=== PATIENT | female | born 1970 | race Caucasian/White ===

== ENCOUNTER → 2016-11-24 | Outpatient (CLI) | payer OTHER ==
[~2016-11-24] MED LIST: CYMB60CA3 PO; DIPH25CA PO; EPIP0.3I2 INJ; LISI20TA3 PO; PERC5TAB6 PO; TRAZ100T4 PO; TRAZ150T14 PO
== END | disposition home or self-care (01) ==
LOC: M OUTALCOH 10:07
PROVIDERS: ATTEND Psychiatry & Neurology Psychiatry
DX: F15.20 Other stimulant dependence, uncomplicated (principal); F14.20 Cocaine dependence, uncomplicated

== ENCOUNTER → 2016-11-30 | Outpatient (REF) | payer OTHER ==
[2016-11-30 16:06] LABS: BASO # 0.1 K/mm3 (0.0-0.2); BASO % 1.2 % (0.0-1.0); EOS # 0.1 K/mm3 (0.0-0.50); LARGE UNSTAINED CELL # 0.1 K/mm3 (0.0-0.4); LARGE UNSTAINED CELL % 1.2 % (0.0-4.0); LYMPH # 1.6 K/mm3 (1.5-4.5); LYMPH % 15.5 % (24.0-44.0); MEAN CORPUSCULAR HEMOGLOBIN 28.8 pg (27.0-33.0); MEAN CORPUSCULAR HGB CONC 31.7 g/dl (32.0-36.5); MEAN CORPUSCULAR VOLUME 90.9 fl (80.0-96.0); MONO # 0.7 K/mm3 (0.0-0.8); MONO % 6.6 % (0.0-5.0); NEUTROPHILS # 7.4 K/mm3 (1.8-7.7); NEUTROPHILS % 74.7 % (36.0-66.0); PLATELET COUNT, AUTOMATED 444 k/mm3 (150-450); RED CELL DISTRIBUTION WIDTH 14.3 % (11.5-14.5); WHITE BLOOD COUNT 9.9 K/mm3 (4.0-10.0)
[2016-11-30 16:33] LABS: ALBUMIN 3.5 GM/DL (3.2-5.2); ALBUMIN/GLOBULIN RATIO 0.73 (1.00-1.93); ALKALINE PHOSPHATASE 66 U/L (45-117); ALT/SGPT 70 U/L (12-78); ANION GAP 12 MEQ/L (8-16); AST/SGOT 42 U/L (15-37); BILIRUBIN,TOTAL 0.3 MG/DL (0.2-1.0); BLOOD UREA NITROGEN 14 MG/DL (7-18); CALCIUM LEVEL 8.9 MG/DL (8.5-10.1); CARBON DIOXIDE LEVEL 29 MEQ/L (21-32); CHLORIDE LEVEL 108 MEQ/L (98-107); CREATININE FOR GFR 0.57 MG/DL (0.55-1.02); FREE T4 0.91 NG/DL (0.76-1.46); GLOMERULAR FILTRATION RATE > 60.0 (>58); GLUCOSE, FASTING 77 MG/DL (70-105); POTASSIUM SERUM 4.9 MEQ/L (3.5-5.1); SODIUM LEVEL 149 MEQ/L (136-145); TOTAL PROTEIN 8.3 GM/DL (6.4-8.2)
[2016-12-01 09:30] LABS: HEPATITIS B SURFACE ANTIBODY NEGATIVE (POSITIVE)
== END | disposition home or self-care (01) ==
LOC: M SFHCPLAZ 11:03
PROVIDERS: ATTEND Nurse Practitioner Family
DX: R76.8 Other specified abnormal immunological findings in serum (principal); F41.9 Anxiety disorder, unspecified

== ENCOUNTER → 2016-12-01 | Outpatient (REF) | payer MEDICAID, OTHER ==
[2016-12-04 10:09] LABS: BENZODIAZEPINES, URINE SCREEN Negative ng/mL (Cutoff=200); METHADONE, URINE SCREEN Negative ng/mL (Cutoff=300); pH, URINE 5.9 (4.5-8.9)
== END | disposition home or self-care (01) ==
LOC: M SFHCPLAZ 15:29
PROVIDERS: ATTEND Nurse Practitioner Family
DX: F19.10 Other psychoactive substance abuse, uncomplicated (principal); R11.0 Nausea

== ENCOUNTER → 2016-12-08 | Outpatient (CLI) | payer MEDICAID, OTHER ==
--- NOTE | 2016-12-08 09:45 | REP ---
Right upper quadrant sonography: History: Hepatitis C. Comparison CT study October 18, 2016. Findings: Scanning through the right upper quadrant of the abdomen demonstrates a normal sized thin-walled gallbladder without evidence of stone or polyp. Common bile duct is normal measuring 0.4 cm in greatest diameter. There are multiple hepatic cysts seen in both the right and left lobe. The largest left lobe cysts measure 2.4 and 2.3 cm in greatest diameter. The two largest cysts in the right lobe measure 2.3 and 3.1 cm in greatest diameter. These correlate well with CT findings. No solid liver mass lesion is appreciated. The liver is not felt to be enlarged. There is no evidence of ascites. No pancreatic abnormality is observed. Normal caliber aorta is seen. No right renal abnormality is seen. Right kidney measures 12.6 x 6.2 x 4.8 cm. Impression: Multiple hepatic cysts. Otherwise negative right upper quadrant sonography. Signed by Lucas Givens MD 12/08/2016 02:38 P
== END | disposition home or self-care (01) ==
LOC: M RAD 07:36
PROVIDERS: ATTEND Nurse Practitioner Family
DX: R76.8 Other specified abnormal immunological findings in serum (principal); K76.89 Other specified diseases of liver

== ENCOUNTER 2016-12-13 13:00 | Outpatient (RCR) | payer MEDICAID | END 2016-12-19 | disposition home or self-care (01) | LOC: M OUTALCOH 13:00 | PROVIDERS: ATTEND Psychiatry & Neurology Psychiatry | DX: F15.20 Other stimulant dependence, uncomplicated (principal); F14.20 Cocaine dependence, uncomplicated ==

== ENCOUNTER 2017-02-16 07:40 | Inpatient (IN) | payer MEDICAID, OTHER ==
[~2017-02-16] VITALS: Ht 162.6 cm; Wt 73.2 kg
[2017-02-16] MEDS ORDERED: BISACODYL 10 MG SUPP PR PRN (09:00)
[2017-02-16] MEDS ORDERED: ONDANSETRON 4 MG TAB (S0181) PO PRN (09:00)
[2017-02-16] MEDS ORDERED: MORPHINE 2 MG/ML 1ML SYRINGE IV PRN (09:00)
[2017-02-16 10:00] VITALS: BP 165/92
[2017-02-16 10:12] LABS: BASO % 0.4 % (0.0-1.0); EOS # 0.1 K/mm3 (0.0-0.50); EOS % 1.5 % (0.0-3.0); LARGE UNSTAINED CELL # 0.1 K/mm3 (0.0-0.4); LYMPH # 1.6 K/mm3 (1.5-4.5); LYMPH % 19.1 % (24.0-44.0); MEAN CORPUSCULAR HEMOGLOBIN 27.6 pg (27.0-33.0); MEAN CORPUSCULAR VOLUME 86.3 fl (80.0-96.0); MONO # 0.3 K/mm3 (0.0-0.8); MONO % 4.2 % (0.0-5.0); NEUTROPHILS % 73.7 % (36.0-66.0); PLATELET COUNT, AUTOMATED 310 k/mm3 (150-450); RED CELL DISTRIBUTION WIDTH 13.9 % (11.5-14.5); WHITE BLOOD COUNT 8.1 K/mm3 (4.0-10.0)
[2017-02-16 10:17] LABS: INR 0.99
[2017-02-16 10:34] LABS: ERYTHROCYTE SEDIMENTATION RATE 19 mm/hr (0-20)
[2017-02-16] MEDS ORDERED: TRAZ100T4 PO (10:34)
[2017-02-16] MEDS ORDERED: VITA-130 PO (10:35)
[2017-02-16] MEDS ORDERED: IBUP80TA PO (10:36)
[2017-02-16] MEDS: PERCOCET 5MG/325MG TAB PO PRN ×2 (10:37→18:50)
[2017-02-16 11:00] LABS: ALBUMIN 3.7 GM/DL (3.2-5.2); ALBUMIN/GLOBULIN RATIO 0.93 (1.00-1.93); ALKALINE PHOSPHATASE 61 U/L (45-117); ALT/SGPT 69 U/L (12-78); ANION GAP 10 MEQ/L (8-16); AST/SGOT 52 U/L (15-37); BILIRUBIN,TOTAL 0.2 MG/DL (0.2-1.0); BLOOD UREA NITROGEN 14 MG/DL (7-18); CALCIUM LEVEL 8.6 MG/DL (8.5-10.1); CARBON DIOXIDE LEVEL 27 MEQ/L (21-32); CHLORIDE LEVEL 104 MEQ/L (98-107); CREATININE FOR GFR 0.63 MG/DL (0.55-1.02); GLOMERULAR FILTRATION RATE > 60.0 (>58); GLUCOSE, FASTING 111 MG/DL (70-105); POTASSIUM SERUM 3.9 MEQ/L (3.5-5.1); SODIUM LEVEL 141 MEQ/L (136-145); T UPTAKE 30 % (30-39); THYROXINE (T4) 8.1 UG/DL (4.5-12.0); TOTAL PROTEIN 7.7 GM/DL (6.4-8.2)
[2017-02-16] MEDS ORDERED: LIDOCAINE 1% MDV 20ML VIAL As Ordered ONE (12:03)
[2017-02-16] MEDS: DULoxetine 30 MG CAP (CYMBALTA) PO SCH (13:21)
[2017-02-16] MEDS: SENOKOT S TAB PO SCH ×2 (13:21→22:15)
[2017-02-16] MEDS: ENOXAPARIN 30 MG/0.3 ML SYR (J1650) SC SCH (13:22)
[2017-02-16 14:00] VITALS: BP 146/85
--- NOTE | 2017-02-16 14:42 | REP ---
Clinical: Chest pain . Comparison: 10/07/2016 . Technique: PA and lateral. Findings: The mediastinum and cardiac silhouette are normal. The lung colindres are clear and without acute consolidation, effusion, or pneumothorax. The skeletal structures are intact and normal. Impression: 1. No acute cardiopulmonary process. Signed by García Regalado MD 02/16/2017 02:33 P
--- NOTE | 2017-02-16 17:23 | IPN ---
DATE: 02/16/2017 Isha was seen in [address] [place] [address]. She was a direct admit from the office by Serena Chow. She underwent image-guided biopsy of an area of discitis/osteomyelitis of vertebral spine. Dr. Adair, from infectious disease, is out of the country, but has been in communication. It was under her recommendation the patient was admitted, biopsy be obtained, sent for acid-fast bacillus culture and gram stain. She will be consulted upon her return. Neurosurgery has been consulted, as well, as they ordered the original imaging study. PHYSICAL EXAMINATION: She is resting in bed. LUNGS: Clear. HEART: Regular rate and rhythm. ABDOMEN: Soft, nontender. She has normal strength, sensation and reflexes in lower extremities. IMPRESSION: Vertebral osteomyelitis L3-L4 status post image-guided biopsy. Gram stain returned negative for any organisms. Cultures pending, Currently not on antibiotics. She is neurologically intact. Antibiotic therapy will be determined after the results of the culture come back.
--- NOTE | 2017-02-16 17:32 | IPN ---
DATE: 02/16/2015 I had a telephone conversation with Dr. Patt Adair. She is away, but plans on seeing the patient on Sunday. We reviewed the case. 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 This is based upon the lack of an elevated erythrocyte sedimentation rate and normal C-reactive protein with normal white count. Apparently propionibacterium acnes has been recognized as a cause of discitis without significant inflammation. 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 Recommendation was to start Rocephin 2 grams intravenously (IV) daily. Patient has an allergy to penicillin with hives, but benefit outweighs the risk and, under the recommendation from infectious disease, we will start the Rocephin. It is unlikely she will have a reaction. If she does, she will be here in the hospital and I will call the on-call hospitalist so they know about the pending Rocephin dosing.
[2017-02-16] MEDS: cefTRIAXone SOD 2 GM in D5W MINI-BAG PLUS 50 ML IV SCH (18:00)
--- NOTE | 2017-02-16 18:16 | REP ---
CT GUIDED L3-4 DISC BIOPSY: The procedure was performed under the direct supervision of Dr. Christopher. The risks and benefits of the procedure were explained to the patient and informed consent was obtained. The L3-4 disc space was localized using CT guidance. The skin was prepped and draped in a sterile fashion. 1% Xylocaine was used as a local anesthetic. Using CT guidance a 17/18-gauge coaxial needle biopsy system was inserted and 4 core biopsy samples were obtained and sent to the lab. The patient tolerated the procedure well and there were no immediate complications. Reviewed by TRACEY Wagoner 02/19/2017 06:51 PEdited and Signed by Faisal Christopher MD 02/22/2017 09:51 A
[2017-02-16 22:00] VITALS: BP 133/75
[2017-02-16] MEDS: traZODone 100 MG TAB PO SCH (22:15)
--- NOTE | 2017-02-16 22:23 | ECGEPIP ---
Stationary ECG Study [facility] Test Date: 2017-02-16 Pat Name: OLIVER THOMPSON Department: Room: [place] [address] Gender: F Manufacture Specialist: TERRI : 1970 Requested By: Serena COLON Order Number: [id number] Reading MD: Chris Dickinson Measurements Intervals [place] Rate: 75 P: 42 OH: 171 QRS: 35 QRSD: 93 T: 40 QT: 383 QTc: 430 Interpretive Statements Normal sinus rhythm Normal EKG Compared to prior tracing of 10/07/2016, heart rate is slower Electronically Signed On 02-16-2017 22:23:35 EDT by Chris Dickinson
[2017-02-17 06:00] VITALS: BP 121/75
[2017-02-17] MEDS: PERCOCET 5MG/325MG TAB PO PRN ×3 (07:43→22:44)
[2017-02-17] MEDS: SENOKOT S TAB PO SCH ×2 (09:11→21:17)
[2017-02-17] MEDS: DULoxetine 30 MG CAP (CYMBALTA) PO SCH (09:11)
[2017-02-17] MEDS: ENOXAPARIN 30 MG/0.3 ML SYR (J1650) SC SCH (09:12)
--- NOTE | 2017-02-17 10:55 | ECHO ---
DATE OF PROCEDURE: 02/16/2017 REFERRING PHYSICIAN: ISAIAH Thomas PATIENT LOCATION: Room 4216 REASON FOR ECHOCARDIOGRAM: Endocarditis. 2D MEASUREMENTS: IVS: 0.9 cm LV: 4.7 cm LVPW: 0.9 cm LA: 3.1 cm Aorta: 3.3 cm IVC: 1.3 cm DOPPLER MEASUREMENTS: Peak velocity across the aortic valve: 1.8 m/s Peak velocity across the LVOT: 1.5 m/s Mitral E: 1.0, Mitral A: 0.75, with a ratio of 1.3 Maximum tricuspid valve velocity: 2.0 m/s 2D COMMENTS: 1. Normal left ventricular size, wall thickness and normal global left ventricular systolic function. The estimated global left ventricular systolic ejection fraction is 65% to 70%. 2. Normal left atrium. Normal right atrium and right ventricle. 3. The atrial septum appeared to be normal without evidence of defect or shunt. 4. Normal aortic root. 5. No pericardial effusion. 6. Minimally calcified aortic valve with normal leaflet excursion. The mitral valve leaflets appeared to be normal in limited views. Normal tricuspid valve and pulmonic valve. The proximal pulmonary artery branches were not well visualized. 7. The inferior vena cava was normal in size, central venous pressure is most likely normal. DOPPLER: It detects trace tricuspid regurgitation. The calculated pulmonary artery systolic pressure was normal. There was a maximum gradient of 13 mmHg across the aortic valve with a mean gradient of 9 mmHg. Abnormal relaxation pattern was noted across the septal and lateral mitral valve annulus consistent with a pseudonormal pattern, left ventricular and diastolic pressure might be elevated. IMPRESSION: 1. Normal global left ventricular systolic function. There are some features of left ventricular diastolic dysfunction, but may be artifactual. 2. Aortic valve sclerosis with trivial aortic stenosis, but no evidence of obvious aortic regurgitation. 3. Trace tricuspid regurgitation with a normal calculated pulmonary artery systolic pressure. 4. No vegetations were noted in this transthoracic echocardiogram, but cannot be entirely ruled out. If any concern, to consider a transesophageal echocardiogram.
[2017-02-17 14:00] VITALS: BP 170/97
[2017-02-17 14:46] VITALS: BP 162/82
--- NOTE | 2017-02-17 15:00 | IPNPDOC ---
Subjective Date Seen The patient was seen on 02/17/17. Subjective Chief Complaint/HPI The patient is a 47-year-old female admitted with a reason for visit of Osteomyelitis, Discitis. Events since last encounter patient states she has some lower back aching on both sides but other rocha had no complaints; nurse is at bedside to recheck manual BP as automated SBP was high in 200s - repeat is improved Constitutional: Denies: Chills, Fever ENT: Denies: Head Aches Skin: Denies: Rash Pulmonary: Denies: Cough, Dyspnea Cardiovascular: Denies: Chest Pain, Palpitations Gastrointestinal: Denies: Abdominal Pain, Nausea, Vomiting Genitourinary: Denies: Dysuria Musculoskeletal: Reports: Back Pain (bilateral lower back pain) Neurological: Denies: Confusion, Incoordination, Numbness (denies paresthesias) , Weakness (walking without difficulty) Psych: Reports: Mood Normal Objective Physical Examination General Exam: Positive: Alert, No Acute Distress Eye Exam: Positive: Conjunctiva & lids normal, EOMI, PERRLA ENT Exam: Positive: Mucous membr. moist/pink Chest Exam: Positive: Clear to auscultation, Normal air movement Heart Exam: Positive: Normal S1, Normal S2, Rate Normal, Regular Rhythm, Negative: Murmurs Abdomen Exam: Positive: Normal bowel sounds, Soft, Negative: Tenderness Extremity Exam: Negative: Edema Skin Exam: Positive: Nl turgor and temperature, Negative: Rash Neuro Exam: Positive: Cranial Nerves 3-12 NL, Normal Gait, Normal Speech, Normal Tone, Strength at 5/5 X4 ext Psych Exam: Positive: Mental status NL, Mood NL, Oriented x 3 Other physical findings No back tenderness to palpation Assessment /Plan Problems (1) Discitis Status: Acute Problem Text: MRI with contrast done 02/12/[address] Hernández showed disciitis osteomyelitis at L3-L4 level with mild thecal sac compression. Inflammatory markers are normal (WBCs, ESR, CRP); per Dr. Adair, propionibacterium acnes can cause disciitis without significant inflammation, and appropriate treatment is being given with IV rocephin. Neuro exam is normal today and patient's pain is controlled on oxycodone/APAP as needed. CT-guided biopsy was done yesterday; gram stain shows few WBCs and no organisms ; cultures are pending. Dr. Hernández and Dr. Adair consulted - Dr. Adair to see her Sunday. (2) Anxiety Status: Chronic Response to Treatment: Stable Problem Text: Continue home cymbalta and trazodone QHS. (3) HTN (hypertension) Status: Chronic Problem Text: BP elevated upon manual recheck today. Patient states she was previously on triamterene-HCTZ (dose unknown) but this was stopped due to low BP. Will continue to monitor. (4) History of substance use Status: Chronic Response to Treatment: Stable Problem Text: Patient last used marijuana 11/2016 and cocaine in 2012; denies h/ o IV drug use. (5) Hepatitis C antibody positive in blood Status: Acute Problem Text: Per outpatient notes, patient's uses IV heroin and also tested positive for Hep C. Plan/VTE VTE Prophylaxis Ordered?: Yes (lovenox) VS, I&O, 24H, Fishbone Vital Signs/I&O Vital Signs Date Time Temp Pulse Resp B/P Pulse Ox O2 Delivery O2 Flow Rate FiO2 02/17/17 13:24 16 96 Room Air 02/17/17 06:00 96.8 69 121/75 I&O- Last 24 Hours up to 6 AM 02/17/17 06:00 Intake Total 750 ml Output Total 950 ml Balance -200 ml Laboratory Data Microbiology Microbiology 02/16/17 Blood Culture - Preliminary, Resulted No growth after 24 hours . All specim... 02/16/17 Anaerobic Culture, Received Pending 02/16/17 Gram Stain - Final, Resulted 02/16/17 Body Fluid Culture, Resulted Pending 02/16/17 Acid Fast Stain, Received Pending 02/16/17 Mycobacterial Culture, Received Pending 02/16/17 Gram Stain - Final, Resulted 02/16/17 Surgical Biopsy Culture, Resulted Pending JOLLY DICKINSON MD Feb 17, 2017 15:00
[2017-02-17] MEDS: cefTRIAXone SOD 2 GM in D5W MINI-BAG PLUS 50 ML IV SCH (18:10)
[2017-02-17] MEDS: traZODone 100 MG TAB PO SCH (21:17)
[2017-02-17 22:00] VITALS: BP 140/100
[2017-02-18 06:00] VITALS: BP 122/78
[2017-02-18] MEDS: DULoxetine 30 MG CAP (CYMBALTA) PO SCH (09:48)
[2017-02-18] MEDS: ENOXAPARIN 30 MG/0.3 ML SYR (J1650) SC SCH (09:48)
[2017-02-18] MEDS: SENOKOT S TAB PO SCH ×2 (09:48→21:33)
[2017-02-18] MEDS: PERCOCET 5MG/325MG TAB PO PRN ×3 (09:51→21:34)
[2017-02-18 11:04] LABS: MEAN CORPUSCULAR HEMOGLOBIN 27.3 pg (27.0-33.0); MEAN CORPUSCULAR HGB CONC 31.6 g/dl (32.0-36.5); MEAN CORPUSCULAR VOLUME 86.4 fl (80.0-96.0); RED CELL DISTRIBUTION WIDTH 13.9 % (11.5-14.5); WHITE BLOOD COUNT 6.6 K/mm3 (4.0-10.0)
[2017-02-18 11:28] LABS: ANION GAP 7 MEQ/L (8-16); BLOOD UREA NITROGEN 12 MG/DL (7-18); CALCIUM LEVEL 8.6 MG/DL (8.5-10.1); CARBON DIOXIDE LEVEL 30 MEQ/L (21-32); CHLORIDE LEVEL 105 MEQ/L (98-107); CREATININE FOR GFR 0.65 MG/DL (0.55-1.02); GLOMERULAR FILTRATION RATE > 60.0 (>58); GLUCOSE, FASTING 80 MG/DL (70-105); POTASSIUM SERUM 3.8 MEQ/L (3.5-5.1); SODIUM LEVEL 142 MEQ/L (136-145)
--- NOTE | 2017-02-18 13:27 | IPNPDOC ---
Subjective Date Seen The patient was seen on 02/18/17. Subjective Chief Complaint/HPI The patient is a 47-year-old female admitted with a reason for visit of Osteomyelitis, Discitis. Events since last encounter Patient is c/o worsening back pain today - states it is radiating up her back from her lower back. Constitutional: Denies: Chills, Fever Skin: Denies: Rash Pulmonary: Denies: Cough, Dyspnea Cardiovascular: Denies: Chest Pain, Palpitations Gastrointestinal: Denies: Abdominal Pain, Nausea, Vomiting Genitourinary: Denies: Dysuria Musculoskeletal: Reports: Back Pain, Denies: Neck Pain Neurological: Denies: Confusion, Numbness, Weakness Objective Physical Examination General Exam: Positive: Alert, No Acute Distress Eye Exam: Positive: Conjunctiva & lids normal, EOMI, PERRLA ENT Exam: Positive: Mucous membr. moist/pink Chest Exam: Positive: Clear to auscultation, Normal air movement Heart Exam: Positive: Normal S1, Normal S2, Rate Normal, Regular Rhythm, Negative: Murmurs Abdomen Exam: Positive: Normal bowel sounds, Soft, Negative: Tenderness Extremity Exam: Negative: Edema Skin Exam: Positive: Nl turgor and temperature, Negative: Rash Neuro Exam: Positive: Cranial Nerves 3-12 NL, Normal Gait, Normal Speech, Normal Tone, Strength at 5/5 X4 ext Psych Exam: Positive: Mental status NL, Mood NL, Oriented x 3 Assessment /Plan Problems (1) Discitis Status: Acute Problem Text: 02/18 - Disc tissue/fluid biopsies are positive for Staph aureus today; I d/w micro - determination of MRSA vs. MSSA should be available tomorrow. Will d/c ceftriaxone and give Vancomycin until MRSA these results are available. WBCs remain normal today. Due to increased pain, percocet increase today. 02/17 - MRI with contrast done 02/12/[address] Hernández showed disciitis osteomyelitis at L3-L4 level with mild thecal sac compression. Inflammatory markers are normal (WBCs, ESR, CRP); per Dr. Adair, propionibacterium acnes can cause disciitis without significant inflammation, and appropriate treatment is being given with IV rocephin. Neuro exam is normal today and patient's pain is controlled on oxycodone/APAP as needed. CT-guided biopsy was done yesterday; gram stain shows few WBCs and no organisms ; cultures are pending. Dr. Hernández and Dr. Adair consulted - Dr. Adair to see her Sunday. (2) Anxiety Status: Chronic Response to Treatment: Stable Problem Text: Continue home cymbalta and trazodone QHS. (3) HTN (hypertension) Status: Chronic Problem Text: 02/18 - BP has remained at goal. 02/17 - BP elevated upon manual recheck today. Patient states she was previously on triamterene-HCTZ (dose unknown) but this was stopped due to low BP. Will continue to monitor. (4) History of substance use Status: Chronic Response to Treatment: Stable Problem Text: Patient last used marijuana 11/2016 and cocaine in 2012; denies h/ o IV drug use. Toxicology ordered by Dr. Hernández - results are pending. (5) Hepatitis C antibody positive in blood Status: Acute Problem Text: Per outpatient notes, patient's uses IV heroin and also tested positive for Hep C. Plan/VTE VTE Prophylaxis Ordered?: Yes (lovenox) VS, I&O, 24H, Fishbone Vital Signs/I&O Vital Signs Date Time Temp Pulse Resp B/P Pulse Ox O2 Delivery O2 Flow Rate FiO2 02/18/17 10:22 16 Room Air 02/18/17 06:00 99.4 92 122/78 98 I&O- Last 24 Hours up to 6 AM 02/18/17 06:00 Intake Total 420 ml Output Total 550 ml Balance -130 ml Laboratory Data 24H LABS Laboratory Tests 2 02/17/17 16:01: 02/18/17 10:52: Anion Gap 7L, Blood Urea Nitrogen 12, Creatinine 0.65, Sodium Level 142, Potassium Level 3.8, Chloride Level 105, Carbon Dioxide Level 30, Calcium Level 8.6, Glomerular Filtration Rate > 60.0 CBC/BMP Laboratory Tests 02/18/17 10:52 Calcium Level 8.6, Red Blood Count 3.99 L, Mean Corpuscular Volume 86.4, Mean Corpuscular Hemoglobin 27.3, Mean Corpuscular Hemoglobin Concent 31.6 L, Red Cell Distribution Width 13.9 Microbiology Microbiology 02/16/17 Blood Culture - Preliminary, Resulted No Growth after 48 hours. All Specime... 02/16/17 Anaerobic Culture - Final, Complete 02/16/17 Gram Stain - Final, Resulted 02/16/17 Body Fluid Culture - Preliminary, Resulted Staphylococcus Aureus 02/16/17 Acid Fast Stain, Received Pending 02/16/17 Mycobacterial Culture, Received Pending 02/16/17 Gram Stain - Final, Resulted 02/16/17 Surgical Biopsy Culture - Preliminary, Resulted Staphylococcus Aureus JOLLY DICKINSON MD Feb 18, 2017 13:27
[2017-02-18 14:00] VITALS: BP 112/74
[2017-02-18] MEDS: VANCOMYCIN HCL 1,000 MG, VIAL MATE ADAPTER 1 EACH in D5W 250 ML IV SCH ×2 (14:04→21:33)
[2017-02-18] MEDS ORDERED: VANCOMYCIN HCL 750 MG, VIAL MATE ADAPTER 1 EACH in D5W 250 ML IV ONE (15:00)
--- NOTE | 2017-02-18 15:04 | PHACANCOPD ---
PHARMACY VANCOMYCIN DOSING Pt Demographics Demographics Patient Age:47 , Weight:72.500 , Gender: female Adjusted Body Weight Date: 02/18/17, Adjusted Body Weight: Kg Events Past 24 Hours Events Past 24 Hours: YES: Pending Diagnostics Vancomycin Vancomycin indication: vertebral discitis/osteomyelitis Vancomycin Target Ranges: 10-20 mcg/ml Vancomycin Load Y/N: Yes Load Dose Date Time Vancomycin Load Dose: 1750mg Date: 02/18/17 Time: 1400 Vancomycin Dose Date: 02/18/17. Current Vancomycin Dose: [1g IV Q8H] Intermittent Dosing?: No Labs Labs Item Value Date Time White Blood Count 6.6 K/mm3 02/18/17 1052 White Blood Count 8.1 K/mm3 02/16/17 1003 Creatinine 0.65 MG/DL 02/18/17 1052 Creatinine 0.63 MG/DL 02/16/17 1003 Micro Microbiology 02/16/17 Blood Culture - Preliminary, Resulted No Growth after 48 hours. All Specime... 02/16/17 Anaerobic Culture - Final, Complete 02/16/17 Gram Stain - Final, Resulted 02/16/17 Body Fluid Culture - Preliminary, Resulted Staphylococcus Aureus 02/16/17 Acid Fast Stain, Received Pending 02/16/17 Mycobacterial Culture, Received Pending 02/16/17 Gram Stain - Final, Resulted 02/16/17 Surgical Biopsy Culture - Preliminary, Resulted Staphylococcus Aureus Creatinine Clearance Date:02/18/17. Estimated Creatinine Clearance: [~99.2ml/min]. Pending Labs Vancomycin trough scheduled 02/19/17 @1300, prior to the 4th dose Assessment and Plan Maintaining Current Dose?: Yes Reason for dose change: No Dose Change Pharmacist Note Pharmacist Note Date: 02/18/17. Pharmacist note: Day #1 empiric vancomycin therapy initiated with a 1750mg loading dose, followed by a maintenance regimen of 1g IV Q8H for the treatment of L3/L4 vertebral discitis/osteomyelitis with resulting fluid/tissue cultures growing staph aureus - pending finalized report of MSSA or MRSA. We will aim for a goal trough of 10-20mcg/ml per provider. WBC currently WNL, and patient has been mildly febrile within the past 24 hours. No PMH of MRSA or vanco use here at [facility], but patient does have a PMH of illicit IV drug use. A vancomycin trough has been scheduled 02/19/17 @1300, prior to the 4th dose. We will continue to monitor and make adjustments as needed. BEVERLEY [facility] Feb 18, 2017 15:03
[2017-02-18] MEDS: traZODone 100 MG TAB PO SCH (21:33)
[2017-02-18 22:00] VITALS: BP 136/79
[2017-02-19] MEDS: VANCOMYCIN HCL 1,000 MG, VIAL MATE ADAPTER 1 EACH in D5W 250 ML IV SCH ×2 (05:24→14:24)
[2017-02-19 05:53] LABS: MEAN CORPUSCULAR HEMOGLOBIN 27.9 pg (27.0-33.0); MEAN CORPUSCULAR HGB CONC 31.9 g/dl (32.0-36.5); MEAN CORPUSCULAR VOLUME 87.4 fl (80.0-96.0); RED CELL DISTRIBUTION WIDTH 13.9 % (11.5-14.5); WHITE BLOOD COUNT 5.4 K/mm3 (4.0-10.0)
[2017-02-19 06:00] VITALS: BP 110/62
[2017-02-19 06:03] LABS: ANION GAP 7 MEQ/L (8-16); BLOOD UREA NITROGEN 13 MG/DL (7-18); CALCIUM LEVEL 7.8 MG/DL (8.5-10.1); CARBON DIOXIDE LEVEL 28 MEQ/L (21-32); CHLORIDE LEVEL 106 MEQ/L (98-107); CREATININE FOR GFR 0.52 MG/DL (0.55-1.02); GLOMERULAR FILTRATION RATE > 60.0 (>58); GLUCOSE, FASTING 113 MG/DL (70-105); POTASSIUM SERUM 3.7 MEQ/L (3.5-5.1); SODIUM LEVEL 141 MEQ/L (136-145)
[2017-02-19] MEDS: ENOXAPARIN 30 MG/0.3 ML SYR (J1650) SC SCH (08:19)
[2017-02-19] MEDS: DULoxetine 30 MG CAP (CYMBALTA) PO SCH (08:19)
[2017-02-19] MEDS: SENOKOT S TAB PO SCH ×2 (08:19→20:43)
--- NOTE | 2017-02-19 10:58 | IPNPDOC ---
Subjective Date Seen The patient was seen on 02/19/17. Subjective Chief Complaint/HPI Pt without new concerns. Reports good pain control. She is ambulating in the halls with her back brace on. General: Denies: Fatigue Constitutional: Denies: Chills, Fever Pulmonary: Denies: Cough, Dyspnea Cardiovascular: Denies: Chest Pain, Palpitations Gastrointestinal: Denies: Diarrhea, Nausea, Vomiting Musculoskeletal: Reports: Back Pain Psych: Reports: Mood Normal Objective Physical Examination General Exam: Positive: Alert, No Acute Distress Eye Exam: Positive: Conjunctiva & lids normal, EOMI, PERRLA ENT Exam: Positive: Mucous membr. moist/pink Chest Exam: Positive: Clear to auscultation, Normal air movement Heart Exam: Positive: Normal S1, Normal S2, Rate Normal, Regular Rhythm, Negative: Murmurs Abdomen Exam: Positive: Normal bowel sounds, Soft, Negative: Tenderness Extremity Exam: Negative: Edema Skin Exam: Positive: Nl turgor and temperature, Other skin issue (appears to have injection garzon on B arms, covered by makeup/foundation), Negative: Rash Neuro Exam: Positive: Cranial Nerves 3-12 NL, Normal Gait, Normal Speech, Normal Tone, Strength at 5/5 X4 ext Psych Exam: Positive: Mental status NL, Mood NL, Oriented x 3 Assessment /Plan Problems (1) Discitis Status: Acute Problem Text: 02/19 Mana consulted-PICC to be placed for 6W cefazolin-plan to live with mother for duration of therapy-obvious risk of misuse of CVC (last IV drug per SO ~4M prior)-previously established c outpatient drug rehab-consult PFS to re-establish with them at d/c 02/17 - MRI with contrast done 02/12/[address] Hernández showed disciitis osteomyelitis at L3-L4 level with mild thecal sac compression. Inflammatory markers are normal (WBCs, ESR, CRP); per Dr. Adair, propionibacterium acnes can cause disciitis without significant inflammation, and appropriate treatment is being given with IV rocephin. 02/16/17 L3/4 disc biopsy culture 2/2 MSSA + (same organism as 's endocarditis) (2) Anxiety Status: Chronic Response to Treatment: Stable Problem Text: Continue home cymbalta and trazodone QHS. (3) HTN (hypertension) Status: Chronic Problem Text: 02/18 - BP has remained at goal. 02/17 - BP elevated upon manual recheck today. Patient states she was previously on triamterene-HCTZ (dose unknown) but this was stopped due to low BP. Will continue to monitor. (4) History of substance use Status: Chronic Response to Treatment: Stable Problem Text: Patient last used marijuana 11/2016 and cocaine in 2012; denies h/ o IV drug use. Toxicology ordered by Dr. Hernández - results are pending. (5) Hepatitis C antibody positive in blood Status: Acute Problem Text: Per outpatient notes, patient's uses IV heroin and also tested positive for Hep C. Plan/VTE VTE Prophylaxis Ordered?: Yes (lovenox) VS, I&O, 24H, Fishbone Vital Signs/I&O Vital Signs Date Time Temp Pulse Resp B/P Pulse Ox O2 Delivery O2 Flow Rate FiO2 02/19/17 06:00 97.7 66 17 110/62 98 Room Air I&O- Last 24 Hours up to 6 AM 02/19/17 05:59 Intake Total 1645 ml Output Total 450 ml Balance 1195 ml Laboratory Data 24H LABS Laboratory Tests 2 02/19/17 05:40: Anion Gap 7L, Blood Urea Nitrogen 13, Creatinine 0.52L, Sodium Level 141, Potassium Level 3.7, Chloride Level 106, Carbon Dioxide Level 28, Calcium Level 7.8L, Glomerular Filtration Rate > 60.0 CBC/BMP Laboratory Tests 02/19/17 05:40 Calcium Level 7.8 L, Red Blood Count 3.77 L, Mean Corpuscular Volume 87.4, Mean Corpuscular Hemoglobin 27.9, Mean Corpuscular Hemoglobin Concent 31.9 L, Red Cell Distribution Width 13.9 Microbiology Microbiology 02/16/17 Blood Culture - Preliminary, Resulted No Growth after 72 hours. All specime... 02/16/17 Anaerobic Culture - Final, Complete 02/16/17 Gram Stain - Final, Complete 02/16/17 Body Fluid Culture - Final, Complete Staphylococcus Aureus 02/16/17 Acid Fast Stain, Received Pending 02/16/17 Mycobacterial Culture, Received Pending 02/16/17 Gram Stain - Final, Complete 02/16/17 Surgical Biopsy Culture - Final, Complete Staphylococcus Aureus LUCIAN WHITTAKERC Feb 19, 2017 10:58 Kiran Cantrell M.D. Feb 19, 2017 17:03 LUCIAN WHITTAKER PA-C Feb 19, 2017 10:58
[2017-02-19 14:00] VITALS: BP 109/56
[2017-02-19] MEDS: PERCOCET 5MG/325MG TAB PO PRN ×2 (14:24→20:44)
[2017-02-19] MEDS ORDERED: diphenhydrAMINE 25 MG CAP PO PRN (15:45)
--- NOTE | 2017-02-19 20:04 | CR ---
DATE OF CONSULTATION: 02/19/2017 TIME PATIENT WAS SEEN: 15:30 CONSULTING PHYSICIAN: Dr. Cantrell DOCUMENT MANAGEMENT SPECIALIST: Dr. Adair REASON FOR CONSULTATION: Osteomyelitis of the lumbar spine, discitis at L3 to L4 level. CHIEF COMPLAINT: Back pain. HISTORY OF PRESENT ILLNESS: 47-year-old female with anxiety, hypertension, history of IV substance abuse, Hepatitis C presented with severe back pain was sent from Dr. Hernández's office. Patient has having back pain for several months and it has been getting worse. She sees Dr. Hernández, neurosurgeon, and had an MRI done 02/12/2017 which showed discitis, osteomyelitis at level L3 through L4 with minimal thecal sac compression. However inflammatory markers has been normal. She did receive a CT guided aspiration and it showed patient has Staphylococcus aureus sensitive to everything except erythromycin and penicillin G. In addition, patient used to be a drug user, has been on cocaine and Soledad. Otherwise patient currently denies any fever or chills or chest pain, trouble breathing, abdominal pain, nausea, vomiting, diarrhea, constipation, problem with urination, still admits to severe lower back pain. ALLERGIES: Patient is allergic to erythromycin which makes her throat close. Iodine also makes her throat close. Penicillin she develops hives and shortness of breath and feels like her throat was closing. It was when she was a child. Bee venom gives her anaphylactic reaction same as seafood. HOME MEDICATIONS: - Vitamin C 500 mg by mouth every day - Benadryl 25 mg one tablet as needed - Cymbalta 60 mg one tablet by mouth every day - Epipen two packs 0.3 mg injection as directed as needed - ibuprofen 800 mg one tablet by mouth every 6 hours as needed - trazodone 100 mg one tablet by mouth at bedtime PAST MEDICAL HISTORY: Including 1. IV drug use. 2. Hypertension. 3. Chronic pain. 4. Insomnia. 5. Hepatitis C. 6. Anxiety. PAST SURGICAL HISTORY: 1. Hysterectomy. 2. Tonsillectomy. SOCIAL HISTORY: Patient is actively abusing substances, however she denies any tobacco or alcohol use. Currently not working. She did lose her custody of her 12-year-old son and she has been tested positive for opiates multiple times in the past. She has been to rehabilitation in the past as well. FAMILY HISTORY Non-contributory. REVIEW OF SYSTEMS: 12-point system reviewed, negative except as stated above. More significantly denies any fever, chills or chest pain, trouble breathing, abdominal pain, nausea, vomiting, diarrhea, constipation, any problem with urination still admits to lower back pain. Still admits to pain upon walking and also admits to a right sided leg cramp. PHYSICAL EXAMINATION: VITAL SIGNS: Temperature 98.7, pulse 82, respirations 17, blood pressure 109/56 , oxygen saturation 96% on room air. Patient is a morbidly obese female who was alert, awake, oriented times three who does not appear to be in distress lying comfortably in bed with head elevated at 45 degree angle. HEENT: Normocephalic, atraumatic. Extraocular motor intact. Mucous moist. NECK: Supple. No neck lymphadenopathy. CARDIOVASCULAR: Regular rate and rhythm. S1, S2. No murmurs, rubs or gallops. LUNGS: Clear to auscultation bilaterally. No wheezes, rales or rhonchi. ABDOMEN: Positive bowel sounds. Soft, non-tender, non-distended, no peritoneal signs. No ecchymosis. EXTREMITIES: No edema, clubbing or cyanosis. Significant track garzon were noted on b/l upper extremities. SKIN: Warm and dry. NEURO: Cranial nerves II through XII intact. No focal neuro deficit. Muscle strength was 5/5 bilaterally. No loss of sensation in bilateral lower extremity. Deep tendon reflexes were slightly reduced at the right side. LABS: WBC 5.4, hemoglobin 10.5, hematocrit 32.9 with platelet count of 287 and MCV of 87.4. PT 13.3, INR 0.99. Sodium 141, potassium 3.7, chloride 106, bicarbonate 28, BUN 13, creatinine 0.52 , Glomerular filtration rate (GFR) greater than 60, fasting glucose 130, calcium 7.8. Urine drug screen is currently pending. Patient had a CT guided needle aspiration of the back on 02/06/2017 which came back showing Staphylococcus aureus sensitive to clindamycin, gentamicin, Zyvox, oxacillin, tetracycline, Bactrim and vancomycin. Anaerobic culture was negative. Blood culture shows no growth after three days. Urine culture was positive for Escherichia coli (E.coli) which was rasheed sensitive. ASSESSMENT AND PLAN: 47-year-old female with past medical history of significant IV drug abuse, hypertension, anxiety, and also Hepatitis C presented with: 1. Severe back pain secondary to discitis at L3 through L4 level shown on MRI with contrast done on 02/12/2017. Patient's culture from CT guided needle biopsy shows Staphylococcus aureus with sensitive to clindamycin, gentamicin, Zyvox, oxacillin, tetracycline, Bactrim and vancomycin. Patient was on vancomycin 1 gram every 8 hours IV since 02/18/2017. Before that patient was on Rocephin from 02/16/2017 to 02/18/2017. Due to patient's penicillin allergy, we have switched patient to cefazolin 2 grams IV every 8 hours. Due to patient's penicillin allergy was more than 30 years when she was a child, 80% of people will outgrown the penicillin allergy after 10 years. In addition the cross reactivity between cefazolin and penicillin is less than 5%. She also had Rocephin on this admission without any reaction. At this point, we will likely keep patient on cefazolin 2 gram IV every 8 hours for 6 weeks. Patient will be going home with Peripherally inserted central catheter (PICC) line however patient will need home arrangement with her mother for the duration of the therapy. She will also need to establish outpatient drug rehabilitation due to the obvious risk of misuse of her Peripherally inserted central catheter (PICC) line. Patient will need outpatient follow up for her Hepatitis C. Patient has been discussed with attending doctor, Dr. Adair. My preceptor for this patient encounter was Dr. Dell Hernandez. The preceptor was physically present in the building during the encounter and was fully available as needed. All aspects of the patient interview, examination, medical decision making process, and medical care plan development were reviewed and approved by the preceptor. The preceptor is aware and concurs with the plan as stated in the body of this note and will attest to such by his/her co-signature. LYNDA
[2017-02-19] MEDS: traZODone 100 MG TAB PO SCH (20:43)
[2017-02-19 22:00] VITALS: BP 135/71
[2017-02-20 06:00] VITALS: BP 117/69
[2017-02-20] MEDS: SENOKOT S TAB PO SCH ×2 (08:30→20:02)
[2017-02-20] MEDS: DULoxetine 30 MG CAP (CYMBALTA) PO SCH (08:30)
--- NOTE | 2017-02-20 11:07 | IPNPDOC ---
Subjective Date Seen The patient was seen on 02/20/17. Subjective Chief Complaint/HPI Pt without new concerns. She is agreeable to go home with IV abx x 6, she met with Dr Adair yesterday. She plans on going to her mother's house. General: Denies: Fatigue Constitutional: Denies: Chills, Fever ENT: Denies: Head Aches Pulmonary: Denies: Cough, Dyspnea Cardiovascular: Denies: Chest Pain, Palpitations Gastrointestinal: Denies: Diarrhea, Nausea, Vomiting Musculoskeletal: Reports: Back Pain Psych: Reports: Mood Normal Objective Physical Examination General Exam: Positive: Alert, No Acute Distress ENT Exam: Positive: Mucous membr. moist/pink Chest Exam: Positive: Clear to auscultation, Normal air movement Heart Exam: Positive: Normal S1, Normal S2, Rate Normal, Regular Rhythm, Negative: Murmurs Abdomen Exam: Positive: Normal bowel sounds, Soft, Negative: Tenderness Extremity Exam: Negative: Edema Skin Exam: Positive: Nl turgor and temperature, Other skin issue (appears to have injection garzon on B arms, covered by makeup/foundation), Negative: Rash Neuro Exam: Positive: Normal Gait, Normal Speech Psych Exam: Positive: Mental status NL, Mood NL, Oriented x 3 Assessment /Plan Problems (1) Discitis Status: Acute Problem Text: 02/20 - ID recommended PICC (to be placed today), 6 w IV Cefazolin q8h. She hasn't completed intake at [facility] Addiction services. She plans to go home to her mother's home for duration of her IV abx. JFW: having intractable low back pain 05/28. No response to acetomen, restarted percocet 02/19 Mana consulted-PICC to be placed for 6W cefazolin-plan to live with mother for duration of therapy-obvious risk of misuse of CVC (last IV drug per SO ~4M prior)-previously established c outpatient drug rehab-consult PFS to re- establish with them at d/c 02/17 - MRI with contrast done 02/12/[address] Hernández showed disciitis osteomyelitis at L3-L4 level with mild thecal sac compression. Inflammatory markers are normal (WBCs, ESR, CRP); per Dr. Adair, propionibacterium acnes can cause disciitis without significant inflammation, and appropriate treatment is being given with IV rocephin. 02/16/17 L3/4 disc biopsy culture 2/2 MSSA + (same organism as 's endocarditis) (2) Anxiety Status: Chronic Response to Treatment: Stable Problem Text: Continue home cymbalta and trazodone QHS. (3) HTN (hypertension) Status: Chronic Problem Text: 02/18 - BP has remained at goal. 02/17 - BP elevated upon manual recheck today. Patient states she was previously on triamterene-HCTZ (dose unknown) but this was stopped due to low BP. Will continue to monitor. (4) History of substance use Status: Chronic Response to Treatment: Stable Problem Text: Patient last used marijuana 11/2016 and cocaine in 2012; denies h/ o IV drug use. Toxicology ordered by Dr. Hernández - results are pending. (5) Hepatitis C antibody positive in blood Status: Acute Problem Text: Per outpatient notes, patient's uses IV heroin and also tested positive for Hep C. Plan/VTE VTE Prophylaxis Ordered?: Yes (lovenox) VS, I&O, 24H, Fishbone Vital Signs/I&O Vital Signs Date Time Temp Pulse Resp B/P Pulse Ox O2 Delivery O2 Flow Rate FiO2 02/20/17 06:00 98.4 63 18 117/69 96 Room Air I&O- Last 24 Hours up to 6 AM 02/20/17 06:00 Intake Total 840 ml Output Total 150 ml Balance 690 ml Laboratory Data 24H LABS Laboratory Tests 2 02/19/17 12:54: Vancomycin Level Trough 12.2 Microbiology Microbiology 02/16/17 Blood Culture - Preliminary, Resulted No Growth after 72 hours. All specime... 02/16/17 Anaerobic Culture - Final, Complete 02/16/17 Gram Stain - Final, Complete 02/16/17 Body Fluid Culture - Final, Complete Staphylococcus Aureus 02/16/17 Acid Fast Stain, Received Pending 02/16/17 Mycobacterial Culture, Received Pending 02/16/17 Gram Stain - Final, Complete 02/16/17 Surgical Biopsy Culture - Final, Complete Staphylococcus Aureus LUCIAN WHITTAKER PA-C Feb 20, 2017 11:07 Dell Hernandez MD Feb 20, 2017 14:12
[2017-02-20] MEDS: ACETAMINOPHEN 500 MG TAB PO PRN (12:01)
[2017-02-20] MEDS: ENOXAPARIN 30 MG/0.3 ML SYR (J1650) SC SCH (12:02)
--- NOTE | 2017-02-20 13:30 | REP ---
PICC line insertion: History: Infectious discitis. Antibiotic therapy. IV access. Procedure: The patient was interviewed and informed consent was obtained. Preliminary sonography of the right arm identified a suitable basilic vein in the right upper extremity and this area was marked on the skin. The patient was placed on the angiography table and the right arm area was prepped and draped in the usual fashion. After patient safety time-out was articulated and agreed to, real time sonography was deployed to perform a micropuncture into the right basilic vein. This was accomplished without technical difficulty. A 39 cm single lumen 4.5 Hungarian PICC line was installed with its tip positioned under fluoroscopy in the superior vena cava. The catheter was affixed to the skin with an OpSite dressing. The catheter lumen was flushed with heparinized saline and heparin per hospital protocol. The patient tolerated the procedure well. Impression: Single lumen right basilic vein PICC line insertion. Fluoroscopy time was 0.1 minutes. Signed by Lucas Givens MD 02/20/2017 06:05 P
[2017-02-20 14:00] VITALS: BP 125/69
[2017-02-20] MEDS: PERCOCET 5MG/325MG TAB PO PRN ×2 (14:22→19:24)
[2017-02-20] MEDS: SODIUM CHLORIDE 0.9% INJ 10 ML SYR IV SCH (17:42)
[2017-02-20] MEDS: traZODone 100 MG TAB PO SCH (20:01)
--- NOTE | 2017-02-20 21:19 | IPN ---
DATE: 02/20/2017 The patient is doing better today. She states her back pain has improved. She is able to ambulate. She still cannot bend over but feels better. LABORATORY DATA: White count is 5.4, hemoglobin 10.5, hematocrit 32.9, platelets 287. Sodium 141, potassium 3.7, chloride 106, bicarbonate 28, BUN 13, creatinine 0.5, glucose 113, calcium 7.8. Disc space cultures are positive for MSSA. AFB cultures are pending. Anaerobic cultures are negative. PHYSICAL EXAMINATION: Temperature is 99, pulse 75, respirations 19, blood pressure 125/69, oxygen saturation 92% on room air. HEART: Normal S1, S2. No murmurs, rubs, or gallops. LUNGS: Clear. No wheezes, rales, or rhonchi. ABDOMEN: Soft, nontender. No hepatosplenomegaly. EXTREMITIES: No clubbing, cyanosis or edema. She has really good strength bilateral lower extremities 5/5. Negative straight leg raising. She moves in bed very appropriately and without complaints. BACK: Has mild lumbosacral tenderness L4-L5. IMPRESSION: 1. Discitis due to methicillin-sensitive Staphylococcus aureus (MSSA), most likely got infected about 4 months ago when she developed acute back pain and was seen on multiple occasions in the emergency room (ER) but was only managed conservatively. At this point the patient has vertebral osteomyelitis at L3-L4. She will need treatment with 6 weeks of IV antibiotics. The patient has tolerated cephazolin 2 grams every 8 hours with no allergic reaction. 2. History of IV drug use and addiction. I have discussed the case with patient and family services (PFS), Daljit Garcia, as well as Beti Pastor, who knows the patient from previous hospitalization of her who had endocarditis about 4 months ago and there was a big concern about her going home with a peripherally inserted central catheter (PICC) line. 3. Chronic hepatitis C, has not been treated yet. PLAN: Will discuss with her counselor as an outpatient, Jeana, was has seen her as an outpatient, to see if we can do an intensive outpatient one-on-one and whether it would be safe for her to go home. Her mother is a nurse and she could go home to her mother but also there is a concern of that safety as well. At this point the patient is to cephazolin 2 grams IV every 8 hours and will decide on home IV antibiotic after all involved in her discharge planning are on the same page. Will recheck sedimentation rate and C-reactive protein (CRP) in the morning.
[2017-02-20 22:00] VITALS: BP 126/78
[2017-02-21] MEDS: PERCOCET 5MG/325MG TAB PO PRN ×3 (05:06→20:03)
[2017-02-21] MEDS: SODIUM CHLORIDE 0.9% INJ 10 ML SYR IV SCH ×2 (05:06→17:39)
[2017-02-21 05:22] LABS: MEAN CORPUSCULAR HEMOGLOBIN 28.1 pg (27.0-33.0); MEAN CORPUSCULAR HGB CONC 32.2 g/dl (32.0-36.5); MEAN CORPUSCULAR VOLUME 87.3 fl (80.0-96.0); RED CELL DISTRIBUTION WIDTH 13.8 % (11.5-14.5); WHITE BLOOD COUNT 5.3 K/mm3 (4.0-10.0)
[2017-02-21 05:57] LABS: FERRITIN 9 NG/ML (8-252); PERCENT SATURATION 4.5 % (13.2-37.4); TOTAL IRON BINDING CAPACITY 374 UG/DL (250-450)
[2017-02-21] MEDS: DULoxetine 30 MG CAP (CYMBALTA) PO SCH (08:56)
[2017-02-21] MEDS: SENOKOT S TAB PO SCH ×2 (08:57→20:00)
[2017-02-21] MEDS: ENOXAPARIN 30 MG/0.3 ML SYR (J1650) SC SCH (08:57)
[2017-02-21 10:15] LABS: ACETAMINOPHEN Negative ug/mL (10-30); AMITRIPTYLINE None Detected (Not Estab.); BUTALBITAL None Detected ug/mL (1-10); DESIPRAMINE None Detected (Not Estab.); DIAZEPAM None Detected ug/mL (0.1-0.9); DOXEPIN None Detected (Not Estab.); ETHANOL Negative % (0.000-0.010); NORCHLORDIAZEPOXIDE None Detected ug/mL (0.1-0.6); NORDIAZEPAM None Detected ug/mL (0.1-1.4); NORDOXEPIN None Detected (Not Estab.); NORTRIPTYLINE None Detected ng/mL (50-150); PENTOBARBITAL None Detected ug/mL (1-5); PHENOBARBITAL None Detected ug/mL (15-40); PHENYTOIN None Detected ug/mL (10.0-20.0)
[2017-02-21] MEDS: SODIUM CHLORIDE 0.9% INJ 10 ML SYR IV PRN (10:16)
[2017-02-21 14:00] VITALS: BP 141/80
--- NOTE | 2017-02-21 14:27 | IPN ---
DATE: 02/21/2017 Ashwini is doing well. No fevers. Walking with her back brace on. On physical exam, afebrile. Vital signs stable. Lungs clear. Heart regular rhythm. Abdomen soft. Has a back brace on. LABS: CBC is unchanged. Sed rate is 10. Iron studies show a borderline iron deficiency. TIBC upper limits of normal. Ferritin lower limits of normal. Transferrin low. IMPRESSION: 1. Methicillin Staphylococcus aures discitis. She is on Ancef 2 grams IV every 8 hours with plan for six weeks of this per patient and confirmed by nurses. Plan is for discharge on Sunday of next week, 02/27/2017. 2. Chronic hepatitis C, not yet treated. Needs outpatient followup. 3. Mild iron deficiency anemia. Start some oral iron. 4. Chronic back pain. She is on Cymbalta 60 mg daily, Desyrel 100 mg at bedtime and Percocet as needed. 5. History of drug abuse. She has been abstinent apparently for several years and has good support at home.
[2017-02-21 14:39] LABS: FOLATE 9.3 NG/ML (>5.4); VITAMIN B12 LEVEL 178 PG/ML (247-911)
[2017-02-21] MEDS: FERROUS SULFATE 325MG TAB PO SCH ×2 (14:40→20:00)
--- NOTE | 2017-02-21 16:57 | IPN ---
DATE: 02/21/2017 Mrs. Cardona seems to be doing better today. She walked five times around the nurses' station. Her back pain is slightly better. She states she still has a hard time bending over. Maximum temperature (Tmax) today was 99.7, pulse 91, respirations 18, blood pressure 141/80, oxygen saturation 95% on room air. She has mild lumbosacral tenderness. LABORATORY DATA: White count 5.3, hemoglobin 10.6, hematocrit 32.9, platelets 273, ESR is 10, sodium 141, potassium 3.7, chloride 106, bicarbonate 28, BUN 13, creatinine 0.5, glucose 113, calcium 7.8, iron 17, TIBC 374, iron saturation 4.5, CRP less than 0.3, vitamin B12 178, folate 9.3. Blood culture negative. Disc space culture positive for methicillin-sensitive Staphylococcus aureus (MSSA). IMPRESSION: 1. Methicillin-sensitive Staphylococcus aureus (MSSA) discitis. On IV cefazolin 2 grams every 8 hours. Patient is doing very well, tolerating it in spite of penicillin allergy. 2. Iron deficiency anemia. Patient was started on iron supplement 325 twice a day. 3. History of IV drug addiction, especially Soledad and crystal methamphetamine. Patient states that she has not used in over 4 months. She understands the risk of going home with a peripherally inserted central catheter (PICC) line. I have called the behavioral health clinic for addiction and talked to Sophy Solis who will make sure the patient has an appointment to be seen for outpatient addiction, she used to see Bisi, and an appointment will be made. Patient cannot do group at this point. She was supposed to be in group therapy 3 hours a day 3 days a week, but she was not able to tolerate sitting for 3 hours due to discitis and severe low back pain. She will be reinstated for 1 hour or more on one-on-one until she is able to do group therapy at a later date. She will be on IV antibiotics for 6 weeks. Following that, she will be able to do group therapy. PLAN: The patient has agreed on that plan with addiction clinic. Will make a referral to addiction clinic and fax it to Sophy Solis. I did discuss the case with Daljit Garcia who will arrange for that appointment. Patient's plan is to be discharged home on Sunday with cefazolin 2 grams IV every 8 hours.
[2017-02-21] MEDS: traZODone 100 MG TAB PO SCH (20:00)
[2017-02-21 22:00] VITALS: BP 125/75
[2017-02-22] MEDS: SODIUM CHLORIDE 0.9% INJ 10 ML SYR IV PRN (00:33)
[2017-02-22] MEDS: PERCOCET 5MG/325MG TAB PO PRN ×5 (04:34→22:10)
[2017-02-22] MEDS: SODIUM CHLORIDE 0.9% INJ 10 ML SYR IV SCH ×2 (05:10→17:43)
[2017-02-22 05:27] LABS: BASO % 0.6 % (0.0-1.0); EOS # 0.2 K/mm3 (0.0-0.50); EOS % 3.4 % (0.0-3.0); LARGE UNSTAINED CELL # 0.1 K/mm3 (0.0-0.4); LARGE UNSTAINED CELL % 2.3 % (0.0-4.0); LYMPH % 38.5 % (24.0-44.0); MEAN CORPUSCULAR HEMOGLOBIN 27.3 pg (27.0-33.0); MEAN CORPUSCULAR HGB CONC 31.6 g/dl (32.0-36.5); MEAN CORPUSCULAR VOLUME 86.2 fl (80.0-96.0); MONO # 0.3 K/mm3 (0.0-0.8); MONO % 6.9 % (0.0-5.0); NEUTROPHILS # 2.4 K/mm3 (1.8-7.7); NEUTROPHILS % 48.3 % (36.0-66.0); PLATELET COUNT, AUTOMATED 268 k/mm3 (150-450); RED CELL DISTRIBUTION WIDTH 13.8 % (11.5-14.5); WHITE BLOOD COUNT 4.9 K/mm3 (4.0-10.0)
[2017-02-22 06:00] VITALS: BP 111/62
--- NOTE | 2017-02-22 09:54 | IPNPDOC ---
Subjective Date Seen The patient was seen on 02/22/17. Subjective Chief Complaint/HPI Pt c/o pain from her R hip into the back/side of her R upper leg. She denies other concerns. Back pain persists. General: Denies: Fatigue Constitutional: Denies: Chills, Fever Pulmonary: Denies: Cough, Dyspnea Cardiovascular: Denies: Chest Pain, Palpitations Gastrointestinal: Denies: Diarrhea, Nausea, Vomiting Musculoskeletal: Reports: Back Pain Psych: Reports: Mood Normal Objective Physical Examination General Exam: Positive: Alert, No Acute Distress ENT Exam: Positive: Mucous membr. moist/pink Chest Exam: Positive: Clear to auscultation, Normal air movement Heart Exam: Positive: Normal S1, Normal S2, Rate Normal, Regular Rhythm, Negative: Murmurs Abdomen Exam: Positive: Normal bowel sounds, Soft, Negative: Tenderness Extremity Exam: Negative: Edema Skin Exam: Positive: Nl turgor and temperature, Other skin issue (appears to have injection garzon on B arms, covered by makeup/foundation), Negative: Rash Neuro Exam: Positive: Normal Gait, Normal Speech Psych Exam: Positive: Mental status NL, Mood NL, Oriented x 3 Assessment /Plan Problems (1) Discitis Status: Acute Problem Text: 02/21 - ID has prepared pt for [facility] d/c, she is set up for outpt addiction services, plans for d/c to her mother's home. I think this is the best possible scenario for d/c for a pt with a h/o IV drug use who needs prison abx. 02/20 - ID recommended PICC (to be placed today), 6 w IV Cefazolin q8h. She hasn' t completed intake at [facility] Addiction services. She plans to go home to her mother's home for duration of her IV abx. JFW: having intractable low back pain 05/28. No response to acetomen, restarted percocet 02/19 Mana consulted-PICC to be placed for 6W cefazolin-plan to live with mother for duration of therapy-obvious risk of misuse of CVC (last IV drug per SO ~4M prior)-previously established c outpatient drug rehab-consult PFS to re- establish with them at d/c 02/17 - MRI with contrast done 02/12/[address] Hernández showed disciitis osteomyelitis at L3-L4 level with mild thecal sac compression. Inflammatory markers are normal (WBCs, ESR, CRP); per Dr. Adair, propionibacterium acnes can cause disciitis without significant inflammation, and appropriate treatment is being given with IV rocephin. 02/16/17 L3/4 disc biopsy culture 2/2 MSSA + (same organism as 's endocarditis) (2) Anxiety Status: Chronic Response to Treatment: Stable Problem Text: Continue home cymbalta and trazodone QHS. (3) HTN (hypertension) Status: Chronic Problem Text: 02/18 - BP has remained at goal. 02/17 - BP elevated upon manual recheck today. Patient states she was previously on triamterene-HCTZ (dose unknown) but this was stopped due to low BP. Will continue to monitor. (4) History of substance use Status: Chronic Response to Treatment: Stable Problem Text: Patient last used marijuana 11/2016 and cocaine in 2012; denies h/ o IV drug use. Toxicology ordered by Dr. Hernández - results are pending. (5) Hepatitis C antibody positive in blood Status: Acute Problem Text: Per outpatient notes, patient's uses IV heroin and also tested positive for Hep C. Plan/VTE VTE Prophylaxis Ordered?: Yes (lovenox) VS, I&O, 24H, Fishbone Vital Signs/I&O Vital Signs Date Time Temp Pulse Resp B/P Pulse Ox O2 Delivery O2 Flow Rate FiO2 02/22/17 06:00 98.3 86 18 111/62 94 Room Air I&O- Last 24 Hours up to 6 AM 02/22/17 06:00 Intake Total 1230 ml Output Total 1200 ml Balance 30 ml Laboratory Data 24H LABS Laboratory Tests 2 02/22/17 05:13: White Blood Count 4.9, Red Blood Count 3.87L, Hemoglobin 10.6L, Hematocrit 33.4L , Mean Corpuscular Volume 86.2, Mean Corpuscular Hemoglobin 27.3, Mean Corpuscular Hemoglobin Concent 31.6L, Red Cell Distribution Width 13.8, Platelet Count 268, Neutrophils (%) (Auto) 48.3, Lymphocytes (%) (Auto) 38.5, Monocytes (%) (Auto) 6.9H, Eosinophils (%) (Auto) 3.4H, Basophils (%) (Auto) 0.6 , Neutrophils # (Auto) 2.4, Lymphocytes # (Auto) 2.0, Monocytes # (Auto) 0.3, Eosinophils # (Auto) 0.2, Basophils # (Auto) 0.0, Large Unclassified Cells # 0.1 , Large Unclassified Cells % 2.3 CBC/BMP Laboratory Tests 02/22/17 05:13 Red Blood Count 3.87 L, Mean Corpuscular Volume 86.2, Mean Corpuscular Hemoglobin 27.3, Mean Corpuscular Hemoglobin Concent 31.6 L, Red Cell Distribution Width 13.8, Neutrophils (%) (Auto) 48.3, Lymphocytes (%) (Auto) 38.5, Monocytes (%) (Auto) 6.9 H, Eosinophils (%) (Auto) 3.4 H, Basophils (%) ( Auto) 0.6, Neutrophils # (Auto) 2.4, Lymphocytes # (Auto) 2.0, Monocytes # (Auto ) 0.3, Eosinophils # (Auto) 0.2, Basophils # (Auto) 0.0 Microbiology Microbiology 02/16/17 Blood Culture - Final, Complete NO GROWTH AFTER 5 DAYS 02/16/17 Anaerobic Culture - Final, Complete 02/16/17 Gram Stain - Final, Complete 02/16/17 Body Fluid Culture - Final, Complete Staphylococcus Aureus 02/16/17 Acid Fast Stain, Received Pending 02/16/17 Mycobacterial Culture, Received Pending 02/16/17 Gram Stain - Final, Complete 02/16/17 Surgical Biopsy Culture - Final, Complete Staphylococcus Aureus LUCIAN WHITTAKER PA-C Feb 22, 2017 09:54
[2017-02-22] MEDS: DULoxetine 30 MG CAP (CYMBALTA) PO SCH (10:04)
[2017-02-22] MEDS: SENOKOT S TAB PO SCH ×2 (10:04→20:48)
[2017-02-22] MEDS: FERROUS SULFATE 325MG TAB PO SCH ×2 (10:05→20:48)
[2017-02-22] MEDS: ENOXAPARIN 30 MG/0.3 ML SYR (J1650) SC SCH (10:05)
[2017-02-22 14:00] VITALS: BP 132/87
--- NOTE | 2017-02-22 18:40 | IPN ---
DATE: 02/22/2017 Ashwini is doing much better. She states she has been walking a lot but she does have some more pain in her hip. She denies any fever or chills. No nausea, vomiting or diarrhea and no abdominal pain. No rashes or allergic reaction to cephazolin. PHYSICAL EXAMINATION: On physical exam vital signs are stable. HEART: Normal S1-S2. No murmurs, rubs or gallops. LUNGS: Are clear. No wheezes or rhonchi. ABDOMEN: Is soft, nontender. No visceromegaly. BACK: Mild lumbosacral tenderness L2-L4. Straight leg raising is positive on both sides at about 50 degrees but motor strength is great. NEUROLOGIC: EXAM: Is intact. IMPRESSION: 1. Methicillin-susceptible Staphylococcus aureus diskitis at L3-L4, on IV cephazolin, doing very well. She will receive 6 weeks of IV antibiotics. Her sed rate and CRP have been normal, which is very unusual. Back pain has markedly improved. 2. History of IV drug addiction including crystal meth, [place]. There is concern about her going home with a PICC line. We have talked to behavioral health addiction services, they will reschedule her to be seen as soon as possible as an outpatient. The patient will not be able to do group sessions for 3 hours a day, 3 days a week due to the fact that she cannot sit down with severe back pain, but once her back pain has improved this will be reinstated. 3. Chronic hepatitis C. She has an appointment to follow up as an outpatient for treatment with Dr. Adair. PLAN; The patient is anticipated to go home on Sunday on IV cephazolin for a total of 6 weeks. End of therapy will be the middle of March. The patient will be monitored with blood work every other week.
[2017-02-22] MEDS: traZODone 100 MG TAB PO SCH (20:48)
[2017-02-22 20:50] VITALS: BP 141/80
[2017-02-23] MEDS: SODIUM CHLORIDE 0.9% INJ 10 ML SYR IV SCH ×2 (01:33→16:21)
[2017-02-23] MEDS: PERCOCET 5MG/325MG TAB PO PRN (02:29)
[2017-02-23 05:35] VITALS: BP 123/72
[2017-02-23 06:20] LABS: BASO % 0.7 % (0.0-1.0); EOS # 0.2 K/mm3 (0.0-0.50); EOS % 3.6 % (0.0-3.0); LARGE UNSTAINED CELL # 0.1 K/mm3 (0.0-0.4); LARGE UNSTAINED CELL % 2.1 % (0.0-4.0); LYMPH # 2.4 K/mm3 (1.5-4.5); LYMPH % 43.1 % (24.0-44.0); MEAN CORPUSCULAR HEMOGLOBIN 27.8 pg (27.0-33.0); MEAN CORPUSCULAR HGB CONC 31.9 g/dl (32.0-36.5); MEAN CORPUSCULAR VOLUME 87.1 fl (80.0-96.0); MONO # 0.4 K/mm3 (0.0-0.8); MONO % 7.1 % (0.0-5.0); NEUTROPHILS # 2.4 K/mm3 (1.8-7.7); NEUTROPHILS % 43.4 % (36.0-66.0); PLATELET COUNT, AUTOMATED 256 k/mm3 (150-450); RED CELL DISTRIBUTION WIDTH 14.2 % (11.5-14.5); WHITE BLOOD COUNT 5.5 K/mm3 (4.0-10.0)
[2017-02-23] MEDS: ENOXAPARIN 30 MG/0.3 ML SYR (J1650) SC SCH (09:02)
[2017-02-23] MEDS: FERROUS SULFATE 325MG TAB PO SCH ×2 (09:02→20:15)
[2017-02-23] MEDS: DULoxetine 30 MG CAP (CYMBALTA) PO SCH ×2 (09:02→20:15)
[2017-02-23] MEDS: SENOKOT S TAB PO SCH ×2 (09:03→20:15)
[2017-02-23] MEDS ORDERED: PERCOCET 5MG/325MG TAB PO PRN (09:34)
[2017-02-23] MEDS ORDERED: IBUPROFEN 600 MG TAB PO ONE (10:00)
--- NOTE | 2017-02-23 11:06 | IPNPDOC ---
Subjective Date Seen The patient was seen on 02/23/17. Subjective Chief Complaint/HPI The patient is a 47-year-old female admitted with a reason for visit of Osteomyelitis, Discitis. Events since last encounter Pt using percocet every 4 h, more often than she tells when asked. She does move about the room/halls freely, and changes position rapidly. She has no new concerns. General: Denies: Fatigue Constitutional: Denies: Chills, Fever ENT: Denies: Head Aches Pulmonary: Denies: Cough, Dyspnea Cardiovascular: Denies: Chest Pain, Palpitations Gastrointestinal: Denies: Diarrhea, Nausea, Vomiting Musculoskeletal: Reports: Back Pain Psych: Reports: Mood Normal Objective Physical Examination General Exam: Positive: Alert, No Acute Distress ENT Exam: Positive: Mucous membr. moist/pink Chest Exam: Positive: Clear to auscultation, Normal air movement Heart Exam: Positive: Normal S1, Normal S2, Rate Normal, Regular Rhythm, Negative: Murmurs Abdomen Exam: Positive: Normal bowel sounds, Soft, Negative: Tenderness Extremity Exam: Negative: Edema Skin Exam: Positive: Nl turgor and temperature, Other skin issue (appears to have injection garzon on B arms, covered by [employer]/foundation), Negative: Rash Neuro Exam: Positive: Normal Gait, Normal Speech Psych Exam: Positive: Mental status NL, Mood NL, Oriented x 3 Assessment /Plan Problems (1) Discitis Status: Acute Problem Text: 02/23 - Plan for Tues d/c with homecare, IV abx, PFS assisting with coordination of care. Decrease allowable frequency of use of the percocet , IBU added by Dr Adair, I will increased her cymbalta to 60 mg BID. 02/21 - ID has prepared pt for Tues d/c, she is set up for outpt addiction services, plans for d/c to her mother's home. I think this is the best possible scenario for d/c for a pt with a h/o IV drug use who needs mcc abx. 02/20 - ID recommended PICC (to be placed today), 6 w IV Cefazolin q8h. She hasn' t completed intake at [facility] Addiction services. She plans to go home to her mother's home for duration of her IV abx. JFW: having intractable low back pain 05/28. No response to acetomen, restarted percocet 02/19 Mana consulted-PICC to be placed for 6W cefazolin-plan to live with mother for duration of therapy-obvious risk of misuse of CVC (last IV drug per SO ~4M prior)-previously established c outpatient drug rehab-consult PFS to re- establish with them at d/c 02/17 - MRI with contrast done 02/12/[address] Hernández showed disciitis osteomyelitis at L3-L4 level with mild thecal sac compression. Inflammatory markers are normal (WBCs, ESR, CRP); per Dr. Adair, propionibacterium acnes can cause disciitis without significant inflammation, and appropriate treatment is being given with IV rocephin. 02/16/17 L3/4 disc biopsy culture 12/21 MSSA + (same organism as 's endocarditis) (2) Anxiety Status: Chronic Response to Treatment: Stable Problem Text: Continue home cymbalta and trazodone QHS. (3) HTN (hypertension) Status: Chronic Problem Text: 02/18 - BP has remained at goal. 02/17 - BP elevated upon manual recheck today. Patient states she was previously on triamterene-HCTZ (dose unknown) but this was stopped due to low BP. Will continue to monitor. (4) History of substance use Status: Chronic Response to Treatment: Stable Problem Text: Patient last used marijuana 11/2016 and cocaine in 2012; denies h/ o IV drug use. Toxicology ordered by Dr. Hernández - results are pending. (5) Hepatitis C antibody positive in blood Status: Acute Problem Text: Per outpatient notes, patient's uses IV heroin and also tested positive for Hep C. Plan/VTE VTE Prophylaxis Ordered?: Yes (lovenox) VS, I&O, 24H, Fishbone Vital Signs/I&O Vital Signs Date Time Temp Pulse Resp B/P Pulse Ox O2 Delivery O2 Flow Rate FiO2 02/23/17 05:35 98.0 66 17 123/72 92 Room Air I&O- Last 24 Hours up to 6 AM 02/23/17 06:00 Intake Total 1000 ml Output Total 1150 ml Balance -150 ml Laboratory Data 24H LABS Laboratory Tests 2 02/23/17 05:41: White Blood Count 5.5, Red Blood Count 4.09, Hemoglobin 11.4L, Hematocrit 35.6L , Mean Corpuscular Volume 87.1, Mean Corpuscular Hemoglobin 27.8, Mean Corpuscular Hemoglobin Concent 31.9L, Red Cell Distribution Width 14.2, Platelet Count 256, Neutrophils (%) (Auto) 43.4, Lymphocytes (%) (Auto) 43.1, Monocytes (%) (Auto) 7.1H, Eosinophils (%) (Auto) 3.6H, Basophils (%) (Auto) 0.7 , Neutrophils # (Auto) 2.4, Lymphocytes # (Auto) 2.4, Monocytes # (Auto) 0.4, Eosinophils # (Auto) 0.2, Basophils # (Auto) 0.0, Large Unclassified Cells # 0.1 , Large Unclassified Cells % 2.1 CBC/BMP Laboratory Tests 02/23/17 05:41 Red Blood Count 4.09, Mean Corpuscular Volume 87.1, Mean Corpuscular Hemoglobin 27.8, Mean Corpuscular Hemoglobin Concent 31.9 L, Red Cell Distribution Width 14.2, Neutrophils (%) (Auto) 43.4, Lymphocytes (%) (Auto) 43.1, Monocytes (%) ( Auto) 7.1 H, Eosinophils (%) (Auto) 3.6 H, Basophils (%) (Auto) 0.7, Neutrophils # (Auto) 2.4, Lymphocytes # (Auto) 2.4, Monocytes # (Auto) 0.4, Eosinophils # (Auto) 0.2, Basophils # (Auto) 0.0 Microbiology Microbiology 02/16/17 Blood Culture - Final, Complete NO GROWTH AFTER 5 DAYS 02/16/17 Anaerobic Culture - Final, Complete 02/16/17 Gram Stain - Final, Complete 02/16/17 Body Fluid Culture - Final, Complete Staphylococcus Aureus 02/16/17 Acid Fast Stain - Final, Resulted 02/16/17 Mycobacterial Culture, Resulted Pending 02/16/17 Gram Stain - Final, Complete 02/16/17 Surgical Biopsy Culture - Final, Complete Staphylococcus Aureus LUCIAN WHITTAKER PA-C Feb 23, 2017 11:06
--- NOTE | 2017-02-23 12:48 | IPN ---
DATE: 02/23/2017 Time patient was seen was at 9:30 a.m. Patient has been seen and examined at the bedside. No acute events overnight. Patient is feeling better. The patient stated she was taking one pain medication yesterday, however upon chart review, she was taking more than that. Otherwise, the patient denies any chest pain, trouble breathing, abdominal pains, nausea, vomiting, diarrhea or constipation, or any problems with urination. Denies any other current new complaints. The patient continues to complain of some back pain and also some hip ache. PHYSICAL EXAMINATION: VITAL SIGNS: Temperature 98, pulse 66, respirations 17, blood pressure 123/72, oxygen saturation 92% on room air. GENERAL: Patient is a middle aged female who looks older than her age. She was awake, alert and oriented times three. Does not appear to be in distress, lying comfortably in bed with head elevated at 45 degrees. HEENT: Normocephalic, atraumatic. Extraocular motor intact. Mucous moist. NECK: Supple. No neck lymphadenopathy. CARDIOVASCULAR: Regular rate and rhythm. S1 and S2, no murmurs, rubs or gallops. LUNGS: Clear to auscultation bilaterally. No wheezing, rales or rhonchi. ABDOMEN: Positive bowel sounds. Soft, nontender, nondistended. No peritoneal signs. No ecchymoses. EXTREMITIES: No edema, clubbing or cyanosis. SKIN: Warm and dry. NEURO: Cranial nerves II through XII intact. No focal neurologic deficit. LABORATORIES: WBC 5.5, hemoglobin 11.4, hematocrit 35.6 with a platelet count of 256 and MCV of 87. Sodium 141, potassium 3.7, chloride 106, bicarb 28, anion gap was 7, BUN 13, creatinine 0.52, GFR greater than 60, fasting glucose 113, calcium 7.8, iron 17, TIBC 374, transferrin percentage was only 4.5% with a ferritin of 9, CRP was less than 0.3. Vitamin B12 178, folate 9.3. It was from two days and there is no new basic metabolic panel from today. There is no new culture. 1. Methicillin-susceptible Staphylococcus aureus (MSSA) discitis at L3-L4 on IV cefazolin 2 grams IV every 8 hours, day number 5. CRP continues to be normal. Back pain has improved. 2. History of IV drug addiction, including crystal meth and kanchan. There is a concern for the patient to go home with a PICC line due to her history of addiction. Patient and family services (PFS) has been consulted to coordinate her care. The patient will likely be discharged to the patient's mother's home and followup with outpatient addiction service. In addition, the patient will not be able to do group session for three hours a day three days a week, due to she cannot sit down with severe back pain, but when the back has improved she will be able to reinstate. 3. Chronic hepatitis C. The patient has an appointment to followup as an outpatient with Dr. Adair. PLAN: Patient is anticipated to go home possibly next Sunday on IV cefazolin 2 grams every 8 hours for a total of six weeks. The end of therapy will be the middle of March. The patient will be monitored with blood work every other week. The patient has been discussed with attending doctor, Dr. Adair. My preceptor for this patient encounter was Dr. Patt Adair. The preceptor was physically present in the building during the encounter and was fully available. As needed, all aspects of the patient interview, examination, medical decision making process, and medical care plan development were reviewed and approved by the preceptor. The preceptor is aware and concurs with the plan as stated in the body of this note and will attest to such by his/her cosignature.
[2017-02-23 14:00] VITALS: BP 133/68
[2017-02-23] MEDS: traZODone 100 MG TAB PO SCH (20:15)
[2017-02-23 22:00] VITALS: BP 142/88
[2017-02-23] MEDS ORDERED: IBUPROFEN 600 MG TAB PO SCH (22:00)
[2017-02-24] MEDS: ACETAMINOPHEN 500 MG TAB PO PRN ×2 (03:40→16:31)
[2017-02-24] MEDS: SODIUM CHLORIDE 0.9% INJ 10 ML SYR IV SCH ×2 (05:10→16:31)
[2017-02-24 05:31] LABS: BASO % 0.4 % (0.0-1.0); EOS % 0.4 % (0.0-3.0); LARGE UNSTAINED CELL # 0.1 K/mm3 (0.0-0.4); LARGE UNSTAINED CELL % 1.5 % (0.0-4.0); LYMPH # 1.8 K/mm3 (1.5-4.5); MEAN CORPUSCULAR HEMOGLOBIN 27.4 pg (27.0-33.0); MEAN CORPUSCULAR HGB CONC 31.7 g/dl (32.0-36.5); MEAN CORPUSCULAR VOLUME 86.4 fl (80.0-96.0); MONO # 0.5 K/mm3 (0.0-0.8); MONO % 4.9 % (0.0-5.0); NEUTROPHILS # 7.3 K/mm3 (1.8-7.7); NEUTROPHILS % 74.7 % (36.0-66.0); PLATELET COUNT, AUTOMATED 319 k/mm3 (150-450); RED CELL DISTRIBUTION WIDTH 13.9 % (11.5-14.5); WHITE BLOOD COUNT 9.8 K/mm3 (4.0-10.0)
[2017-02-24 06:50] VITALS: BP 155/85
[2017-02-24] MEDS ORDERED: LISINOPRIL 5 MG TAB PO SCH (09:00)
[2017-02-24] MEDS: FERROUS SULFATE 325MG TAB PO SCH ×2 (09:47→21:42)
[2017-02-24] MEDS: ENOXAPARIN 30 MG/0.3 ML SYR (J1650) SC SCH (09:48)
[2017-02-24] MEDS: DULoxetine 30 MG CAP (CYMBALTA) PO SCH ×2 (09:48→21:43)
[2017-02-24] MEDS: SENOKOT S TAB PO SCH ×2 (09:48→21:43)
[2017-02-24 14:00] VITALS: BP 165/90
--- NOTE | 2017-02-24 17:08 | IPNPDOC ---
Subjective Date Seen The patient was seen on 02/24/17. Subjective Chief Complaint/HPI The patient is a 47-year-old female admitted with a reason for visit of Osteomyelitis, Discitis. Events since last encounter Patient reports uncontrolled pain, and wishes to have additional help with pain management of her low back. She denies any fevers, chills, sweats. Constitutional: Denies: Chills, Fever, Malaise ENT: Denies: Head Aches Skin: Denies: Rash Pulmonary: Denies: Cough, Dyspnea Cardiovascular: Denies: Chest Pain, Orthopnea, Palpitations Gastrointestinal: Denies: Abdominal Pain, Constipation, Diarrhea, Nausea, Vomiting Genitourinary: Denies: Dysuria, Frequency Musculoskeletal: Reports: Back Pain Other systems 10 point review systems otherwise negative Objective Physical Examination General Exam: Positive: Alert, No Acute Distress ENT Exam: Positive: Mucous membr. moist/pink Chest Exam: Positive: Clear to auscultation, Normal air movement Heart Exam: Positive: Normal S1, Normal S2, Rate Normal, Regular Rhythm, Negative: Murmurs Abdomen Exam: Positive: Normal bowel sounds, Soft, Negative: Tenderness Extremity Exam: Negative: Edema Skin Exam: Positive: Nl turgor and temperature, Other skin issue (appears to have injection garzon on B arms, covered by makeup/foundation), Negative: Rash Neuro Exam: Positive: Normal Gait, Normal Speech Psych Exam: Positive: Mental status NL, Mood NL, Oriented x 3 Assessment /Plan Problems (1) Discitis Status: Acute Problem Text: History of drug abuse. PICC line placed with plan for cefazolin every 8 hours for 6 weeks. Plan for Tues d/c with homecare, IV abx, PFS assisting with coordination of care. She will need follow-up with [facility] addiction services. She has a history of misuse of her central venous catheter after previous admission per note. Currently admitted for discitis, and osteomyelitis at L3-L4. Disc biopsy culture is 2/2 MSSA positive. also has history of MSSA endocarditis. -Cymbalta 60 mg twice a day -Percocet (2) Anxiety Status: Chronic Response to Treatment: Stable Problem Text: Cymbalta escalated to 60 twice a day (3) HTN (hypertension) Status: Chronic Problem Text: Blood pressure was previously low, and patient's home triamterene Hydrocort thiazide was stopped. These have slowly been creeping up. - Start lisinopril 5 mg daily (4) History of substance use Status: Chronic Response to Treatment: Stable Problem Text: Patient last used marijuana 11/2016 and cocaine in 2012; denies h/ o IV drug use. 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 (5) Hepatitis C antibody positive in blood Status: Acute Problem Text: Per outpatient notes, patient's uses IV heroin and also tested positive for Hep C. Plan/VTE VTE Prophylaxis Ordered?: Yes (lovenox) VS, I&O, 24H, Fishbone Vital Signs/I&O Vital Signs Date Time Temp Pulse Resp B/P Pulse Ox O2 Delivery O2 Flow Rate FiO2 02/24/17 06:50 98.2 100 17 155/85 99 Room Air I&O- Last 24 Hours up to 6 AM 02/24/17 06:00 Intake Total 1010 ml Output Total 1600 ml Balance -590 ml Laboratory Data 24H LABS Laboratory Tests 2 02/24/17 05:09: White Blood Count 9.8, Red Blood Count 4.29, Hemoglobin 11.7L, Hematocrit 37.0, Mean Corpuscular Volume 86.4, Mean Corpuscular Hemoglobin 27.4, Mean Corpuscular Hemoglobin Concent 31.7L, Red Cell Distribution Width 13.9, Platelet Count 319, Neutrophils (%) (Auto) 74.7H, Lymphocytes (%) (Auto) 18.0L, Monocytes (%) (Auto) 4.9, Eosinophils (%) (Auto) 0.4, Basophils (%) (Auto) 0.4, Neutrophils # (Auto) 7.3, Lymphocytes # (Auto) 1.8, Monocytes # (Auto) 0.5, Eosinophils # (Auto) 0.0, Basophils # (Auto) 0.0, Large Unclassified Cells # 0.1 , Large Unclassified Cells % 1.5 CBC/BMP Laboratory Tests 02/24/17 05:09 Red Blood Count 4.29, Mean Corpuscular Volume 86.4, Mean Corpuscular Hemoglobin 27.4, Mean Corpuscular Hemoglobin Concent 31.7 L, Red Cell Distribution Width 13.9, Neutrophils (%) (Auto) 74.7 H, Lymphocytes (%) (Auto) 18.0 L, Monocytes (% ) (Auto) 4.9, Eosinophils (%) (Auto) 0.4, Basophils (%) (Auto) 0.4, Neutrophils # (Auto) 7.3, Lymphocytes # (Auto) 1.8, Monocytes # (Auto) 0.5, Eosinophils # ( Auto) 0.0, Basophils # (Auto) 0.0 Microbiology Microbiology 02/16/17 Blood Culture - Final, Complete NO GROWTH AFTER 5 DAYS 02/16/17 Anaerobic Culture - Final, Complete 02/16/17 Gram Stain - Final, Complete 02/16/17 Body Fluid Culture - Final, Complete Staphylococcus Aureus 02/16/17 Acid Fast Stain - Final, Resulted 02/16/17 Mycobacterial Culture, Resulted Pending 02/16/17 Gram Stain - Final, Complete 02/16/17 Surgical Biopsy Culture - Final, Complete Staphylococcus Aureus AKANKSHA CROWELL MD Feb 24, 2017 17:08
[2017-02-24 20:40] VITALS: BP 157/90
[2017-02-24] MEDS: traZODone 100 MG TAB PO SCH (21:42)
[2017-02-25] MEDS: SODIUM CHLORIDE 0.9% INJ 10 ML SYR IV SCH ×2 (05:30→17:01)
[2017-02-25 05:40] VITALS: BP 101/58
[2017-02-25 05:51] LABS: BASO % 0.6 % (0.0-1.0); EOS # 0.1 K/mm3 (0.0-0.50); EOS % 1.9 % (0.0-3.0); LARGE UNSTAINED CELL # 0.1 K/mm3 (0.0-0.4); LARGE UNSTAINED CELL % 1.9 % (0.0-4.0); MEAN CORPUSCULAR HEMOGLOBIN 27.3 pg (27.0-33.0); MEAN CORPUSCULAR HGB CONC 31.6 g/dl (32.0-36.5); MEAN CORPUSCULAR VOLUME 86.5 fl (80.0-96.0); MONO # 0.6 K/mm3 (0.0-0.8); MONO % 8.1 % (0.0-5.0); NEUTROPHILS # 4.3 K/mm3 (1.8-7.7); NEUTROPHILS % 61.5 % (36.0-66.0); PLATELET COUNT, AUTOMATED 327 k/mm3 (150-450); RED CELL DISTRIBUTION WIDTH 14.2 % (11.5-14.5)
[2017-02-25] MEDS: ACETAMINOPHEN 500 MG TAB PO PRN ×2 (06:11→20:54)
--- NOTE | 2017-02-25 06:13 | IPNPDOC ---
Subjective Date Seen The patient was seen on 02/25/17. Subjective Chief Complaint/HPI The patient is a 47-year-old female admitted with a reason for visit of Osteomyelitis, Discitis. Events since last encounter No complaints or concerns today. Patient states her pain is well-controlled. She is having some difficulty with constipation, however states that her bowel regimen has been effective. Patient states that she has set up for in-home counseling with substance abuse center. She has plan to follow up with Dr. Adair for hepatitis C after discharge. Constitutional: Denies: Chills, Fever, Malaise ENT: Denies: Head Aches Skin: Denies: Rash Pulmonary: Denies: Cough, Dyspnea Cardiovascular: Denies: Chest Pain, Orthopnea, Palpitations Gastrointestinal: Reports: Constipation, Denies: Abdominal Pain, Diarrhea, Nausea, Vomiting Genitourinary: Denies: Dysuria Musculoskeletal: Reports: Back Pain Psych: Reports: Mood Normal Other systems 10 point review systems is otherwise negative Objective Physical Examination General Exam: Positive: Alert, No Acute Distress ENT Exam: Positive: Mucous membr. moist/pink Chest Exam: Positive: Clear to auscultation, Normal air movement Heart Exam: Positive: Normal S1, Normal S2, Rate Normal, Regular Rhythm, Negative: Murmurs Abdomen Exam: Positive: Normal bowel sounds, Soft, Negative: Tenderness Extremity Exam: Negative: Edema Skin Exam: Positive: Nl turgor and temperature, Other skin issue (appears to have injection garzon on B arms, covered by makeup/foundation), Negative: Rash Neuro Exam: Positive: Normal Gait, Normal Speech Psych Exam: Positive: Mental status NL, Mood NL, Oriented x 3 Assessment /Plan Problems (1) Discitis Status: Acute Problem Text: History of drug abuse. PICC line placed with plan for cefazolin every 8 hours for 6 weeks. Plan for d/c with homecare, IV abx, PFS assisting with coordination of care. She will need follow-up with [facility] addiction services. She has a history of misuse of her central venous catheter after previous admission per note. Currently admitted for discitis, and osteomyelitis at L3-L4. Disc biopsy culture is 2/2 MSSA positive. also has history of MSSA endocarditis. -Cymbalta 60 mg twice a day -Percocet -Discharge plan for Sunday on home IV antibiotics (2) Anxiety Status: Chronic Response to Treatment: Stable Problem Text: Cymbalta escalated to 60 twice a day (3) HTN (hypertension) Status: Chronic Problem Text: Blood pressure was previously low, and patient's home triamterene Hydrocort thiazide was stopped. BP cont to be elevated after starting lisinopril. - increase to lisinopril-HCTZ 10-12.5 (4) History of substance use Status: Chronic Response to Treatment: Stable Problem Text: Patient last used marijuana 11/2016 and cocaine in 2012; denies h/ o IV drug use. 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 -Patient plans to follow-up with Dr. Adair for hepatitis C -Patient have in-home substance abuse counseling (5) Hepatitis C antibody positive in blood Status: Acute Problem Text: Per outpatient notes, patient's uses IV heroin and also tested positive for Hep C. - oupt followup with Dr. Adair Plan/VTE VTE Prophylaxis Ordered?: Yes (lovenox) VS, I&O, 24H, Fishbone Vital Signs/I&O Vital Signs Date Time Temp Pulse Resp B/P Pulse Ox O2 Delivery O2 Flow Rate FiO2 02/24/17 20:40 97.3 116 17 157/90 99 Room Air I&O- Last 24 Hours up to 6 AM 02/25/17 05:59 Intake Total 1680 ml Output Total 0 ml Balance 1680 ml Laboratory Data 24H LABS Laboratory Tests 2 02/25/17 05:31: White Blood Count 7.0, Red Blood Count 4.34, Hemoglobin 11.9L, Hematocrit 37.5, Mean Corpuscular Volume 86.5, Mean Corpuscular Hemoglobin 27.3, Mean Corpuscular Hemoglobin Concent 31.6L, Red Cell Distribution Width 14.2, Platelet Count 327, Neutrophils (%) (Auto) 61.5, Lymphocytes (%) (Auto) 26.0, Monocytes (%) (Auto) 8.1H, Eosinophils (%) (Auto) 1.9, Basophils (%) (Auto) 0.6 , Neutrophils # (Auto) 4.3, Lymphocytes # (Auto) 2.0, Monocytes # (Auto) 0.6, Eosinophils # (Auto) 0.1, Basophils # (Auto) 0.0, Large Unclassified Cells # 0.1 , Large Unclassified Cells % 1.9 CBC/BMP Laboratory Tests 02/25/17 05:31 Red Blood Count 4.34, Mean Corpuscular Volume 86.5, Mean Corpuscular Hemoglobin 27.3, Mean Corpuscular Hemoglobin Concent 31.6 L, Red Cell Distribution Width 14.2, Neutrophils (%) (Auto) 61.5, Lymphocytes (%) (Auto) 26.0, Monocytes (%) ( Auto) 8.1 H, Eosinophils (%) (Auto) 1.9, Basophils (%) (Auto) 0.6, Neutrophils # (Auto) 4.3, Lymphocytes # (Auto) 2.0, Monocytes # (Auto) 0.6, Eosinophils # ( Auto) 0.1, Basophils # (Auto) 0.0 Microbiology Microbiology 02/16/17 Blood Culture - Final, Complete NO GROWTH AFTER 5 DAYS 02/16/17 Anaerobic Culture - Final, Complete 02/16/17 Gram Stain - Final, Complete 02/16/17 Body Fluid Culture - Final, Complete Staphylococcus Aureus 02/16/17 Acid Fast Stain - Final, Resulted 02/16/17 Mycobacterial Culture, Resulted Pending 02/16/17 Gram Stain - Final, Complete 02/16/17 Surgical Biopsy Culture - Final, Complete Staphylococcus Aureus AKANKSHA CROWELL MD Feb 25, 2017 06:13
[2017-02-25] MEDS: hydroCHLOROthiazide 12.5 MG CAPSULE PO SCH (09:00)
[2017-02-25] MEDS: LISINOPRIL 10 MG TAB PO SCH (09:00)
[2017-02-25] MEDS: DULoxetine 30 MG CAP (CYMBALTA) PO SCH ×2 (09:04→20:55)
[2017-02-25] MEDS: SENOKOT S TAB PO SCH ×2 (09:04→20:55)
[2017-02-25] MEDS: FERROUS SULFATE 325MG TAB PO SCH ×2 (09:04→20:55)
[2017-02-25] MEDS: PERCOCET 5MG/325MG TAB PO PRN (09:19)
[2017-02-25 09:28] VITALS: BP 102/62
[2017-02-25] MEDS: ENOXAPARIN 30 MG/0.3 ML SYR (J1650) SC SCH (10:36)
[2017-02-25] MEDS: traZODone 100 MG TAB PO SCH (20:54)
[2017-02-25 22:00] VITALS: BP 121/57
[2017-02-26] MEDS: SODIUM CHLORIDE 0.9% INJ 10 ML SYR IV SCH ×2 (00:52→17:05)
[2017-02-26 06:00] VITALS: BP 100/60
[2017-02-26] MEDS: ACETAMINOPHEN 500 MG TAB PO PRN ×2 (06:24→20:22)
[2017-02-26 08:03] LABS: BASO % 0.6 % (0.0-1.0); EOS # 0.2 K/mm3 (0.0-0.50); EOS % 3.8 % (0.0-3.0); LARGE UNSTAINED CELL # 0.1 K/mm3 (0.0-0.4); LARGE UNSTAINED CELL % 2.6 % (0.0-4.0); LYMPH # 1.6 K/mm3 (1.5-4.5); LYMPH % 31.9 % (24.0-44.0); MEAN CORPUSCULAR HEMOGLOBIN 27.8 pg (27.0-33.0); MEAN CORPUSCULAR HGB CONC 32.3 g/dl (32.0-36.5); MEAN CORPUSCULAR VOLUME 85.9 fl (80.0-96.0); MONO # 0.4 K/mm3 (0.0-0.8); MONO % 7.7 % (0.0-5.0); NEUTROPHILS # 2.5 K/mm3 (1.8-7.7); NEUTROPHILS % 53.4 % (36.0-66.0); PLATELET COUNT, AUTOMATED 283 k/mm3 (150-450); RED CELL DISTRIBUTION WIDTH 14.1 % (11.5-14.5); WHITE BLOOD COUNT 4.7 K/mm3 (4.0-10.0)
[2017-02-26] MEDS: DULoxetine 30 MG CAP (CYMBALTA) PO SCH ×2 (08:34→20:22)
[2017-02-26 08:35] VITALS: BP 100/60
[2017-02-26] MEDS: SENOKOT S TAB PO SCH ×2 (08:35→20:22)
[2017-02-26] MEDS: hydroCHLOROthiazide 12.5 MG CAPSULE PO SCH (08:35)
[2017-02-26] MEDS: FERROUS SULFATE 325MG TAB PO SCH ×2 (08:35→20:22)
[2017-02-26] MEDS: LISINOPRIL 10 MG TAB PO SCH (08:35)
[2017-02-26] MEDS: ENOXAPARIN 30 MG/0.3 ML SYR (J1650) SC SCH (08:36)
[2017-02-26 08:46] LABS: ALBUMIN 3.3 GM/DL (3.2-5.2); ALBUMIN/GLOBULIN RATIO 0.89 (1.00-1.93); ALKALINE PHOSPHATASE 44 U/L (45-117); ALT/SGPT 47 U/L (12-78); ANION GAP 9 MEQ/L (8-16); AST/SGOT 54 U/L (15-37); BILIRUBIN,TOTAL 0.4 MG/DL (0.2-1.0); BLOOD UREA NITROGEN 22 MG/DL (7-18); CALCIUM LEVEL 8.4 MG/DL (8.5-10.1); CARBON DIOXIDE LEVEL 26 MEQ/L (21-32); CHLORIDE LEVEL 106 MEQ/L (98-107); CREATININE FOR GFR 0.61 MG/DL (0.55-1.02); GLOMERULAR FILTRATION RATE > 60.0 (>58); GLUCOSE, FASTING 81 MG/DL (70-105); POTASSIUM SERUM 4.1 MEQ/L (3.5-5.1); SODIUM LEVEL 141 MEQ/L (136-145)
--- NOTE | 2017-02-26 09:51 | IPNPDOC ---
Subjective Date Seen The patient was seen on 02/26/17. Subjective Chief Complaint/HPI The patient is a 47-year-old female admitted with a reason for visit of Osteomyelitis, Discitis. Events since last encounter C/o urinary frequency and dysuria. C/o cold chills and sweats. Constitutional: Reports: Chills, Night Sweats, Denies: Fever Skin: Denies: Breakdown, Lesions, Rash Pulmonary: Denies: Cough, Dyspnea Cardiovascular: Denies: Chest Pain, Lt Headedness, Orthopnea, Palpitations, Paroxysmal Noc. Dyspnea Gastrointestinal: Denies: Abdominal Pain, Constipation, Diarrhea, Nausea, Vomiting Genitourinary: Reports: Dysuria, Frequency Psych: Reports: Mood Normal, Denies: Depression, Memory Issues Objective Physical Examination General Exam: Positive: Alert, No Acute Distress ENT Exam: Positive: Mucous membr. moist/pink Chest Exam: Positive: Clear to auscultation, Normal air movement Heart Exam: Positive: Normal S1, Normal S2, Rate Normal, Regular Rhythm, Negative: Murmurs Abdomen Exam: Positive: Normal bowel sounds, Soft, Negative: Tenderness Extremity Exam: Negative: Edema Skin Exam: Positive: Nl turgor and temperature, Other skin issue (appears to have injection garzon on B arms, covered by makeup/foundation), Negative: Rash Neuro Exam: Positive: Normal Gait, Normal Speech Psych Exam: Positive: Mental status NL, Mood NL, Oriented x 3 Assessment /Plan Problems (1) Discitis Status: Acute Problem Text: History of drug abuse. PICC line placed with plan for cefazolin every 8 hours for 6 weeks. Plan for d/c with homecare, IV abx, PFS assisting with coordination of care. She will need follow-up with [facility] addiction services. She has a history of misuse of her central venous catheter after previous admission per note. Currently admitted for discitis, and osteomyelitis at L3-L4. Disc biopsy culture is 2/2 MSSA positive. also has history of MSSA endocarditis. -Cymbalta 60 mg twice a day -Percocet -Discharge plan for Sunday on home IV antibiotics (2) Anxiety Status: Chronic Response to Treatment: Stable Problem Text: Cymbalta escalated to 60 twice a day (3) HTN (hypertension) Status: Chronic Problem Text: Blood pressure was previously low, and patient's home triamterene Hydrocort thiazide was stopped. BP cont to be elevated after starting lisinopril. - increase to lisinopril-HCTZ 10-12.5 (4) History of substance use Status: Chronic Response to Treatment: Stable Problem Text: Patient last used marijuana 11/2016 and cocaine in 2012; denies h/ o IV drug use. 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 -Patient plans to follow-up with Dr. Adair for hepatitis C -Patient have in-home substance abuse counseling (5) Hepatitis C antibody positive in blood Status: Acute Problem Text: Per outpatient notes, patient's uses IV heroin and also tested positive for Hep C. - oupt followup with Dr. Adair (6) Urinary frequency Status: Acute Problem Text: UA ordered. Plan/VTE VTE Prophylaxis Ordered?: Yes (lovenox) VS, I&O, 24H, Fishbone Vital Signs/I&O Vital Signs Date Time Temp Pulse Resp B/P Pulse Ox O2 Delivery O2 Flow Rate FiO2 02/26/17 08:35 100/60 02/26/17 06:00 99.1 82 16 98 Room Air I&O- Last 24 Hours up to 6 AM 02/26/17 05:59 Intake Total 1250 ml Output Total 0 ml Balance 1250 ml Laboratory Data 24H LABS Laboratory Tests 2 02/26/17 07:52: Blood Urea Nitrogen 22H, Creatinine 0.61, Sodium Level 141, Potassium Level 4.1 , Chloride Level 106, Carbon Dioxide Level 26, Calcium Level 8.4L, Aspartate Amino Transf (AST/SGOT) 54H, Alanine Aminotransferase (ALT/SGPT) 47, Alkaline Phosphatase 44L, Total Bilirubin 0.4, Total Protein 7.0, Albumin 3.3, Albumin/ Globulin Ratio 0.89L, Anion Gap 9, White Blood Count 4.7, Red Blood Count 4.09, Hemoglobin 11.4L, Hematocrit 35.1L, Mean Corpuscular Volume 85.9, Mean Corpuscular Hemoglobin 27.8, Mean Corpuscular Hemoglobin Concent 32.3, Red Cell Distribution Width 14.1, Platelet Count 283, Neutrophils (%) (Auto) 53.4, Lymphocytes (%) (Auto) 31.9, Monocytes (%) (Auto) 7.7H, Eosinophils (%) (Auto) 3.8H, Basophils (%) (Auto) 0.6, Neutrophils # (Auto) 2.5, Lymphocytes # (Auto) 1.6, Monocytes # (Auto) 0.4, Eosinophils # (Auto) 0.2, Basophils # (Auto) 0.0, Glomerular Filtration Rate > 60.0, Large Unclassified Cells # 0.1, Large Unclassified Cells % 2.6 CBC/BMP Laboratory Tests 02/26/17 07:52 Calcium Level 8.4 L, Aspartate Amino Transf (AST/SGOT) 54 H, Alanine Aminotransferase (ALT/SGPT) 47, Alkaline Phosphatase 44 L, Total Bilirubin 0.4, Total Protein 7.0, Albumin 3.3, Red Blood Count 4.09, Mean Corpuscular Volume 85.9, Mean Corpuscular Hemoglobin 27.8, Mean Corpuscular Hemoglobin Concent 32.3 , Red Cell Distribution Width 14.1, Neutrophils (%) (Auto) 53.4, Lymphocytes (% ) (Auto) 31.9, Monocytes (%) (Auto) 7.7 H, Eosinophils (%) (Auto) 3.8 H, Basophils (%) (Auto) 0.6, Neutrophils # (Auto) 2.5, Lymphocytes # (Auto) 1.6, Monocytes # (Auto) 0.4, Eosinophils # (Auto) 0.2, Basophils # (Auto) 0.0 Microbiology Microbiology 02/16/17 Blood Culture - Final, Complete NO GROWTH AFTER 5 DAYS 02/16/17 Anaerobic Culture - Final, Complete 02/16/17 Gram Stain - Final, Complete 02/16/17 Body Fluid Culture - Final, Complete Staphylococcus Aureus 02/16/17 Acid Fast Stain - Final, Resulted 02/16/17 Mycobacterial Culture, Resulted Pending 02/16/17 Gram Stain - Final, Complete 02/16/17 Surgical Biopsy Culture - Final, Complete Staphylococcus Aureus Serena Chow Feb 26, 2017 09:51
[2017-02-26] MEDS ORDERED: NYSTATIN 100,000 UNITS/GM TOPICAL PWD 15 GM TOP PRN (12:00)
[2017-02-26 14:00] VITALS: BP 113/59
[2017-02-26] MEDS: PERCOCET 5MG/325MG TAB PO PRN (14:47)
[2017-02-26] MEDS ORDERED: FLUCONAZOLE 50MG TABLET PO ONE (15:00)
[2017-02-26] MEDS: traZODone 100 MG TAB PO SCH (20:22)
[2017-02-26 22:00] VITALS: BP_SYST 132; BP_SYST 98; BP_DIAS 62
--- NOTE | 2017-02-26 23:57 | IPN ---
DATE: 02/26/2017 Ms. Cardona seems to be doing much better. Her back pain has improved. She does complain of significant vaginal itching and would like some Diflucan. She states she always has a yeast infection after she gets antibiotics. She denies any dysuria. There is no hematuria or flank pain. She has a low grade fever 99.4, pulse 81, respirations 16, blood pressure 113/59, oxygen saturation 97% on room air. Heart: Normal S1, S2. No wheezes, rales or rhonchi. Abdomen: Soft, nontender. Back: Mild lumbosacral tenderness L2-L4. Extremities: No edema. LABORATORY DATA: White count is 4.7, hemoglobin 11.4, hematocrit 34.1 platelets 283, 53% neutrophils, 32% lymphocytes, 7% monocytes. Sodium 141, potassium 4.1, chloride 106, bicarbonate 26, BUN 22, creatinine 0.61, glucose 81, calcium 8.4. Urine drug screen was done on 02/17/2017 and was completely negative. CRP was less than 0.3. Vitamin B12 low at 178. IMPRESSION: 1. 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 The patient is currently day #10 of IV antibiotics. She will need 6 weeks of treatment until mid March. She will be discharged tomorrow on cefazolin 2 grams IV every 8 hours. Will monitor CBC, sedimentation rate, CRP. 2. Chronic hepatitis C. The patient will need to be treated once done with treatment for discitis. She had a negative drug screen. 3. Vitamin B12 deficiency with mild anemia. 4. Suzy vaginitis. Plan: Discharge the patient home tomorrow on IV cefazolin. I gave her one dose of Diflucan for Suzy vaginitis. Also, the patient needs vitamin B12 replacement.
[2017-02-27] MEDS: SODIUM CHLORIDE 0.9% INJ 10 ML SYR IV SCH (00:25)
[2017-02-27] MEDS: SODIUM CHLORIDE 0.9% INJ 10 ML SYR IV PRN (04:37)
[2017-02-27] MEDS: PERCOCET 5MG/325MG TAB PO PRN (04:37)
[2017-02-27 04:56] LABS: BASO % 0.9 % (0.0-1.0); EOS # 0.2 K/mm3 (0.0-0.50); EOS % 4.9 % (0.0-3.0); LARGE UNSTAINED CELL # 0.1 K/mm3 (0.0-0.4); LARGE UNSTAINED CELL % 1.9 % (0.0-4.0); LYMPH # 2.2 K/mm3 (1.5-4.5); LYMPH % 42.4 % (24.0-44.0); MEAN CORPUSCULAR HEMOGLOBIN 27.5 pg (27.0-33.0); MEAN CORPUSCULAR HGB CONC 31.8 g/dl (32.0-36.5); MEAN CORPUSCULAR VOLUME 86.5 fl (80.0-96.0); MONO # 0.4 K/mm3 (0.0-0.8); MONO % 7.3 % (0.0-5.0); NEUTROPHILS # 2.1 K/mm3 (1.8-7.7); NEUTROPHILS % 42.6 % (36.0-66.0); PLATELET COUNT, AUTOMATED 270 k/mm3 (150-450); RED CELL DISTRIBUTION WIDTH 14.1 % (11.5-14.5)
[2017-02-27 06:00] VITALS: BP 111/55
[2017-02-27] MEDS ORDERED: CYMB60CA3 PO (07:20)
[2017-02-27] MEDS ORDERED: TRAZ100T4 PO (07:20)
--- NOTE | 2017-02-27 07:58 | DSES ---
DATE OF ADMISSION: 02/16/2017 DATE OF DISCHARGE: 02/27/2017 PCP: ISAIAH Thomas Attending Physician: Ken Logan HISTORY OF PRESENT ILLNESS: 47-year-old female was admitted via direct admission for osteomyelitis noted on L3-L4 on MRI of the spine completed by our neurosurgeon, Dr. Karishma Hernández. Patient had been experiencing a 4 month history of severe lumbar spine pain. Initial MRI without contrast was negative. Neurosurgeon ordered MRI with contrast and did find positive discitis, osteomyelitis of the spine. HOSPITAL COURSE: Patient was subsequently admitted. Infectious disease was consulted. Neurosurgery was consulted. She is status post CT guided biopsy of the specified area with Methicillin-sensitive staphylococcus aureus (MSSA) found on culture. Infectious disease placed patient on cefazolin 2 grams IV every 8 hours. PICC line was placed. Patient tolerated well. Throughout hospitalization, patient's vital signs have remained stable. Blood pressures did start to drop and her antihypertensives have been held the last several days with stable blood pressure in the 110s/50s. Pain has been well controlled. Routine medications including duloxetine and trazodone were maintained. Patient did complain of vaginal itching and urinary frequency yesterday. Patient did receive a one time Diflucan with excellent results. Urine was ordered and a culture has been sent. PROCEDURES: 1. PICC line insertion. 2. CT guided biopsy. IMAGING: Chest x-ray. CT guided biopsy. CONSULTATIONS: Dr. Patt Adair, infectious disease. Dr. Karishma Hernández, neurosurgery. On physical exam today, vital signs are stable. She is afebrile. HEENT: Neck is supple without lymphadenopathy or jugular venous distention (JVD). Cardiovascular: Heart rate and rhythm are regular. Pulmonary: Lungs clear to auscultation bilaterally. Abdomen: Soft and nontender. Bilateral lower extremities are without any edema. Psych: Patient answers questions appropriately. Conversation is appropriate and congruent. She is alert and oriented times three. Shows no underlying anxiety. Neuro: No tremors are appreciated. Patient is nonfocal. ASSESSMENT: 1. Chronic spondylodiscitis due to Methicillin-sensitive staphylococcus aureus (MSSA). 2. Chronic hepatitis C. 3. Vitamin B12 deficiency which was found inpatient. 4. Suzy vaginitis. 5. Drug addiction with a history of crystal methamphetamine and heroine use via IV. 6. Anxiety. 7. Hypertension. 8. Insomnia. PLAN: Patient will be discharged home. She will receive IV cefazolin every 8 hours for a total of 6 week time frame. She will followup with Dr. Patt Adair within the next 1-2 weeks. She will followup with her primary care provider Velvet Chow within the next week. Diet is as tolerated. Activity is as tolerated. She will continue with her TLSO brace as provided by Dr. Hernández. MEDICATIONS: - cefazolin 2 grams IV every 8 hours for 6 week total duration - vitamin C 500 mg by mouth daily - Benadryl 25 mg by mouth as needed for allergic reaction or itching - Duloxetine 60 mg one by mouth daily - EpiPen as needed anaphylaxis - ibuprofen 800 mg by mouth every 6 hours as needed for headache - trazodone 100 mg by mouth daily at bedtime #30 tablets [facility] has been involved with patient. She continues to wish to followup with addictions specialty as she has been sober for the last 4 months. One on one counseling has been attempted to be arranged and hopefully will be set up prior to patient's discharge as of today as patient is unable to participate in group secondary to the discitis and the back pain. Patient is discharged in stable satisfactory condition with no further questions at time of discharge. LYNDA
[2017-02-27] MEDS: FERROUS SULFATE 325MG TAB PO SCH (08:28)
[2017-02-27] MEDS: DULoxetine 30 MG CAP (CYMBALTA) PO SCH (08:28)
[2017-02-27] MEDS: SENOKOT S TAB PO SCH (08:28)
[2017-02-27] MEDS: LISINOPRIL 10 MG TAB PO SCH (08:30)
[2017-02-27] MEDS: ENOXAPARIN 30 MG/0.3 ML SYR (J1650) SC SCH (08:30)
[2017-02-27] MEDS: hydroCHLOROthiazide 12.5 MG CAPSULE PO SCH (08:30)
== END 2017-02-27 10:51 | disposition home health service (06) | DRG 347 ==
LOC: OBSVTOIN 09:47 → M MSPAV 09:47
PROVIDERS: ADMIT Family Medicine; ATTEND Family Medicine
PROC: 009U3ZX Drainage of Spinal Canal, Percutaneous Approach, Diagnostic (ICD-10-PCS; principal; 2017-02-16)
PROC: 05HB33Z Insertion of Infusion Device into Right Basilic Vein, Percutaneous Approach (ICD-10-PCS; 2017-02-20)
DX: M46.56 Other infective spondylopathies, lumbar region (principal); I10 Essential (primary) hypertension; F11.20 Opioid dependence, uncomplicated; B37.3 Candidiasis of vulva and vagina; M47.812 Spondylosis without myelopathy or radiculopathy, cervical region; B95.61 Methicillin susceptible Staphylococcus aureus infection as the cause of diseases classified elsewhere; M47.816 Spondylosis without myelopathy or radiculopathy, lumbar region; F41.9 Anxiety disorder, unspecified; M46.46 Discitis, unspecified, lumbar region; G47.00 Insomnia, unspecified; B18.2 Chronic viral hepatitis C; D50.9 Iron deficiency anemia, unspecified; K59.00 Constipation, unspecified; Z91.030 Bee allergy status; Z79.899 Other long term (current) drug therapy; Z88.1 Allergy status to other antibiotic agents; Z88.0 Allergy status to penicillin

== ENCOUNTER → 2017-03-06 | Outpatient (REF) | payer OTHER ==
[~2017-03-06] MED LIST changes: +IBUP80TA PO; +VITA-130 PO
[2017-03-06 12:00] LABS: MEAN CORPUSCULAR HEMOGLOBIN 27.4 pg (27.0-33.0); MEAN CORPUSCULAR HGB CONC 31.3 g/dl (32.0-36.5); MEAN CORPUSCULAR VOLUME 87.7 fl (80.0-96.0); RED CELL DISTRIBUTION WIDTH 14.7 % (11.5-14.5); WHITE BLOOD COUNT 5.8 K/mm3 (4.0-10.0)
== END ==
LOC: M LAB REF 11:36
PROVIDERS: ATTEND Student in an Organized Health Care Education/Training Program
DX: M46.26 Osteomyelitis of vertebra, lumbar region (principal)

== ENCOUNTER → 2017-03-07 | Outpatient (CLI) | payer OTHER ==
[2017-03-07 13:40] LABS: BASO % 0.4 % (0.0-1.0); EOS % 0.7 % (0.0-3.0); LARGE UNSTAINED CELL # 0.1 K/mm3 (0.0-0.4); LYMPH # 1.5 K/mm3 (1.5-4.5); LYMPH % 19.7 % (24.0-44.0); MEAN CORPUSCULAR HEMOGLOBIN 27.7 pg (27.0-33.0); MEAN CORPUSCULAR HGB CONC 32.1 g/dl (32.0-36.5); MEAN CORPUSCULAR VOLUME 86.4 fl (80.0-96.0); MONO # 0.2 K/mm3 (0.0-0.8); MONO % 3.2 % (0.0-5.0); NEUTROPHILS # 5.4 K/mm3 (1.8-7.7); PLATELET COUNT, AUTOMATED 270 k/mm3 (150-450); RED CELL DISTRIBUTION WIDTH 14.6 % (11.5-14.5); WHITE BLOOD COUNT 7.2 K/mm3 (4.0-10.0)
[2017-03-07 14:36] LABS: ERYTHROCYTE SEDIMENTATION RATE 8 mm/hr (0-20)
== END ==
LOC: M LAB 12:26
PROVIDERS: ATTEND Nurse Practitioner Family
DX: Z20.6 Contact with and (suspected) exposure to human immunodeficiency virus [HIV] (principal)

== ENCOUNTER → 2017-03-07 | Outpatient (CLI) | payer OTHER ==
--- NOTE | 2017-03-07 19:38 | REP ---
MRI LUMBAR SPINE WITHOUT AND WITH CONTRAST: HISTORY: Followup osteomyelitis. COMPARISON: 02/12/2017 from [facility]. GADOLINIUM: 11 mL of ProHance Vertebral body height and alignment is unchanged. Disc space narrowing at every level unchanged. No abnormal signal or enhancement has developed in the imaged portion of the spinal cord. Abnormal T1 and T2 prolongation in the L3 and L4 vertebral bodies has decreased significantly compared to the prior exam. The degree of abnormal enhancement involving not only those two vertebral bodies, but the disc space between those bodies has also decreased. The degree of enhancing paravertebral and epidural phlegmon has significantly decreased. Mild thecal sac compression seen at the L3-4 level has also significantly decreased. The bilateral L3 foraminal nerve impingement has decreased somewhat as well. There are no other significant changes compared to the prior exam. IMPRESSION: There has been considerable improvement in the appearance of the discitis osteomyelitis as described above. Signed by Brendon Stoner DO 03/09/2017 03:43 P
== END ==
LOC: M RAD 17:32
PROVIDERS: ATTEND Nurse Practitioner Family
DX: M86.28 Subacute osteomyelitis, other site (principal)

== ENCOUNTER → 2017-03-08 | Outpatient (CLI) | payer MEDICAID | LOC: M OUTALCOH 10:59 | PROVIDERS: ATTEND Psychiatry & Neurology Psychiatry | DX: Z13.9 Encounter for screening, unspecified (principal); F15.20 Other stimulant dependence, uncomplicated; F14.20 Cocaine dependence, uncomplicated ==

== ENCOUNTER → 2017-03-13 | Outpatient (REF) | payer MEDICAID ==
[2017-03-13 16:22] LABS: MEAN CORPUSCULAR HEMOGLOBIN 27.9 pg (27.0-33.0); MEAN CORPUSCULAR HGB CONC 31.7 g/dl (32.0-36.5); MEAN CORPUSCULAR VOLUME 88.2 fl (80.0-96.0); RED CELL DISTRIBUTION WIDTH 14.8 % (11.5-14.5); WHITE BLOOD COUNT 5.6 K/mm3 (4.0-10.0)
== END ==
LOC: M SHH 16:07
PROVIDERS: ATTEND Student in an Organized Health Care Education/Training Program
DX: M46.40 Discitis, unspecified, site unspecified (principal)

== ENCOUNTER 2017-03-16 11:00 | Outpatient (RCR) | payer MEDICAID | END 2017-03-18 | LOC: M OUTALCOH 11:00 | PROVIDERS: ATTEND Psychiatry & Neurology Psychiatry | DX: F15.20 Other stimulant dependence, uncomplicated (principal); F14.20 Cocaine dependence, uncomplicated ==

== ENCOUNTER → 2017-03-20 | Outpatient (REF) | payer MEDICAID ==
[2017-03-20 14:54] LABS: MEAN CORPUSCULAR HEMOGLOBIN 28.6 pg (27.0-33.0); MEAN CORPUSCULAR HGB CONC 32.7 g/dl (32.0-36.5); MEAN CORPUSCULAR VOLUME 87.5 fl (80.0-96.0); RED CELL DISTRIBUTION WIDTH 15.1 % (11.5-14.5); WHITE BLOOD COUNT 6.5 K/mm3 (4.0-10.0)
== END ==
LOC: M LAB REF 14:40
PROVIDERS: ATTEND Student in an Organized Health Care Education/Training Program
DX: M46.40 Discitis, unspecified, site unspecified (principal)

== ENCOUNTER 2017-03-24 11:17 | Emergency (ER) | payer MEDICAID, OTHER ==
[~2017-03-24] VITALS: Ht 165.1 cm; Wt 59.0 kg
[2017-03-24 11:33] VITALS: BP 163/95
== END 2017-03-24 12:00 | disposition left against medical advice (07) ==
LOC: EDBD 11:17 → M ED 11:59
DX: F15.10 Other stimulant abuse, uncomplicated (principal); R44.3 Hallucinations, unspecified; L98.9 Disorder of the skin and subcutaneous tissue, unspecified; F14.10 Cocaine abuse, uncomplicated; F11.10 Opioid abuse, uncomplicated; R00.0 Tachycardia, unspecified; B19.20 Unspecified viral hepatitis C without hepatic coma; I10 Essential (primary) hypertension; K59.00 Constipation, unspecified; M54.9 Dorsalgia, unspecified; F41.9 Anxiety disorder, unspecified; F32.9 Major depressive disorder, single episode, unspecified; F17.210 Nicotine dependence, cigarettes, uncomplicated; F99 Mental disorder, not otherwise specified

== ENCOUNTER 2017-05-31 11:52 | Inpatient (IN) | payer MEDICAID, OTHER ==
[~2017-05-31] VITALS: Ht 165.1 cm; Wt 62.8 kg
[~2017-05-31 11:52] MED LIST changes: +PERC5TAB12 PO; -PERC5TAB6 PO; +TRAZ-136 PO; -TRAZ100T4 PO; -TRAZ150T14 PO; +TRAZ1TAB14 PO; -VITA-130 PO; +VITA500T PO
[2017-05-31] MEDS ORDERED: DULO1CAP3 PO (12:03)
[2017-05-31] MEDS ORDERED: TYLE500T78 PO (12:03)
[2017-05-31 13:44] LABS: BASO % 0.4 % (0.0-1.0); EOS # 0.2 K/mm3 (0.0-0.50); EOS % 1.1 % (0.0-3.0); LARGE UNSTAINED CELL # 0.2 K/mm3 (0.0-0.4); LARGE UNSTAINED CELL % 1.1 % (0.0-4.0); LYMPH # 1.1 K/mm3 (1.5-4.5); LYMPH % 7.2 % (24.0-44.0); MEAN CORPUSCULAR HGB CONC 33.4 g/dl (32.0-36.5); MEAN CORPUSCULAR VOLUME 86.8 fl (80.0-96.0); MONO # 1.1 K/mm3 (0.0-0.8); NEUTROPHILS # 11.4 K/mm3 (1.8-7.7); NEUTROPHILS % 82.3 % (36.0-66.0); PLATELET COUNT, AUTOMATED 368 k/mm3 (150-450); RED CELL DISTRIBUTION WIDTH 13.9 % (11.5-14.5); WHITE BLOOD COUNT 13.8 K/mm3 (4.0-10.0)
[2017-05-31] MEDS ORDERED: ONDANSETRON 4MG/2ML VIAL (J2405) IV ONE (13:45)
[2017-05-31] MEDS ORDERED: fentaNYL 100 MCG/2 ML INJECTION (J3010) IV ONE (13:45)
[2017-05-31] MEDS ORDERED: NS 500 ML IV ONE (13:45)
[2017-05-31 13:48] LABS: ALBUMIN 2.7 GM/DL (3.2-5.2); ALBUMIN/GLOBULIN RATIO 0.61 (1.00-1.93); ALKALINE PHOSPHATASE 63 U/L (45-117); ALT/SGPT 23 U/L (12-78); ANION GAP 6 MEQ/L (8-16); AST/SGOT 9 U/L (15-37); BILIRUBIN,DIRECT < 0.1 MG/DL (0.0-0.2); BILIRUBIN,TOTAL 0.2 MG/DL (0.2-1.0); BLOOD UREA NITROGEN 6 MG/DL (7-18); CALCIUM LEVEL 8.6 MG/DL (8.5-10.1); CARBON DIOXIDE LEVEL 31 MEQ/L (21-32); CHLORIDE LEVEL 99 MEQ/L (98-107); CREATININE FOR GFR 0.48 MG/DL (0.55-1.02); GLOMERULAR FILTRATION RATE > 60.0 (>58); GLUCOSE, FASTING 109 MG/DL (70-105); POTASSIUM SERUM 2.9 MEQ/L (3.5-5.1); SODIUM LEVEL 136 MEQ/L (136-145); TOTAL PROTEIN 7.1 GM/DL (6.4-8.2)
[2017-05-31 13:54] LABS: ERYTHROCYTE SEDIMENTATION RATE 63 mm/hr (0-20)
[2017-05-31] MEDS ORDERED: POTASSIUM CHLORIDE INJ 20 MEQ in D5W/LR 1,000 ML IV SCH (14:00)
[2017-05-31] MEDS ORDERED: KCL 10MEQ IN 100ML SWI (KRUN) 10 MEQ in APPROPRIATE DILUENT 1 EA IV ONE ×2 (14:30)
--- NOTE | 2017-05-31 16:46 | REP ---
MR LUMBAR SPINE WITHOUT AND WITH CONTRAST: HISTORY: Osteomyelitis. CONTRAST: ProHance 11 mL. COMPARISON: 03/07/2017 Decreased signal intensity on T2 weighted images is present in the L3-4 and L4-5 intervertebral discs. The discs are decreased in height. These findings are consistent with disc degeneration. Increased signal intensity on T2 weighted images is present in the L3-4 and L4-5 vertebral bodies. There is loss of the end plates adjacent to the L3-4 intervertebral discs. There is mild homogenous enhancement of the L3 and 4 vertebral bodies and intervertebral disc. This appears decreased compared to the previous study. A new abscess is present in the right psoas muscle. The abscess measures 2.9 cm in width. The abscess extends from the L1-2 level inferior to the L3-4 level. There has been an increase in size of the paravertebral phlegmon on the right at the L2-3 to L3-4 level. A small 6 mm abscess is present in the right L2 neural foramen and right anterior epidural space. There is very minimal compression of the thecal sac. There is compression of the right L2 nerve in the neural foramen . The anterior and and left lateral paravertebral enhancing soft tissue component is decreased compared to the previous study. Abscesses are present in the right posterior paravertebral soft tissue extending the L2-3 level inferior to the L4-5 level. These measure 1 to 2.2 mm in width. Disc bulges are present at the L3-4 and L4-5 levels. There is minimal compression of the thecal sac. IMPRESSION: Findings consistent with discitis myelitis at the L3-4 level. There is decreased enhancement of the L3 and L4 vertebral bodies and L3-4 intervertebral disc. There are new abscesses in the right psoas muscle and right posterior paravertebral soft tissue extending from the L1-2 level inferior to the L4-5 level. A small right intraforaminal and epidural abscess is present at the L2-3 level. There is minimal compression of the thecal sac. Signed by Filiberto Graves MD 05/31/2017 04:57 P
[2017-05-31 17:43] LABS: METHADONE URINE NEGATIVE (NEGATIVE)
[2017-05-31] MEDS ORDERED: TRAZ-136 PO (17:47)
[2017-05-31] MEDS: MORPHINE 2 MG/ML 1ML SYRINGE IV PRN ×2 (18:28→22:14)
[2017-05-31] MEDS ORDERED: POTASSIUM CHLORIDE 10 MEQ SR TABLET PO ONE (18:30)
[2017-05-31 18:40] LABS: PERCENT SATURATION 4.4 % (13.2-37.4)
[2017-05-31 18:47] LABS: FOLATE 9.7 NG/ML (>5.4)
--- NOTE | 2017-05-31 19:03 | HPEPDOC ---
General Date of Admission May 31, 2017 at 17:55 Chief Complaint The patient is a 47-year-old female admitted with a reason for visit of Psoas Abscess. History of Present Illness Ms. Cardona is a 47 y/o female with past medical history of depression, IVDU with last use 3-4 months ago per pt., heroin and cocaine, chronic hep. C, discitis who presents to ED today with CC increasing low back and right hip pain, diarrhea for the past two days ( two episodes per day, no blood or mucus as per pt), nausea and vomiting for the past three days ( 4-5 episodes vomiting per day , clear vomitus, no blood or bile as per pt.), fevers of up to 101 C at home, headache above her left eye, throbbing for the past three days, the pt has hx. of discitis and was admitted for this in our hospital January 2017, she followed with Dr Santoro and Dr Adair and completed her 6 week outpt abx. treatment, she was at Dr. Santoro's office today for increasing LBP and she was instructed to come to the ED. The pt also states she has been SOB during the past few days but thinks this is due to her anxiety about the thought of re-occurring discitis , denies CP or palpitations. Denies change in vision, denies abdominal pain nor pain with urination or defecation. Her biggest complaint on presentation today is her sharp back pain radiating to her right hip. Home Medications Scheduled Ascorbic Acid (Vitamin C) 500 Mg Tab, 500 MG PO DAILY, (Reported) Duloxetine Hcl (Duloxetine HCl) 60 Mg Cap, 60 MG PO DAILY, (Reported) Trazodone HCl (Trazodone HCl) 100 Mg Tab, 100 MG PO QHS, (Reported) Scheduled PRN (Epipen 2-Tristin) 0.3 Mg/0.3 Ml Inj, 0.3 MG INJ ASDIRECTED PRN for ANAPHYLAXIS, ( Reported) Acetaminophen (Tylenol Extra Strength) 500 Mg Tab, 500 MG PO for PAIN OR FEVER, (Reported) Diphenhydramine HCl (Diphenhydramine HCl) 25 Mg Cap, 25 MG PO PRN PRN for ALLERGIC REACTION, (Reported) Ibuprofen (Ibuprofen) 800 Mg Tab, 800 MG PO Q6H PRN for HEADACHE, (Reported) Allergies Coded Allergies: Erythromycin (Verified Allergy, Severe, THROAT CLOSES, 02/24/13) Iodine (Unverified Allergy, Severe, THROAT CLOSES, 02/24/13) Penicillins (Unverified Allergy, Severe, THROAT CLOSES, 02/24/13) Penicillins Cross Reactors (Unverified Allergy, Severe, THROAT CLOSES, 02/24) Bee Venom (Unverified Allergy, Unknown, anaphylaxis, 10/07/16) SEAFOOD (Unverified Allergy, Unknown, anaphylaxis, 10/07/16) Family History Significant Family History: No pertinent family hx Social History * Smoker: Denies Alcohol: Denies Drugs: IV drug use (former IVDU, cocaine and meth., last reported several months ago) Psychosocial History: Anxiety, Depression Review of Symptoms Constitutional: Reports: Chills, Fever, Malaise, Weakness, Fatigue, Denies: Night Sweats Eyes: Denies: Pain, Vision change, Conjunctivae inflammation Skin: Denies: Rash, Lesions Pulmonary: Reports: Dyspnea, Denies: Cough Cardiovascular: Denies: Chest Pain, Palpitations Gastrointestinal: Reports: Nausea, Vomiting, Diarrhea, Denies: Abdominal Pain, Constipation, Melena, Hematochezia Genitourinary: Denies: Dysuria, Frequency Hematologic: Denies: Bruising Musculoskeletal: Reports: Back Pain, Other Symptoms (right hip pain), Denies: Neck Pain Neurological: Reports: Weakness, Denies: Numbness, Incoordination, Change in speech, Confusion, Seizures Psych: Reports: Mood Normal Physical Examination General Exam: Positive: Alert, Cooperative, Moderate Distress Eye Exam: Positive: PERRLA, EOMI, Negative: Sclera icteric ENT Exam: Positive: Atraumatic, Mucous membr. moist/pink, Pharynx Normal Neck Exam: Positive: Supple, Negative: JVD Chest Exam: Positive: Clear to auscultation, Normal air movement, Negative: Rales, Rhonchi, Wheezing Heart Exam: Positive: Rate Normal, Tachycardic, Normal S1, Normal S2, Murmurs ( systolic ) Telemetry: Positive: No significant arrhythmia Abdomen Exam: Positive: Normal bowel sounds, Soft, Negative: Tenderness, Hepatospenomegaly Extremity Exam: Positive: Normal pulses, Tenderness (right hip and low back lumbar spine), Negative: Clubbing, Cyanosis, Edema, Swelling Skin Exam: Negative: Rash, Breakdown Neuro Exam: Positive: Normal Speech Psych Exam: Positive: Mental status NL Vital Signs Vital Signs Date Time Temp Pulse Resp B/P (MAP) Pulse Ox O2 Delivery O2 Flow Rate FiO2 05/31/17 18:28 18 05/31/17 16:21 100.6 160/89 (112) 95 Room Air 05/31/17 11:53 105 Laboratory Data Labs 24H Laboratory Tests 2 05/31/17 12:35: White Blood Count 13.8H, Red Blood Count 3.35L, Hemoglobin 9.7L, Hematocrit 29.1L, Mean Corpuscular Volume 86.8, Mean Corpuscular Hemoglobin 29.0, Mean Corpuscular Hemoglobin Concent 33.4, Red Cell Distribution Width 13.9, Platelet Count 368, Neutrophils (%) (Auto) 82.3H, Lymphocytes (%) (Auto) 7.2L, Monocytes (%) (Auto) 8.0H, Eosinophils (%) (Auto) 1.1, Basophils (%) (Auto) 0.4, Neutrophils # (Auto) 11.4H, Lymphocytes # (Auto) 1.1L, Monocytes # (Auto) 1.1H, Eosinophils # (Auto) 0.2, Basophils # (Auto) 0.0, Large Unclassified Cells % 1.1 , Large Unclassified Cells # 0.2, Erythrocyte Sedimentation Rate 63H, Anion Gap 6L, Glomerular Filtration Rate > 60.0, Calcium Level 8.6, Aspartate Amino Transf (AST/SGOT) 9L, Alanine Aminotransferase (ALT/SGPT) 23, Alkaline Phosphatase 63, Total Bilirubin 0.2, Direct Bilirubin < 0.1, C-Reactive Protein , Quantitative 21.40H, Total Protein 7.1, Albumin 2.7L, Albumin/Globulin Ratio 0.61L 05/31/17 17:11: Urine Amphetamines Screen NEGATIVE, Urine Benzodiazepines Screen NEGATIVE, Urine Opiates Screen NEGATIVE, Urine Methadone Screen NEGATIVE, Urine Barbiturates Screen NEGATIVE, Urine Phencyclidine Screen NEGATIVE, Urine Cocaine Metabolite Screen NEGATIVE, Urine Cannabinoids Screen NEGATIVE 05/31/17 18:11: CBC/BMP Laboratory Tests 05/31/17 12:35 Red Blood Count 3.35 L, Mean Corpuscular Volume 86.8, Mean Corpuscular Hemoglobin 29.0, Mean Corpuscular Hemoglobin Concent 33.4, Red Cell Distribution Width 13.9, Neutrophils (%) (Auto) 82.3 H, Lymphocytes (%) (Auto) 7.2 L, Monocytes (%) (Auto) 8.0 H, Eosinophils (%) (Auto) 1.1, Basophils (%) ( Auto) 0.4, Neutrophils # (Auto) 11.4 H, Lymphocytes # (Auto) 1.1 L, Monocytes # (Auto) 1.1 H, Eosinophils # (Auto) 0.2, Basophils # (Auto) 0.0 Microbiology Microbiology 05/31/17 Blood Culture, Received Pending 05/31/17 Blood Culture, Received Pending Problems (1) Discitis Status: Acute Response to Treatment: Stable Problem Text: lumbar spine MRI shows: IMPRESSION: Findings consistent with discitis myelitis at the L3-4 level. There is decreased enhancement of the L3 and L4 vertebral bodies and L3-4 intervertebral disc. There are new abscesses in the right psoas muscle and right posterior paravertebral soft tissue extending from the L1-2 level inferior to the L4-5 level. A small right intraforaminal and epidural abscess is present at the L2-3 level. There is minimal compression of the thecal sac. Temperature and WBC in ED 100.6 and 13.8 ESR 63 CRP 21 Since pt's last path. for bx of prior discitis was + for MSSA , and patient did well with cefazolin last admission for discitis, we will continue discitis 2g [id number] Will place order for IR tomorrow for catheter placement into psoas abscess tomorrow Have spoken to Dr Adair and Dr Santoro who seen pt in ED., agree with catheter placement. Pain control morphine blood and urine culture pending Echo from February 2017 neg. for vegetation, will repeat Echo due to hx of IVDU & potential re-occurrence of discitis, pt also appears to have new systolic murmur , cannot find documented on prior H&P's, further evidence for Echo in AM. (2) Psoas abscess Status: Acute Response to Treatment: Stable Problem Text: Right psoas on MRI Have put in order for IR to place catheter as per recommendation of Dr. Santoro who saw pt. in ED (3) Anemia Status: Acute Problem Text: 9.7/29.1 This seems to be a new finding will order occult stool and iron studies no active source of bleeding at this time continue to monitor (4) Diarrhea Status: Acute Response to Treatment: Stable Problem Text: Begin IV fluids as pt. has had decreased oral intake due to pain and nausea Have ordered stool occult likely hypokalemic from diarrhea, have begun replacement due to pts recent abx use, will perform C.Diff. study began pt. on Bacid continue to monitor (5) Hypokalemia Response to Treatment: Stable Problem Text: 2.9 in ED likely 2/2 diarrhea received 10 in ED, will do 40 PO and recheck tonight continue to monitor (6) Anxiety Status: Chronic Response to Treatment: Stable Problem Text: continue to monitor stable (7) HTN (hypertension) Status: Chronic Response to Treatment: Stable Problem Text: BP 160/80 likely 2/2 intense pain pt is not on HTN medications will hold of on scheduling BP meds, as expect pt will become normotensive once pain is under control (8) History of substance use Status: Chronic Response to Treatment: Stable Problem Text: tox. in ED negative stable continue to monitor (9) DVT prophylaxis Status: Acute Response to Treatment: Stable Problem Text: SCD TEDS Plan / VTE VTE Prophylaxis Ordered?: Yes GME ATTESTATION GME ATTESTATION My preceptor for this patient encounter was physically present in the building during the encounter and was fully available. As needed, all aspects of the patient interview, examination, medical decision making process, and medical care plan development were reviewed and approved by the preceptor. Preceptor is aware and concurs with the plan as stated in the body of this note and will attest to such by his/her cosignature. MARTIN PEREZ DO May 31, 2017 19:03
[2017-05-31] MEDS: NS 1,000 ML IV SCH (21:03)
[2017-05-31 21:15] VITALS: BP 167/93
[2017-05-31] MEDS: traZODone 100 MG TAB PO SCH (22:13)
[2017-05-31] MEDS: LACTOBACILLUS ACIDOPHILUS CAP (BACID) PO SCH (22:14)
[2017-05-31] MEDS: DULoxetine 30 MG CAP (CYMBALTA) PO SCH (22:23)
[2017-05-31] MEDS: ONDANSETRON 4 MG TAB (S0181) PO PRN (23:28)
[2017-05-31 23:59] VITALS: BP 158/90
[2017-06-01 01:05] LABS: MAGNESIUM LEVEL 1.8 MG/DL (1.8-2.4); POTASSIUM SERUM 3.2 MEQ/L (3.5-5.1)
[2017-06-01] MEDS ORDERED: POTASSIUM CHLORIDE 10 MEQ SR TABLET PO ONE (01:30)
[2017-06-01] MEDS: MORPHINE 2 MG/ML 1ML SYRINGE IV PRN ×7 (02:10→21:24)
[2017-06-01 04:45] VITALS: BP 169/98
[2017-06-01 05:48] LABS: BASO % 0.2 % (0.0-1.0); EOS # 0.1 K/mm3 (0.0-0.50); EOS % 0.6 % (0.0-3.0); LARGE UNSTAINED CELL # 0.2 K/mm3 (0.0-0.4); LARGE UNSTAINED CELL % 1.4 % (0.0-4.0); LYMPH # 1.5 K/mm3 (1.5-4.5); LYMPH % 7.5 % (24.0-44.0); MEAN CORPUSCULAR HEMOGLOBIN 29.1 pg (27.0-33.0); MEAN CORPUSCULAR HGB CONC 33.2 g/dl (32.0-36.5); MEAN CORPUSCULAR VOLUME 87.6 fl (80.0-96.0); MONO # 1.3 K/mm3 (0.0-0.8); MONO % 7.4 % (0.0-5.0); NEUTROPHILS # 14.1 K/mm3 (1.8-7.7); NEUTROPHILS % 82.8 % (36.0-66.0); PLATELET COUNT, AUTOMATED 392 k/mm3 (150-450); RED CELL DISTRIBUTION WIDTH 13.8 % (11.5-14.5)
[2017-06-01 06:03] LABS: ANION GAP 7 MEQ/L (8-16); BLOOD UREA NITROGEN 4 MG/DL (7-18); CALCIUM LEVEL 8.8 MG/DL (8.5-10.1); CARBON DIOXIDE LEVEL 30 MEQ/L (21-32); CHLORIDE LEVEL 98 MEQ/L (98-107); CREATININE FOR GFR 0.58 MG/DL (0.55-1.02); GLOMERULAR FILTRATION RATE > 60.0 (>58); GLUCOSE, FASTING 134 MG/DL (70-105); POTASSIUM SERUM 3.4 MEQ/L (3.5-5.1); SODIUM LEVEL 135 MEQ/L (136-145)
[2017-06-01] MEDS: DULoxetine 30 MG CAP (CYMBALTA) PO SCH (07:54)
[2017-06-01] MEDS: LACTOBACILLUS ACIDOPHILUS CAP (BACID) PO SCH ×2 (07:54→21:23)
[2017-06-01] MEDS: ASCORBIC ACID 500 MG TAB PO SCH (07:54)
[2017-06-01 08:00] VITALS: BP 163/96
--- NOTE | 2017-06-01 11:48 | IPNPDOC ---
Subjective Date Seen The patient was seen on 06/01/17. Subjective Chief Complaint/HPI The patient is a 47-year-old female admitted with a reason for visit of Psoas Abscess. Events since last encounter Patient seen at approximately 6:15 am this morning; she reports continued back pain and states she feels nauseated due to pain. Constitutional: Denies: Chills, Fever Pulmonary: Denies: Dyspnea Cardiovascular: Denies: Chest Pain, Palpitations Gastrointestinal: Reports: Nausea, Denies: Vomiting, Abdominal Pain, Diarrhea, Constipation Genitourinary: Denies: Dysuria Musculoskeletal: Reports: Back Pain Neurological: Denies: Weakness, Confusion Objective Physical Examination General Exam: Positive: Alert, Cooperative, Moderate Distress Eye Exam: Positive: PERRLA ENT Exam: Positive: Atraumatic, Mucous membr. moist/pink, Pharynx Normal Neck Exam: Positive: Supple, Negative: JVD Chest Exam: Positive: Clear to auscultation, Normal air movement, Negative: Rales, Rhonchi, Wheezing Heart Exam: Positive: Rate Normal, Regular Rhythm, Normal S1, Normal S2 Telemetry: Positive: No significant arrhythmia Abdomen Exam: Positive: Normal bowel sounds, Soft, Negative: Tenderness, Hepatospenomegaly Extremity Exam: Positive: Normal pulses, Tenderness (right hip and low back lumbar spine), Negative: Clubbing, Cyanosis, Edema, Swelling Skin Exam: Negative: Rash, Breakdown Neuro Exam: Positive: Normal Speech Psych Exam: Positive: Mental status NL Assessment /Plan Problems (1) Discitis Status: Acute Response to Treatment: Stable Problem Text: 06/01/17 - Patient febrile to 100.7 overnight; WBCs are increased today. - Continue cefazolin 2 g Q8H IV for disciitis; prior biopsy of disciitis was + for MSSA; ID consult pending - IR is to place catheter today for psoas abscess - Dr. 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 There is decreased enhancement of the L3 and L4 vertebral bodies and L3-4 intervertebral disc. There are new abscesses in the right psoas muscle and right posterior paravertebral soft tissue extending from the L1-2 level inferior to the L4-5 level. A small right intraforaminal and epidural abscess is present at the L2-3 level. There is minimal compression of the thecal sac. (2) Psoas abscess Status: Acute Response to Treatment: Stable Problem Text: Right psoas on MRI Pending: IR to place catheter as per recommendation of Dr. Hernández who saw pt. in ED (3) Anemia Status: Acute Problem Text: H/H 9.7/29.1 upon admission; Hgb improved to 11.4 today without intervention, which is consistent with her baseline - Iron studies are consistent with iron deficiency - Occult stool is pending (4) Diarrhea Status: Acute Response to Treatment: Stable Problem Text: Continue IV fluids as pt. has had decreased oral intake due to pain and nausea Due to pts recent abx use, C. diff was ordered and is pending Continue Bacid (5) Hypokalemia Response to Treatment: Stable Problem Text: 2.9 in ED likely 2/2 diarrhea; improved to 3.4 today after repletion. - Continue KCl 20 mEq daily - Recheck BMP in the AM (6) Anxiety Status: Chronic Response to Treatment: Stable Problem Text: continue to monitor stable (7) HTN (hypertension) Status: Chronic Response to Treatment: Stable Problem Text: BP has been 160s/90s, likely due to pain - Monitor; if elevated BP persists after drainage of psoas abscess, will consider adding medication for elevated BP (8) History of substance use Status: Chronic Response to Treatment: Stable Problem Text: tox. in ED negative stable continue to monitor (9) DVT prophylaxis Status: Acute Response to Treatment: Stable Problem Text: SCD TEDS Plan/VTE VTE Prophylaxis Ordered?: Yes VS, I&O, 24H, Fishbone Vital Signs/I&O Vital Signs Date Time Temp Pulse Resp B/P (MAP) Pulse Ox O2 Delivery O2 Flow Rate FiO2 06/01/17 10:45 20 06/01/17 08:00 97.9 98 163/96 (118) 97 Room Air I&O- Last 24 Hours up to 6 AM 06/01/17 06:00 Intake Total 930 ml Output Total 1000 ml Balance -70 ml Laboratory Data 24H LABS Laboratory Tests 2 05/31/17 12:35: White Blood Count 13.8H, Red Blood Count 3.35L, Hemoglobin 9.7L, Hematocrit 29.1L, Mean Corpuscular Volume 86.8, Mean Corpuscular Hemoglobin 29.0, Mean Corpuscular Hemoglobin Concent 33.4, Red Cell Distribution Width 13.9, Platelet Count 368, Neutrophils (%) (Auto) 82.3H, Lymphocytes (%) (Auto) 7.2L, Monocytes (%) (Auto) 8.0H, Eosinophils (%) (Auto) 1.1, Basophils (%) (Auto) 0.4, Neutrophils # (Auto) 11.4H, Lymphocytes # (Auto) 1.1L, Monocytes # (Auto) 1.1H, Eosinophils # (Auto) 0.2, Basophils # (Auto) 0.0, Large Unclassified Cells % 1.1 , Large Unclassified Cells # 0.2, Erythrocyte Sedimentation Rate 63H, Anion Gap 6L, Glomerular Filtration Rate > 60.0, Calcium Level 8.6, Aspartate Amino Transf (AST/SGOT) 9L, Alanine Aminotransferase (ALT/SGPT) 23, Alkaline Phosphatase 63, Total Bilirubin 0.2, Direct Bilirubin < 0.1, C-Reactive Protein , Quantitative 21.40H, Total Protein 7.1, Albumin 2.7L, Albumin/Globulin Ratio 0.61L 05/31/17 17:11: Urine Amphetamines Screen NEGATIVE, Urine Benzodiazepines Screen NEGATIVE, Urine Opiates Screen NEGATIVE, Urine Methadone Screen NEGATIVE, Urine Barbiturates Screen NEGATIVE, Urine Phencyclidine Screen NEGATIVE, Urine Cocaine Metabolite Screen NEGATIVE, Urine Cannabinoids Screen NEGATIVE 05/31/17 18:11: Iron Level 11L, Total Iron Binding Capacity 249L, Transferrin % Saturation 4.4L , Ferritin 121, Vitamin B12 Level 327, Folate 9.7 06/01/17 00:40: Magnesium Level 1.8 06/01/17 05:28: White Blood Count 17.0H, Red Blood Count 3.83L, Hemoglobin 11.2L, Hematocrit 33.6L, Mean Corpuscular Volume 87.6, Mean Corpuscular Hemoglobin 29.1, Mean Corpuscular Hemoglobin Concent 33.2, Red Cell Distribution Width 13.8, Platelet Count 392, Neutrophils (%) (Auto) 82.8H, Lymphocytes (%) (Auto) 7.5L, Monocytes (%) (Auto) 7.4H, Eosinophils (%) (Auto) 0.6, Basophils (%) (Auto) 0.2, Neutrophils # (Auto) 14.1H, Lymphocytes # (Auto) 1.5, Monocytes # (Auto) 1.3H, Eosinophils # (Auto) 0.1, Basophils # (Auto) 0.0, Large Unclassified Cells % 1.4 , Large Unclassified Cells # 0.2, Anion Gap 7L, Glomerular Filtration Rate > 60.0, Blood Urea Nitrogen 4L, Creatinine 0.58, Sodium Level 135L, Potassium Level 3.4L, Chloride Level 98, Carbon Dioxide Level 30, Calcium Level 8.8 CBC/BMP Laboratory Tests 05/31/17 12:35 Red Blood Count 3.35 L, Mean Corpuscular Volume 86.8, Mean Corpuscular Hemoglobin 29.0, Mean Corpuscular Hemoglobin Concent 33.4, Red Cell Distribution Width 13.9, Neutrophils (%) (Auto) 82.3 H, Lymphocytes (%) (Auto) 7.2 L, Monocytes (%) (Auto) 8.0 H, Eosinophils (%) (Auto) 1.1, Basophils (%) ( Auto) 0.4, Neutrophils # (Auto) 11.4 H, Lymphocytes # (Auto) 1.1 L, Monocytes # (Auto) 1.1 H, Eosinophils # (Auto) 0.2, Basophils # (Auto) 0.0 06/01/17 00:40 06/01/17 05:28 Red Blood Count 3.83 L, Mean Corpuscular Volume 87.6, Mean Corpuscular Hemoglobin 29.1, Mean Corpuscular Hemoglobin Concent 33.2, Red Cell Distribution Width 13.8, Neutrophils (%) (Auto) 82.8 H, Lymphocytes (%) (Auto) 7.5 L, Monocytes (%) (Auto) 7.4 H, Eosinophils (%) (Auto) 0.6, Basophils (%) ( Auto) 0.2, Neutrophils # (Auto) 14.1 H, Lymphocytes # (Auto) 1.5, Monocytes # ( Auto) 1.3 H, Eosinophils # (Auto) 0.1, Basophils # (Auto) 0.0, Calcium Level 8.8 Microbiology Microbiology 05/31/17 Blood Culture - Preliminary, Resulted 05/31/17 Blood Culture - Preliminary, Resulted 05/31/17 Urine Culture, Received Pending JOLLY DICKINSON MD Jun 01, 2017 11:48
[2017-06-01 12:00] VITALS: BP 186/97
[2017-06-01] MEDS: VANCOMYCIN HCL 1,000 MG, VIAL MATE ADAPTER 1 EACH in D5W 250 ML IV SCH ×2 (12:18→21:23)
[2017-06-01] MEDS: POTASSIUM CHLORIDE 10 MEQ SR TABLET PO SCH (12:18)
[2017-06-01] MEDS: NS 1,000 ML IV SCH (12:18)
[2017-06-01] MEDS: PERCOCET 5MG/325MG TAB PO PRN ×2 (12:37→20:02)
[2017-06-01] MEDS: ONDANSETRON 4 MG TAB (S0181) PO PRN (12:44)
--- NOTE | 2017-06-01 13:47 | PHACANCOPD ---
PHARMACY VANCOMYCIN DOSING Pt Demographics Demographics Patient Age:47 , Weight:61.500 , Gender: female Adjusted Body Weight Date: 06/01/17, Adjusted Body Weight: Kg Events Past 24 Hours Events Past 24 Hours: YES: Fever, Elevation in WBC, Pending Procedures, NO: Dialysis, Diuretic Therapy, Change in CrCl, Pending Diagnostics, Other Vancomycin Vancomycin indication: psoas abscess Vancomycin Target Ranges: 15-20 mcg/ml Vancomycin Load Y/N: Yes Load Dose Date Time Vancomycin Load Dose: 2g Date: 06/01 Time: ~13:00 Vancomycin Dose Date: 06/01/17. Current Vancomycin Dose: [1g IV q8h @21] Intermittent Dosing?: No Labs Labs Item Value Date Time White Blood Count 13.8 K/mm3 H 05/31/17 1235 White Blood Count 17.0 K/mm3 H 06/01/17 0528 Creatinine 0.48 MG/DL L 05/31/17 1235 Creatinine 0.58 MG/DL 06/01/17 0528 C-Reactive Protein, Quantitative 21.40 MG/DL H 05/31/17 1235 Vital Signs Label Value Date Time Patient Temperature 100.7 degrees F 05/31/17 2359 Temperature Source Temporal 05/31/17 2359 Patient Temperature 99.3 degrees F 06/01/17 0445 Temperature Source Temporal 06/01/17 0445 Patient Temperature 101.3 degrees F 05/31/17 2115 Temperature Source Temporal 05/31/17 2115 Micro Microbiology 05/31/17 Blood Culture - Preliminary, Resulted 05/31/17 Blood Culture - Preliminary, Resulted 05/31/17 Urine Culture, Received Pending Creatinine Clearance Date:06/01/17. Creatinine Clearance: [>100 ml/min]. Assessment and Plan Maintaining Current Dose?: Yes Reason for dose change: No Dose Change Pharmacist Note Pharmacist Note Date: 06/01/17. Pharmacist note: pt was admitted yesterday for a psoas abscess. She was previously here in February for similar reasons, cultures grew MSSA and she was treated with Ancef 2g x6 weeks. Current blood cultures are preliminary positive for g+ cocci in clusters (2/). She was previously on vancomycin in February, I have resumed similar dosing with an increased loading dose. I will continue to monitor cultures and follow up with a trough as necessary. Sam Ugalde Pharm.D. Jun 01, 2017 13:47
[2017-06-01] MEDS ORDERED: VANCOMYCIN HCL 1,000 MG, VIAL MATE ADAPTER 1 EACH in D5W 250 ML IV ONE (14:00)
[2017-06-01] MEDS ORDERED: LIDOCAINE 1% MDV 20ML VIAL As Ordered ONE (14:17)
--- NOTE | 2017-06-01 18:39 | REP ---
ULTRASOUND GUIDED ABSCESS DRAIN: The procedure was performed under the direct supervision of Dr. Ingram. The patient has a history of a new abscess in the right psoas muscle as well as the right posterior paravertebral soft tissue seen on a previous MRI dated 05/31/2017. The risks and benefits of the procedure were explained to the patient and informed consent was obtained. The right psoas and right paravertebral abscesses were localized using ultrasound guidance. The skin was prepped and draped in a sterile fashion. The right psoas abscess was addressed first. 1% Lidocaine was used as a local anesthetic. Using ultrasound guidance an 18 gauge needle was inserted and advanced into the abscess. 10 mL of beige colored fluid was withdrawn and sent to the lab. The right paravertebral abscess was then addressed. 1% Xylocaine was used as a local anesthetic. Using ultrasound guidance a 5-Gabonese skater centesis catheter was inserted. 7 mL of beige/red colored fluid was withdrawn and sent to the lab. The patient tolerated the procedure well and there were no immediate complications. Reviewed by TRACEY Wagoner 06/04/2017 04:33 PEdited and Signed by Basim Ingram MD 06/04/2017 04:41 P
[2017-06-01 20:00] VITALS: BP 166/108
[2017-06-01] MEDS: traZODone 100 MG TAB PO SCH (21:23)
[2017-06-01 23:59] VITALS: BP 116/75
[2017-06-02] VITALS (7 sets, daily range): BP systolic 122–138; BP diastolic 79–92
[2017-06-02] MEDS: ACETAMINOPHEN TAB 650MG DOSE (2X325MG) PO PRN ×3 (03:39→21:45)
[2017-06-02] MEDS: VANCOMYCIN HCL 1,000 MG, VIAL MATE ADAPTER 1 EACH in D5W 250 ML IV SCH ×3 (04:47→21:00)
--- NOTE | 2017-06-02 05:15 | CR ---
DATE OF CONSULTATION: 06/01/2017 I was asked to consult by the hospitalist and Dr. Hernández for evaluation of psoas abscess. HISTORY OF PRESENT ILLNESS: Ms. Cardona is a 47-year-old female with a history of intravenous (IV) drug use. Last use was about 4 months ago after she developed diskitis and was admitted to the hospital with methicillin-susceptible Staphylococcus aureus (MSSA) diskitis on 02/16 and discharged on 02/27. The patient had a peripherally inserted central catheter (PICC) line and did very well. The PICC line was removed on 04/06 and the patient was cured from the diskitis. She rescheduled 3-4 appointments with me and her primary care provider and we had some concern about her lack of appointments. She was doing well until 3 days prior to admission when she developed fever up to 101, headache above her left eye, throbbing pain down her right buttock into her right leg with numbness of the anterior thigh. She had one episode of incontinence which she felt was related to the fact that she could not make it to the bathroom in time. She now does not have any incontinence or trouble with bowel movement. She had some nausea with narcotics, some shortness of breath. She stated she thinks shortness of breath is related to anxiety. She has no cough, pleuritic chest pain. The pain mostly is localized to the right hip. She denies adamantly using IV drugs again. She had an order of protection against her , who came to her house, moved back from [place] after he had been living with his brother. Because of the joint custody with their son, he had to be in the area. He is using drugs again himself. PAST MEDICAL HISTORY: Significant for: 1. Chronic hepatitis C genotype 3, not currently treated because she no-showed to so many appointments. 2. Depression. 3. History of IV drug use in remission. ALLERGIES: ERYHTROMYCIN, IODINE, PENICILLIN, BEE VENOM, SEAFOOD. She tolerated cefazolin. FAMILY HISTORY: Nonrevealing. SOCIAL HISTORY: She denies any smoking, alcohol use. She is an IV drug user including cocaine and methamphetamine. REVIEW OF SYSTEMS: She had fevers and chills, fatigue and weakness. She had right hip pain. She denied any chest pain or palpitations. She had transient shortness of breath. No nausea, vomiting or diarrhea. No abdominal pain. She has normal bowel movements and has not had any recurrent urinary symptoms. She has no dysuria. Vital signs: Temperature is 101.3, pulse 98, respirations 18, blood pressure 163/96, oxygen saturation 97% on room air. Healthy looking female in no acute distress. Heart: Normal S1, S2. No murmurs, rubs or gallops. Lungs are clear. No wheezes, rales or rhonchi. Back: Tender in the right lower hip area. Moves pretty well. There is no mid spinal tenderness. Moves all extremities pretty well. She does have pain with hip flexion. There are no obvious tracts of IV use. LABORATORY DATA: White count is 17, hemoglobin 11.2, hematocrit 33.6, platelets 392, 82% neutrophils, 7% lymphocytes, 7% monocytes. Sodium 135, potassium 3.4, chloride 98, bicarbonate 30, BUN 0.6, glucose 134, CRP 21.4, iron 11, TIBC 249, iron saturation 4.4, AST 9, ALT 23. Urine drug screen was negative. Blood cultures two sets are positive for gram-positive cocci in clusters. Drained from the right psoas abscess is pending. Gram stain and culture were sent on two different sites. Abscess drainage was done by Dr. Ingram today. MRI of the lumbar spine done with and without IV contrast showed diskitis, osteomyelitis at L3-L4 which has decreased from previous MRI 3 months ago, but there are new abscesses in the right psoas area, right posterior paravertebral soft tissue from L1 all the way to L4-L5. A small right intraforaminal and epidural abscess is present at L2-3. There is minimal compression of the thecal sac. MEDICATIONS: - cefazolin 2 grams IV every 8 hours - trazodone 100 mg by mouth nightly - probiotics one tablet by mouth twice a day - Tylenol as needed - morphine as needed - potassium chloride 20 mEq by mouth daily - ascorbic acid 500 mg daily - Percocet one tablet every six as needed - Zofran as needed - Cymbalta 60 mg by mouth daily IMPRESSION: Ashwini is a 47-year-old female with a previous history of intravenous (IV) drug use. Reports last use over 4 months ago. Previous treatments of diskitis at L3-L4, methicillin-susceptible Staphylococcus aureus (MSSA) from 02/16 until 04/06. Total of 6 weeks. At that point, her C-reactive protein (CRP) and inflammatory markers were normal. The patient presents with recurrent symptoms now with psoas abscess in spite of negative drug use per history and drug screen being negative. This is 2 months later recurrences, which could be new infection versus just a small nidus of infection that could be brewing, although less likely. PLAN: Continue IV cefazolin 2 grams every 8 hours. This is most likely MSSA. In the meantime, will add methicillin-resistant Staphylococcus aureus (MRSA) coverage with vancomycin 1 gram IV every 8 hours until susceptibilities are available. If MSSA, please discontinue vancomycin. Repeat blood cultures tomorrow. Schedule peripherally inserted central catheter (PICC) line on Sunday. Consult patient and family services (PFS) regarding her possible relapse with drug use, although the patient has been followed up with psychiatry at [facility] in [facility] and she adamantly denies it. She will need again 6 weeks of IV antibiotics. Schedule echocardiogram to rule out endocarditis.
[2017-06-02 05:26] LABS: BASO % 0.3 % (0.0-1.0); EOS # 0.3 K/mm3 (0.0-0.50); EOS % 1.8 % (0.0-3.0); LARGE UNSTAINED CELL # 0.2 K/mm3 (0.0-0.4); LARGE UNSTAINED CELL % 1.5 % (0.0-4.0); LYMPH # 0.8 K/mm3 (1.5-4.5); LYMPH % 4.9 % (24.0-44.0); MEAN CORPUSCULAR HEMOGLOBIN 29.6 pg (27.0-33.0); MEAN CORPUSCULAR HGB CONC 33.7 g/dl (32.0-36.5); MEAN CORPUSCULAR VOLUME 87.7 fl (80.0-96.0); MONO # 1.1 K/mm3 (0.0-0.8); MONO % 6.9 % (0.0-5.0); NEUTROPHILS # 12.9 K/mm3 (1.8-7.7); NEUTROPHILS % 84.5 % (36.0-66.0); PLATELET COUNT, AUTOMATED 432 k/mm3 (150-450); RED CELL DISTRIBUTION WIDTH 13.6 % (11.5-14.5); WHITE BLOOD COUNT 15.2 K/mm3 (4.0-10.0)
[2017-06-02 05:44] LABS: ANION GAP 8 MEQ/L (8-16); BLOOD UREA NITROGEN 5 MG/DL (7-18); CALCIUM LEVEL 8.8 MG/DL (8.5-10.1); CARBON DIOXIDE LEVEL 29 MEQ/L (21-32); CHLORIDE LEVEL 97 MEQ/L (98-107); CREATININE FOR GFR 0.63 MG/DL (0.55-1.02); GLOMERULAR FILTRATION RATE > 60.0 (>58); GLUCOSE, FASTING 142 MG/DL (70-105); POTASSIUM SERUM 3.2 MEQ/L (3.5-5.1); SODIUM LEVEL 134 MEQ/L (136-145)
[2017-06-02] MEDS: PERCOCET 5MG/325MG TAB PO PRN ×2 (07:44→16:59)
--- NOTE | 2017-06-02 08:30 | ECHO ---
DATE OF PROCEDURE: 06/01/2017 REFERRING PROVIDER: Dr. Lisa Brown PATIENT LOCATION: Room 3217 REASON FOR THE ECHOCARDIOGRAM: Intravenous drug user. 2D MEASUREMENTS: IVS: 1.1 cm LV: 3.7 cm LVPW: 1.2 cm LA: 2.9 cm Aorta: 3.4 cm DOPPLER MEASUREMENTS: Peak velocity across the aortic valve: 1.9 m/s Peak velocity across the LVOT: 1.4 m/s Mitral E: 0.85, Mitral A: 1.1 with a ratio of 0.8 Tricuspid valve velocity: 1.7 m/s 2D COMMENTS: 1. Normal left ventricular size, wall thickness, and normal global left ventricular systolic ejection fraction estimated at 60-65%. 2. Normal left atrium. Normal right atrium and right ventricle. 3. There was increased mobility noted at the level of the atrial septum,could not rule out an associated patent foramen ovale (PFO). 4. Normal aortic root. 5. Trace pericardial effusion noted. No evidence of cardiac tamponade. 6. There was an echogenic structure/calcification noted on the aortic valve with minimally restricted leaflet motion. Normal mitral valve and tricuspid valve as well as the pulmonic valve. The proximal pulmonary artery branches were not well visualized. 7. The inferior vena cava was normal in size, central venous pressure is most likely normal. DOPPLER: It detects trace aortic regurgitation, trace to mild mitral regurgitation, and trace tricuspid regurgitation. The calculated pulmonary artery systolic pressure was normal. Abnormal relaxation pattern was noted across the mitral valve leaflets. IMPRESSION: 1. Normal global left ventricular systolic function. There are some features of left ventricular diastolic dysfunction manifested by abnormal relaxation. 2. Aortic valve sclerosis with trace aortic regurgitation and trivial aortic stenosis. Could not rule out old vegetation on the aortic valve. In view of her history, to consider a transesophageal echocardiogram. 3. Trace to mild mitral regurgitation. 4. Trace tricuspid regurgitation with a normal calculated pulmonary artery systolic pressure. 5. Trace pericardial effusion. No evidence of cardiac tamponade. 6. Atrial septal aneurysm with possible patent foramen ovale. Once again, to consider a transesophageal echocardiogram. [facility]
[2017-06-02] MEDS: LACTOBACILLUS ACIDOPHILUS CAP (BACID) PO SCH ×2 (08:53→21:00)
[2017-06-02] MEDS: DULoxetine 30 MG CAP (CYMBALTA) PO SCH (08:54)
[2017-06-02] MEDS: POTASSIUM CHLORIDE 10 MEQ SR TABLET PO SCH ×2 (08:54→21:00)
[2017-06-02] MEDS: ASCORBIC ACID 500 MG TAB PO SCH (08:54)
[2017-06-02] MEDS: MORPHINE 2 MG/ML 1ML SYRINGE IV PRN ×3 (08:56→21:01)
--- NOTE | 2017-06-02 14:18 | IPNPDOC ---
Subjective Date Seen The patient was seen on 06/02/17. Subjective Chief Complaint/HPI The patient is a 47-year-old female admitted with a reason for visit of Psoas Abscess. Constitutional: Denies: Chills, Fever Eyes: Reports: Pain (R paralumbar radiating to R anterior thight) ENT: Reports: Head Aches (frontal s radiation/weakness/visual changes) Skin: Denies: Rash Pulmonary: Denies: Dyspnea Cardiovascular: Denies: Chest Pain Gastrointestinal: Denies: Nausea Genitourinary: Denies: Dysuria Neurological: Denies: Weakness, Numbness Psych: Reports: Mood Normal Objective Physical Examination General Exam: Positive: Alert, Cooperative, Moderate Distress Eye Exam: Positive: PERRLA ENT Exam: Positive: Atraumatic, Mucous membr. moist/pink, Pharynx Normal Neck Exam: Positive: Supple, Negative: JVD Chest Exam: Positive: Clear to auscultation, Normal air movement, Negative: Rales, Rhonchi, Wheezing Heart Exam: Positive: Rate Normal, Regular Rhythm, Normal S1, Normal S2 Telemetry: Positive: No significant arrhythmia Abdomen Exam: Positive: Normal bowel sounds, Soft, Negative: Tenderness, Hepatospenomegaly Extremity Exam: Positive: Normal pulses, Tenderness (right hip and low back lumbar spine), Negative: Clubbing, Cyanosis, Edema, Swelling Skin Exam: Negative: Rash, Breakdown Neuro Exam: Positive: Normal Speech Psych Exam: Positive: Mental status NL Assessment /Plan Problems (1) Staphylococcus aureus sepsis Status: Acute Response to Treatment: Stable Problem Text: favor R psoas abscess source D2 vanco/cefazolin 06/02 WBC 15.2 (17.0), Tmax 100 06/01 2000, check CT head given persistent frontal BRADY s neuro deficits if MSSA, plan repeat 6W cefazolin (holding vanco) via PICC to place on 06/04 if - repeat BCX 06/02/17 BCX P 05/31/17 BCX 2/2 S. aureus 06/01/17 TTE-Dr. Valle: IMPRESSION: 1. Normal global left ventricular systolic function. There are some features of left ventricular diastolic dysfunction manifested by abnormal relaxation. 2. Aortic valve sclerosis with trace aortic regurgitation and trivial aortic stenosis. Could not rule out old vegetation on the aortic valve. In view of her history, to consider a transesophageal echocardiogram. 3. Trace to mild mitral regurgitation. 4. Trace tricuspid regurgitation with a normal calculated pulmonary artery systolic pressure. 5. Trace pericardial effusion. No evidence of cardiac tamponade. 6. Atrial septal aneurysm with possible patent foramen ovale. Once again, to consider a transesophageal echocardiogram. plan d/w Antecol on 06/04 appreciate XAVIER/Betty input (2) Discitis Status: Acute Response to Treatment: Stable Problem Text: 01/2017h/o L3/4 MSSA diskitis admitted on 02/16 and discharged on 02/27/17 The patient had a peripherally inserted central catheter (PICC) line The PICC line was removed on 04/06 and the patient was cured from the diskitis. 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 There is decreased enhancement of the L3 and L4 vertebral bodies and L3-4 intervertebral disc. There are new abscesses in the right psoas muscle and right posterior paravertebral soft tissue extending from the L1-2 level inferior to the L4-5 level. A small right intraforaminal and epidural abscess is present at the L2-3 level. There is minimal compression of the thecal sac. (3) Psoas abscess Status: Acute Response to Treatment: Stable Problem Text: 06/02/17 recurrent R paralumbar pain radiating to R anterior thigh , similar to [id number] need to repeat MRI to r/o reaccumulation 06/01/17 R psoas abscess drainage per IR 06/01/17 WCX 2/2 S. aureus consult PFS ? recurrent IV drug use (4) Anemia Status: Acute Problem Text: H/H 9.7/29.1 upon admission; Hgb improved to 11.4 today without intervention, which is consistent with her baseline - Iron studies are consistent with iron deficiency - Occult stool is pending (5) Diarrhea Status: Acute Response to Treatment: Stable Problem Text: Continue IV fluids as pt. has had decreased oral intake due to pain and nausea 06/02 GI pane lordered 05/31 C diff PCR ordered Continue Bacid (6) Hypokalemia Response to Treatment: Stable Problem Text: 06/02 back down to 3.2 on 20; therefore, increased to 40 BID (7) Anxiety Status: Chronic Response to Treatment: Stable Problem Text: continue to monitor stable (8) History of substance use Status: Chronic Response to Treatment: Stable Problem Text: 05/31/17 -UDS on admission consult PFS ? recurrent IV drug use (9) DVT prophylaxis Status: Acute Response to Treatment: Stable Problem Text: SCD TEDS (10) UTI (urinary tract infection) Status: Acute Response to Treatment: Stable Problem Text: rx as per sepsis 05/31/17 UCX E. coli >100K-pansensitive Plan/VTE VTE Prophylaxis Ordered?: Yes VS, I&O, 24H, Fishbone Vital Signs/I&O Vital Signs Date Time Temp Pulse Resp B/P (MAP) Pulse Ox O2 Delivery O2 Flow Rate FiO2 06/02/17 13:25 98.4 94 18 122/80 (94) 96 Room Air I&O- Last 24 Hours up to 6 AM 06/02/17 06:00 Intake Total 3090 ml Output Total 2100 ml Balance 990 ml Laboratory Data 24H LABS Laboratory Tests 2 06/02/17 05:16: White Blood Count 15.2H, Red Blood Count 3.91L, Hemoglobin 11.6L, Hematocrit 34.3L, Mean Corpuscular Volume 87.7, Mean Corpuscular Hemoglobin 29.6, Mean Corpuscular Hemoglobin Concent 33.7, Red Cell Distribution Width 13.6, Platelet Count 432, Neutrophils (%) (Auto) 84.5H, Lymphocytes (%) (Auto) 4.9L, Monocytes (%) (Auto) 6.9H, Eosinophils (%) (Auto) 1.8, Basophils (%) (Auto) 0.3, Neutrophils # (Auto) 12.9H, Lymphocytes # (Auto) 0.8L, Monocytes # (Auto) 1.1H, Eosinophils # (Auto) 0.3, Basophils # (Auto) 0.0, Large Unclassified Cells % 1.5 , Large Unclassified Cells # 0.2, Anion Gap 8, Glomerular Filtration Rate > 60.0 , Blood Urea Nitrogen 5L, Creatinine 0.63, Sodium Level 134L, Potassium Level 3.2L, Chloride Level 97L, Carbon Dioxide Level 29, Calcium Level 8.8 CBC/BMP Laboratory Tests 06/02/17 05:16 Red Blood Count 3.91 L, Mean Corpuscular Volume 87.7, Mean Corpuscular Hemoglobin 29.6, Mean Corpuscular Hemoglobin Concent 33.7, Red Cell Distribution Width 13.6, Neutrophils (%) (Auto) 84.5 H, Lymphocytes (%) (Auto) 4.9 L, Monocytes (%) (Auto) 6.9 H, Eosinophils (%) (Auto) 1.8, Basophils (%) ( Auto) 0.3, Neutrophils # (Auto) 12.9 H, Lymphocytes # (Auto) 0.8 L, Monocytes # (Auto) 1.1 H, Eosinophils # (Auto) 0.3, Basophils # (Auto) 0.0, Calcium Level 8.8 Microbiology Microbiology 06/02/17 Blood Culture, Received Pending 05/31/17 Blood Culture - Preliminary, Resulted Staphylococcus Aureus 05/31/17 Blood Culture - Preliminary, Resulted Staphylococcus Aureus 06/01/17 Anaerobic Culture, Received Pending 06/01/17 Anaerobic Culture, Received Pending 05/31/17 Urine Culture - Final, Complete Escherichia Coli 06/01/17 Gram Stain - Final, Resulted 06/01/17 Abscess Culture - Preliminary, Resulted Staphylococcus Aureus 06/01/17 Gram Stain - Final, Resulted 06/01/17 Abscess Culture - Preliminary, Resulted Staphylococcus Aureus Kiran Cantrell M.D. Jun 02, 2017 14:18
--- NOTE | 2017-06-02 15:39 | REP ---
CT Head without contrast HISTORY: Headache COMPARISON: 10/07/2016 There is no intraparenchymal hemorrhage, acute infarct, mass or midline shift. The ventricular system is normal in appearance. There is no extra cerebral collection. There is no fracture. The visualized sinuses are clear. IMPRESSION: There is no intracranial lesion. Signed by Filiberto Graves MD 06/02/2017 03:31 P
[2017-06-02] MEDS: NS 1,000 ML IV SCH (16:59)
[2017-06-02] MEDS: traZODone 100 MG TAB PO SCH (21:00)
[2017-06-02] MEDS ORDERED: CALCIUM CARBONATE 500 MG CHEW U/D PO PRN (21:45)
[2017-06-03] MEDS: PERCOCET 5MG/325MG TAB PO PRN ×4 (00:17→23:25)
[2017-06-03] MEDS: MORPHINE 2 MG/ML 1ML SYRINGE IV PRN ×5 (02:00→21:44)
[2017-06-03] MEDS: VANCOMYCIN HCL 1,000 MG, VIAL MATE ADAPTER 1 EACH in D5W 250 ML IV SCH (04:37)
[2017-06-03] MEDS: ACETAMINOPHEN TAB 650MG DOSE (2X325MG) PO PRN (04:37)
[2017-06-03 04:50] LABS: BASO % 0.3 % (0.0-1.0); EOS # 0.3 K/mm3 (0.0-0.50); EOS % 2.1 % (0.0-3.0); LARGE UNSTAINED CELL # 0.2 K/mm3 (0.0-0.4); LYMPH # 1.2 K/mm3 (1.5-4.5); LYMPH % 6.7 % (24.0-44.0); MEAN CORPUSCULAR HEMOGLOBIN 29.1 pg (27.0-33.0); MEAN CORPUSCULAR HGB CONC 32.9 g/dl (32.0-36.5); MEAN CORPUSCULAR VOLUME 88.3 fl (80.0-96.0); MONO % 6.6 % (0.0-5.0); NEUTROPHILS # 12.3 K/mm3 (1.8-7.7); NEUTROPHILS % 83.2 % (36.0-66.0); PLATELET COUNT, AUTOMATED 444 k/mm3 (150-450); WHITE BLOOD COUNT 14.8 K/mm3 (4.0-10.0)
[2017-06-03 05:04] LABS: ANION GAP 5 MEQ/L (8-16); BLOOD UREA NITROGEN 4 MG/DL (7-18); CALCIUM LEVEL 8.4 MG/DL (8.5-10.1); CARBON DIOXIDE LEVEL 31 MEQ/L (21-32); CHLORIDE LEVEL 101 MEQ/L (98-107); CREATININE FOR GFR 0.53 MG/DL (0.55-1.02); GLOMERULAR FILTRATION RATE > 60.0 (>58); GLUCOSE, FASTING 121 MG/DL (70-105); POTASSIUM SERUM 3.8 MEQ/L (3.5-5.1); SODIUM LEVEL 137 MEQ/L (136-145)
[2017-06-03 05:43] LABS: ERYTHROCYTE SEDIMENTATION RATE 73 mm/hr (0-20)
[2017-06-03 06:00] VITALS: BP 131/85
[2017-06-03] MEDS: NS 1,000 ML IV SCH ×2 (06:15→21:30)
[2017-06-03] MEDS ORDERED: KETOROLAC 30 MG/ML VIAL (J1885) IV ONE (08:00)
[2017-06-03] MEDS ORDERED: MORPHINE 2 MG/ML 1ML SYRINGE IV ONE (08:00)
[2017-06-03] MEDS: DULoxetine 30 MG CAP (CYMBALTA) PO SCH (08:44)
[2017-06-03] MEDS: ASCORBIC ACID 500 MG TAB PO SCH (08:44)
[2017-06-03] MEDS: POTASSIUM CHLORIDE 10 MEQ SR TABLET PO SCH ×2 (08:44→20:24)
[2017-06-03] MEDS: LACTOBACILLUS ACIDOPHILUS CAP (BACID) PO SCH ×2 (08:44→20:24)
[2017-06-03] MEDS: ONDANSETRON 4 MG TAB (S0181) PO PRN (11:51)
--- NOTE | 2017-06-03 13:48 | IPNPDOC ---
Subjective Date Seen The patient was seen on 06/03/17. Subjective Chief Complaint/HPI The patient is a 47-year-old female admitted with a reason for visit of Psoas Abscess. Eyes: Reports: Pain (R lower paralumbar buttock c radiation to R anterior thigh ) ENT: Denies: Head Aches Skin: Denies: Rash Pulmonary: Denies: Dyspnea Cardiovascular: Denies: Chest Pain Gastrointestinal: Denies: Nausea, Vomiting Genitourinary: Denies: Dysuria Neurological: Reports: Numbness (since ~8 AM 06/03 new onset R anterior numbness s weakness) Objective Physical Examination General Exam: Positive: Alert, Cooperative, Moderate Distress Eye Exam: Positive: PERRLA ENT Exam: Positive: Atraumatic, Mucous membr. moist/pink, Pharynx Normal Neck Exam: Positive: Supple, Negative: JVD Chest Exam: Positive: Clear to auscultation, Normal air movement, Negative: Rales, Rhonchi, Wheezing Heart Exam: Positive: Rate Normal, Regular Rhythm, Normal S1, Normal S2 Telemetry: Positive: No significant arrhythmia Abdomen Exam: Positive: Normal bowel sounds, Soft, Negative: Tenderness, Hepatospenomegaly Extremity Exam: Positive: Normal pulses, Tenderness (right hip and low back lumbar spine), Negative: Clubbing, Cyanosis, Edema, Swelling Skin Exam: Negative: Rash, Breakdown Neuro Exam: Positive: Normal Gait, Normal Speech, Strength at 5/5 X4 ext, Reflexes 2+ (bilateral 2/4 knee/Achilles jerk), Negative: Sensation Intact (decreased pain sensation R anterior thigh) Psych Exam: Positive: Mental status NL Assessment /Plan Problems (1) Psoas abscess Status: Acute Response to Treatment: Stable Problem Text: 06/03 given MSO4 4 (up from 2 q3H) and ketorolac 30 IV x 1 secondary to increased pain/R anterior thigh numbness (patient reports ketorolac worked best), given worsening pain/numbness-favor STAT MRI s/c andrew LS spine/pelvis R buttock, case d/w Dr. Adair and Dr. [facility] who agree c repeat imaging (obvious concern given 05/31 MRI c right L2/3 intraforaminal and epidural abscess c thecal sac compression) 06/02/17 recurrent R paralumbar pain radiating to R anterior thigh, similar to [id number] need to repeat MRI to r/o reaccumulation 06/01/17 R psoas abscess drainage of 7 cc fluid by IR 06/01/17 WCX 2/2 S. aureus consult PFS ? recurrent IV drug use (2) Staphylococcus aureus sepsis Status: Acute Response to Treatment: Stable Problem Text: favor R psoas abscess source D3/42 cefazolin-plan repeat 6W cefazolin (holding vanco) via PICC to place 06/03 14.8, CRP 15/ESR 73, afebrile; D3 vanco held 2 BCX c MSSA 06/02 WBC 15.2 (17.0), Tmax 100 06/01 2000, check CT head given persistent frontal BRADY s neuro deficits 05/31 CRP 21/ESR 63 06/03/17 BCX P 06/02/17 BCX NG 05/31/17 BCX 2/2 MSSA 06/01/17 TTE- Leonard: IMPRESSION: 1. Normal global left ventricular systolic function. There are some features of left ventricular diastolic dysfunction manifested by abnormal relaxation. 2. Aortic valve sclerosis with trace aortic regurgitation and trivial aortic stenosis. Could not rule out old vegetation on the aortic valve. In view of her history, to consider a transesophageal echocardiogram. 3. Trace to mild mitral regurgitation. 4. Trace tricuspid regurgitation with a normal calculated pulmonary artery systolic pressure. 5. Trace pericardial effusion. No evidence of cardiac tamponade. 6. Atrial septal aneurysm with possible patent foramen ovale. Once again, to consider a transesophageal echocardiogram. plan d/w Antecol on 06/04 appreciate ID/Betty input (3) Discitis Status: Acute Response to Treatment: Stable Problem Text: rx as per sepsis/psoas abscess history of L3/4 MSSA diskitis admitted on 02/16 and discharged on 02/27/17 The patient had a peripherally inserted central catheter (PICC) line The PICC line was removed on 04/06 and the patient was cured from the diskitis. 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 There is decreased enhancement of the L3 and L4 vertebral bodies and L3-4 intervertebral disc. There are new abscesses in the right psoas muscle and right posterior paravertebral soft tissue extending from the L1-2 level inferior to the L4-5 level. A small right intraforaminal and epidural abscess is present at the L2-3 level. There is minimal compression of the thecal sac. (4) Anemia Status: Acute Problem Text: H/H 9.7/29.1 upon admission; Hgb improved to 11.4 today without intervention, which is consistent with her baseline - Iron studies are consistent with iron deficiency - Occult stool is pending (5) Diarrhea Status: Acute Response to Treatment: Stable Problem Text: no BM since admission-prior to admission diarrhea taking adequate po; therefore, 06/03 SLIV 06/03 + Ducolax supp (patient states usually works best for her) (6) Hypokalemia Response to Treatment: Stable Problem Text: favor 2 diarrhea 06/03 3.8 on 40 BID/ Mg 2.0 06/02 back down to 3.2 on 20; therefore, increased to 40 BID (7) Anxiety Status: Chronic Response to Treatment: Stable Problem Text: continue to monitor stable (8) History of substance use Status: Chronic Response to Treatment: Stable Problem Text: 05/31/17 -UDS on admission consult PFS ? recurrent IV drug use (9) DVT prophylaxis Status: Acute Response to Treatment: Stable Problem Text: SCD TEDS (10) UTI (urinary tract infection) Status: Acute Response to Treatment: Stable Problem Text: rx as per sepsis 05/31/17 UCX E. coli >100K-pansensitive Plan/VTE VTE Prophylaxis Ordered?: Yes VS, I&O, 24H, Fishbone Vital Signs/I&O Vital Signs Date Time Temp Pulse Resp B/P (MAP) Pulse Ox O2 Delivery O2 Flow Rate FiO2 06/03/17 12:01 18 06/03/17 07:49 Room Air 06/03/17 06:00 97.8 97 131/85 (100) 97 I&O- Last 24 Hours up to 6 AM 06/03/17 06:00 Intake Total 3625 ml Output Total 1150 ml Balance 2475 ml Laboratory Data 24H LABS Laboratory Tests 2 06/03/17 04:02: White Blood Count 14.8H, Red Blood Count 3.67L, Hemoglobin 10.7L, Hematocrit 32.4L, Mean Corpuscular Volume 88.3, Mean Corpuscular Hemoglobin 29.1, Mean Corpuscular Hemoglobin Concent 32.9, Red Cell Distribution Width 14.0, Platelet Count 444, Neutrophils (%) (Auto) 83.2H, Lymphocytes (%) (Auto) 6.7L, Monocytes (%) (Auto) 6.6H, Eosinophils (%) (Auto) 2.1, Basophils (%) (Auto) 0.3, Neutrophils # (Auto) 12.3H, Lymphocytes # (Auto) 1.2L, Monocytes # (Auto) 1.0H, Eosinophils # (Auto) 0.3, Basophils # (Auto) 0.0, Large Unclassified Cells % 1.0 , Large Unclassified Cells # 0.2, Erythrocyte Sedimentation Rate 73H, Anion Gap 5L, Glomerular Filtration Rate > 60.0, Blood Urea Nitrogen 4L, Creatinine 0.53L , Sodium Level 137, Potassium Level 3.8, Chloride Level 101, Carbon Dioxide Level 31, Calcium Level 8.4L, Magnesium Level 2.0, C-Reactive Protein, Quantitative 15.40H, Vancomycin Level Trough 12.4 CBC/BMP Laboratory Tests 06/03/17 04:02 Red Blood Count 3.67 L, Mean Corpuscular Volume 88.3, Mean Corpuscular Hemoglobin 29.1, Mean Corpuscular Hemoglobin Concent 32.9, Red Cell Distribution Width 14.0, Neutrophils (%) (Auto) 83.2 H, Lymphocytes (%) (Auto) 6.7 L, Monocytes (%) (Auto) 6.6 H, Eosinophils (%) (Auto) 2.1, Basophils (%) ( Auto) 0.3, Neutrophils # (Auto) 12.3 H, Lymphocytes # (Auto) 1.2 L, Monocytes # (Auto) 1.0 H, Eosinophils # (Auto) 0.3, Basophils # (Auto) 0.0, Calcium Level 8.4 L Microbiology Microbiology 06/03/17 Blood Culture, Received Pending 06/02/17 Blood Culture - Preliminary, Resulted No growth after 24 hours . All specim... 05/31/17 Blood Culture - Final, Complete Staphylococcus Aureus 05/31/17 Blood Culture - Final, Complete Staphylococcus Aureus 06/01/17 Anaerobic Culture - Final, Complete 06/01/17 Anaerobic Culture - Final, Complete 05/31/17 Urine Culture - Final, Complete Escherichia Coli 06/01/17 Gram Stain - Final, Complete 06/01/17 Abscess Culture - Final, Complete Staphylococcus Aureus 7/14/17 Gram Stain - Final, Complete 06/01/17 Abscess Culture - Final, Complete Staphylococcus Aureus Kiran Cantrell M.D. Jun 03, 2017 13:48
[2017-06-03 14:00] VITALS: BP 140/88
[2017-06-03] MEDS: KETOROLAC 30 MG/ML VIAL (J1885) IV SCH ×2 (14:40→20:25)
[2017-06-03] MEDS: BISACODYL 10 MG SUPP PR PRN (14:41)
--- NOTE | 2017-06-03 18:10 | REPUSA ---
HISTORY: HX PSOAS ABSCESS, NEW RT ANTERIOR THIGH NUMBNESS, ATTN RT BUTTUCK. KNOWN PSOAS ABSCESS. PEL VIS PERFORMED TO EVALUATE RT BUTTOCK. Comparison is made to the previous MRA examination of lumbosac ral spine dated 05/31/17. TECHNIQUE: Multisequence, multiplanar MRI imaging of pelvis with and without intravenous contrast. FINDINGS: There is no evidence of bone fracture or marrow abnormality seen in the pelvis and no imagi ng evidence of osteomyelitis. There is contrast enhancement, with multiple necrotic abscess fluid collections seen bilaterally in t he right psoas muscle, right erector spinae muscle, and bilateral multifidus muscles at the posterior lower lumbar spine. There is no abscess involvement of the gluteus ina muscle, or left psoas mu scle. There is also a free fluid collection in the right posterior dependent pelvis anterior to the rectum measuring approximately 2.7 x 4.0 cm without abscess wall seen. There is a benign round cyst in the left adnexa most likely ovarian cysts measuring approximately 4.4 by 2.8 x 1.6 cm. Urinary bladder i s normal. Patient appears be status post hysterectomy. No other pelvic mass lesion is seen. No abd ominal wall hernia is seen. IMPRESSION: 1. There are large abscesses with multiple necrotic cavitary fluid collections seen wi thin the superior right psoas muscle, right erector spinae muscle, and bilateral multifidus muscles a t the posterior lumbar spine region consistent with necrotic muscular abscesses. There is no muscula r abscess seen in the gluteus muscle group, or other muscles in the pelvis. 2. There is a dependent fluid collection in the posterior right pelvis anterior to the rectum withou t an inflammatory wall, but possible infected fluid collection cannot be excluded. 3. Benign cyst in the left ovary. 4. No imaging evidence of osteomyelitis in the pelvis. Clinical correlation and followup imaging may be warranted as clinically indicated.
[2017-06-03] MEDS: traZODone 100 MG TAB PO SCH (21:43)
[2017-06-03 22:00] VITALS: BP 154/86
[2017-06-04] MEDS: NS 1,000 ML IV SCH (01:01)
[2017-06-04] MEDS: MORPHINE 2 MG/ML 1ML SYRINGE IV PRN ×3 (01:02→10:55)
[2017-06-04] MEDS: KETOROLAC 30 MG/ML VIAL (J1885) IV SCH ×3 (02:35→20:23)
[2017-06-04 06:00] VITALS: BP 146/98
[2017-06-04 06:16] LABS: BASO # 0.1 K/mm3 (0.0-0.2); BASO % 0.5 % (0.0-1.0); EOS # 0.3 K/mm3 (0.0-0.50); EOS % 2.3 % (0.0-3.0); LARGE UNSTAINED CELL # 0.2 K/mm3 (0.0-0.4); LARGE UNSTAINED CELL % 1.3 % (0.0-4.0); LYMPH # 1.4 K/mm3 (1.5-4.5); LYMPH % 10.6 % (24.0-44.0); MEAN CORPUSCULAR HGB CONC 32.6 g/dl (32.0-36.5); MEAN CORPUSCULAR VOLUME 88.9 fl (80.0-96.0); MONO # 0.6 K/mm3 (0.0-0.8); MONO % 4.7 % (0.0-5.0); NEUTROPHILS # 10.8 K/mm3 (1.8-7.7); NEUTROPHILS % 80.6 % (36.0-66.0); PLATELET COUNT, AUTOMATED 508 k/mm3 (150-450); RED CELL DISTRIBUTION WIDTH 13.7 % (11.5-14.5); WHITE BLOOD COUNT 13.4 K/mm3 (4.0-10.0)
[2017-06-04 06:21] LABS: INR 1.15
[2017-06-04 06:28] LABS: ANION GAP 5 MEQ/L (8-16); BLOOD UREA NITROGEN 5 MG/DL (7-18); CALCIUM LEVEL 8.6 MG/DL (8.5-10.1); CARBON DIOXIDE LEVEL 32 MEQ/L (21-32); CHLORIDE LEVEL 100 MEQ/L (98-107); CREATININE FOR GFR 0.56 MG/DL (0.55-1.02); GLOMERULAR FILTRATION RATE > 60.0 (>58); GLUCOSE, FASTING 90 MG/DL (70-105); POTASSIUM SERUM 4.2 MEQ/L (3.5-5.1); SODIUM LEVEL 137 MEQ/L (136-145)
[2017-06-04 07:05] LABS: ERYTHROCYTE SEDIMENTATION RATE 73 mm/hr (0-20)
--- NOTE | 2017-06-04 07:23 | REP ---
MRI LUMBAR SPINE WITHOUT AND WITH CONTRAST: HISTORY: Abscess. CONTRAST: ProHance 12 mL. COMPARISON: 05/31/2017. Decreased signal intensity on T2-weighted images is present in the L3-4 and L4-5 intervertebral discs. The discs are decreased in height. These findings are consistent with disc degeneration. Increased signal intensity on T2-weighted images is present in the L3 and 4 vertebral bodies. There is mild homogeneous enhancement of the L3 and 4 vertebral bodies and L3-4 intervertebral disc . This is consistent with discitis/osteomyelitis that is unchanged compared to the previous study. An abscess is present in the left psoas muscle. The abscess measures 3.2 cm in width and is increased in size compared to the previous study. The abscess extends from the L1-2 level inferior to the L3-4 level. A small right paravertebral phlegmon is present at the L2-3 to L3-4 level. There is extension into the epidural space at the L2-3 level. A small abscess is present in the right L2 neural foramen. There is extension into the right anterior aspect of the spinal canal. A new 6 mm abscess is present in the anterior epidural space at the L2-3 level. There has been a slight increase in size of the small left pleural phlegmon. These findings produce minimal thecal sac compression. There is compression of the right L2 nerve in the neural foramen. A small anterior and left paravertebral soft tissue component is present that is unchanged compared to the previous study. Abscesses are present in the right posterior paravertebral soft tissue extending from the L2-3 level inferior to the L4-5 level. These measure 7 mm to 2 cm in size. These are increased in size compared to the previous study. A new small 7 mm abscess is present in the right paravertebral soft tissue at the L3-4 level. Disc bulges are present at the L3-4 and L4-5 levels. There is minimal compression of the thecal sac. IMPRESSION: 1. Findings consistent with discitis/osteomyelitis at the L3-4 level that are unchanged compared to the previous study. 2. There is a small enhancing right paravertebral phlegmon with extension into the right L2 neural foramen. A 6 mm abscess is present in the right L2 neural foramen. There is extension into the right anterior aspect of the spinal canal. A new 6 mm epidural abscess is present in the anterior spinal canal at this level. There has been a slight increase in size of the epidural phlegmon. These findings produce minimal thecal sac compression. 3. There are several abscesses in the right psoas muscle and right posterior paravertebral soft tissue that are slightly increased in size compared to the previous study. A new 7 mm abscess is present at the L3-4 level. Signed by Filiberto Graves MD 06/04/2017 08:24 A
--- NOTE | 2017-06-04 07:52 | IPNPDOC ---
Subjective Date Seen The patient was seen on 06/04/17. Subjective Chief Complaint/HPI The patient is a 47-year-old female admitted with a reason for visit of Psoas Abscess. Events since last encounter Requesting to shower. States pain is controlled with morphine prn. Plan is for neurosurgery to take to OR for treatment of epidural abscess today. C/o RLE numbness. Constitutional: Denies: Chills, Fever, Night Sweats ENT: Denies: Head Aches, Ear Pain, Dysphagia Pulmonary: Denies: Dyspnea, Cough Cardiovascular: Denies: Chest Pain, Palpitations, Orthopnea, Paroxysmal Noc. Dyspnea, Lt Headedness Gastrointestinal: Denies: Nausea, Vomiting, Abdominal Pain, Diarrhea, Constipation Genitourinary: Denies: Dysuria, Frequency, Incontinence, Retention Musculoskeletal: Reports: Back Pain Neurological: Reports: Numbness Psych: Denies: Thoughts of Self Harm (RLE) Objective Physical Examination General Exam: Positive: Alert, Cooperative, Moderate Distress Eye Exam: Positive: PERRLA ENT Exam: Positive: Atraumatic, Mucous membr. moist/pink, Pharynx Normal Neck Exam: Positive: Supple, Negative: JVD Chest Exam: Positive: Clear to auscultation, Normal air movement, Negative: Rales, Rhonchi, Wheezing Heart Exam: Positive: Rate Normal, Regular Rhythm, Normal S1, Normal S2 Telemetry: Positive: No significant arrhythmia Abdomen Exam: Positive: Normal bowel sounds, Soft, Negative: Tenderness, Hepatospenomegaly Extremity Exam: Positive: Normal pulses, Tenderness (right hip and low back lumbar spine), Negative: Clubbing, Cyanosis, Edema, Swelling Skin Exam: Negative: Rash, Breakdown Neuro Exam: Positive: Normal Gait, Normal Speech, Strength at 5/5 X4 ext, Reflexes 2+ (bilateral 2/4 knee/Achilles jerk), Negative: Sensation Intact (decreased pain sensation R anterior thigh) Psych Exam: Positive: Mental status NL Assessment /Plan Problems (1) Epidural abscess Problem Text: new 6 mm abcscess in the right L2 neural foramen. plan for surgical correction today with Neurosurgery. (2) Discitis Status: Acute Response to Treatment: Stable Problem Text: 06/04 - Neurosurgery taking patient to OR this afternoon due to findings on back MRI of: 1. Findings consistent with discitis/osteomyelitis at the L3-4 level that are unchanged compared to the previous study. 2. There is a small enhancing right paravertebral phlegmon with extension into the right L2 neural foramen. A 6 mm abscess is present in the right L2 neural foramen. There is extension into the right anterior aspect of the spinal canal. A new 6 mm epidural abscess is present in the anterior spinal canal at this level. There has been a slight increase in size of the epidural phlegmon. These findings produce minimal thecal sac compression. History of L3/4 MSSA diskitis admitted on 02/16 and discharged on 02/27/17 The patient had a peripherally inserted central catheter (PICC) line. The PICC line was removed on 04/06 as the patient was cured from the diskitis. 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 There is decreased enhancement of the L3 and L4 vertebral bodies and L3-4 intervertebral disc. There are new abscesses in the right psoas muscle and right posterior paravertebral soft tissue extending from the L1-2 level inferior to the L4-5 level. A small right intraforaminal and epidural abscess is present at the L2-3 level. There is minimal compression of the thecal sac. (3) Psoas abscess Status: Acute Response to Treatment: Stable Problem Text: 06/04 - Neurosurg to take for decompression of epidural abscess today; after spine is stable, may need to consider Ortho consult to further address Psoas abscess, as pelvic MRI showed: IMPRESSION: 1. There are large abscesses with multiple necrotic cavitary fluid collections seen within the superior right psoas muscle, right erector spinae muscle, and bilateral multifidus muscles at the posterior lumbar spine region consistent with necrotic muscular abscesses. There is no muscular abscess seen in the gluteus muscle group, or other muscles in the pelvis. 2. There is a dependent fluid collection in the posterior right pelvis anterior to the rectum without an inflammatory wall, but possible infected fluid collection cannot be excluded. 06/03 given MSO4 4 (up from 2 q3H) and ketorolac 30 IV x 1 secondary to increased pain/R anterior thigh numbness (patient reports ketorolac worked best) , given worsening pain/numbness-favor STAT MRI s/c andrew LS spine/pelvis R buttock , case d/w Dr. Adair and Dr. [facility] who agree c repeat imaging (obvious concern given 05/31 MRI c right L2/3 intraforaminal and epidural abscess c thecal sac compression) 06/02/17 recurrent R paralumbar pain radiating to R anterior thigh, similar to [id number] need to repeat MRI to r/o reaccumulation 06/01/17 R psoas abscess drainage of 17 cc fluid by IR 06/01/17 WCX 2/2 S. aureus consult PFS ? recurrent IV drug use (4) Staphylococcus aureus sepsis Status: Acute Response to Treatment: Stable Problem Text: Favor R psoas abscess source D3 cefazolin-plan repeat 6W cefazolin (holding vanco) via PICC to place 06/03 14.8, CRP 15/ESR 73, afebrile; D3 vanco held due to BCX c MSSA 06/02 WBC 15.2 (17.0), Tmax 100 06/01 2000, check CT head given persistent frontal BRADY s neuro deficits 05/31 CRP 21/ESR 63 06/03/17 BCX P 06/02/17 BCX NG 05/31/17 BCX 2/2 MSSA 06/01/17 TTE- Leonard: IMPRESSION: 1. Normal global left ventricular systolic function. There are some features of left ventricular diastolic dysfunction manifested by abnormal relaxation. 2. Aortic valve sclerosis with trace aortic regurgitation and trivial aortic stenosis. Could not rule out old vegetation on the aortic valve. In view of her history, to consider a transesophageal echocardiogram. 3. Trace to mild mitral regurgitation. 4. Trace tricuspid regurgitation with a normal calculated pulmonary artery systolic pressure. 5. Trace pericardial effusion. No evidence of cardiac tamponade. 6. Atrial septal aneurysm with possible patent foramen ovale. Once again, to consider a transesophageal echocardiogram. plan d/w Antecol on 06/04 appreciate ID/Kidwai input (5) Anemia Status: Acute Problem Text: H/H 9.7/29.1 upon admission; Hgb improved to baseline without intervention - Iron studies are consistent with iron deficiency - Occult stool is pending (6) Diarrhea Status: Acute Response to Treatment: Stable Problem Text: No BM since admission-prior to admission diarrhea Taking adequate po; therefore, 06/03 SLIV 06/03 + Ducolax supp (patient states usually works best for her) (7) Hypokalemia Response to Treatment: Stable Problem Text: favor 2 diarrhea 06/03 3.8 on 40 BID/ Mg 2.0 06/02 back down to 3.2 on 20; therefore, increased to 40 BID (8) Anxiety Status: Chronic Response to Treatment: Stable Problem Text: continue to monitor stable (9) History of substance use Status: Chronic Response to Treatment: Stable Problem Text: patient continues to deny substance abuse. has been following with [facility] behavioral health addiction services. 05/31/17 -UDS on admission consult PFS ? recurrent IV drug use (10) DVT prophylaxis Status: Acute Response to Treatment: Stable Problem Text: SCD TEDS (11) UTI (urinary tract infection) Status: Acute Response to Treatment: Stable Problem Text: rx as per sepsis 05/31/17 UCX E. coli >100K-pansensitive Plan/VTE VTE Prophylaxis Ordered?: Yes Plan Family Medicine Attending Note: I saw and examined Ms. Cardona this afternoon prior to her surgery; her lower back was diffusely tender to palpation but she was able to ambulate to the bathroom without difficulty. I d/w ISAIAH Thomas and I agree with her note above. Given urgent surgery today, treatment of psoas abscess will need to be deferred. TTE could not rule out cardiac vegetations, but so far blood cultures are negative so x48 hours, so I think this is unlikely. Continue antibiotics per ID recommendations. (KES) VS, I&O, 24H, Fishbone Vital Signs/I&O Vital Signs Date Time Temp Pulse Resp B/P (MAP) Pulse Ox O2 Delivery O2 Flow Rate FiO2 06/04/17 06:10 19 146/98 Room Air 06/04/17 06:00 98.1 81 95 I&O- Last 24 Hours up to 6 AM 06/04/17 06:00 Intake Total 2660 ml Output Total 3350 ml Balance -690 ml Laboratory Data 24H LABS Laboratory Tests 2 06/04/17 05:39: White Blood Count 13.4H, Red Blood Count 3.89L, Hemoglobin 11.3L, Hematocrit 34.6L, Mean Corpuscular Volume 88.9, Mean Corpuscular Hemoglobin 29.0, Mean Corpuscular Hemoglobin Concent 32.6, Red Cell Distribution Width 13.7, Platelet Count 508H, Neutrophils (%) (Auto) 80.6H, Lymphocytes (%) (Auto) 10.6L, Monocytes (%) (Auto) 4.7, Eosinophils (%) (Auto) 2.3, Basophils (%) (Auto) 0.5, Neutrophils # (Auto) 10.8H, Lymphocytes # (Auto) 1.4L, Monocytes # (Auto) 0.6, Eosinophils # (Auto) 0.3, Basophils # (Auto) 0.1, Large Unclassified Cells % 1.3 , Large Unclassified Cells # 0.2, Erythrocyte Sedimentation Rate 73H 06/04/17 05:40: Prothrombin Time 14.9H, Prothromb Time International Ratio 1.15, Anion Gap 5L, Glomerular Filtration Rate > 60.0, Blood Urea Nitrogen 5L, Creatinine 0.56, Sodium Level 137, Potassium Level 4.2, Chloride Level 100, Carbon Dioxide Level 32, Calcium Level 8.6, C-Reactive Protein, Quantitative 17.50H CBC/BMP Laboratory Tests 06/04/17 05:39 Red Blood Count 3.89 L, Mean Corpuscular Volume 88.9, Mean Corpuscular Hemoglobin 29.0, Mean Corpuscular Hemoglobin Concent 32.6, Red Cell Distribution Width 13.7, Neutrophils (%) (Auto) 80.6 H, Lymphocytes (%) (Auto) 10.6 L, Monocytes (%) (Auto) 4.7, Eosinophils (%) (Auto) 2.3, Basophils (%) ( Auto) 0.5, Neutrophils # (Auto) 10.8 H, Lymphocytes # (Auto) 1.4 L, Monocytes # (Auto) 0.6, Eosinophils # (Auto) 0.3, Basophils # (Auto) 0.1 06/04/17 05:40 Calcium Level 8.6 Microbiology Microbiology 06/03/17 Blood Culture - Preliminary, Resulted No growth after 24 hours . All specim... 06/02/17 Blood Culture - Preliminary, Resulted No Growth after 48 hours. All Specime... 05/31/17 Blood Culture - Final, Complete Staphylococcus Aureus 05/31/17 Blood Culture - Final, Complete Staphylococcus Aureus 06/01/17 Anaerobic Culture - Final, Complete 06/01/17 Anaerobic Culture - Final, Complete 05/31/17 Urine Culture - Final, Complete Escherichia Coli 06/01/17 Gram Stain - Final, Complete 06/01/17 Abscess Culture - Final, Complete Staphylococcus Aureus 06/01/17 Gram Stain - Final, Complete 06/01/17 Abscess Culture - Final, Complete Staphylococcus Aureus Serena Chow Jun 04, 2017 07:52 JOLLY DICKINSON MD Jun 04, 2017 13:54
[2017-06-04] MEDS: LACTOBACILLUS ACIDOPHILUS CAP (BACID) PO SCH ×2 (08:24→20:24)
[2017-06-04] MEDS: DULoxetine 30 MG CAP (CYMBALTA) PO SCH (08:24)
[2017-06-04] MEDS: ASCORBIC ACID 500 MG TAB PO SCH (08:25)
[2017-06-04] MEDS: POTASSIUM CHLORIDE 10 MEQ SR TABLET PO SCH ×2 (08:25→20:25)
[2017-06-04] MEDS ORDERED: THROMBIN SOLN 20,000 UNITS KIT As Ordered ONE (12:06)
[2017-06-04] MEDS ORDERED: methylPREDNISolone SUSP 40 MG/ML (DEPO-medrol) VIAL (J1030) As Ordered ONE (12:06)
[2017-06-04] MEDS ORDERED: BACITRACIN PWD 50,000 UNITS VIAL As Ordered ONE (12:06)
[2017-06-04] MEDS ORDERED: ONDANSETRON 4MG/2ML VIAL (J2405) As Ordered ONE ×2 (13:31→15:00)
[2017-06-04] MEDS ORDERED: MIDAZOLAM INJ 2 MG/2 ML VIAL (J2250) As Ordered ONE (13:31)
[2017-06-04] MEDS ORDERED: ROCURONIUM BROMIDE 50 MG/5 ML VIAL/SYRINGE As Ordered ONE (13:31)
[2017-06-04] MEDS ORDERED: PROPOFOL 200 MG/20 ML VIAL As Ordered ONE ×2 (13:31→15:48)
[2017-06-04] MEDS ORDERED: fentaNYL 250 MCG/5 ML INJECTION (J3010) As Ordered ONE (13:31)
[2017-06-04] MEDS ORDERED: dexameTHASONE 4 MG/ML 1ML VIAL (J1100) As Ordered ONE (13:31)
--- NOTE | 2017-06-04 14:21 | REP ---
CT guided localization psoas and dorsal paraspinal muscle abscess. History: Preop for drainage of soft tissue abscesses in the right paraspinal musculature. Procedure: The patient was placed prone on the CT table and noncontrast CT scan images were utilized to localize both the psoas muscle abscess and the more dorsal paraspinal muscle collection. A skin brenda was placed to the skin dorsally over each of these sites and the skin was labeled with indelible ink at these positions. Two markers were placed. The procedure and the findings were discussed with Dr. Hernández by telephone. Impression: CT-guided localization procedure for paraspinal abscesses. Two markers placed. Signed by Lucas Givens MD 06/04/2017 04:24 P
[2017-06-04] MEDS ORDERED: METOCLOPRAMIDE INJ 10MG/2ML VIAL (J2765) As Ordered ONE (15:00)
[2017-06-04] MEDS ORDERED: ePHEDrine SULFATE 25 MG/5 ML(5MG/ML) SYRINGE As Ordered ONE (15:03)
[2017-06-04] MEDS ORDERED: PHENYLephrine HCL 500 MCG/5 ML (100MCG/ML) SYRINGE (J2370) As Ordered ONE (15:03)
[2017-06-04] MEDS ORDERED: GLYCOPYRROLATE INJ 0.2 MG/ML 2 ML VIAL As Ordered ONE (15:37)
[2017-06-04] MEDS ORDERED: NEOSTIGMINE 1MG/ML 5 ML SYRINGE (J2710) As Ordered ONE (15:37)
[2017-06-04] MEDS ORDERED: HYDROmorphone HCL 2 MG/ML 1ML VIAL (J1170) As Ordered ONE (15:41)
[2017-06-04] MEDS ORDERED: KETOROLAC 60 MG/2 ML VIAL (J1885) As Ordered ONE (15:52)
[2017-06-04] MEDS ORDERED: fentaNYL 100 MCG/2 ML INJECTION (J3010) IV PRN (16:30)
[2017-06-04] MEDS ORDERED: ONDANSETRON 4MG/2ML VIAL (J2405) IV PRN (16:30)
[2017-06-04] MEDS ORDERED: LR 1,000 ML IV SCH (16:30)
[2017-06-04 17:40] VITALS: BP 154/93
[2017-06-04 18:10] VITALS: BP 124/76
[2017-06-04] MEDS: KCL 20MEQ IN D5/0.45NS 1000ML 1,000 ML IV SCH (18:43)
[2017-06-04 19:56] VITALS: BP 129/87
[2017-06-04] MEDS: traZODone 100 MG TAB PO SCH (20:24)
[2017-06-05] VITALS (7 sets, daily range): BP systolic 106–163; BP diastolic 55–96
[2017-06-05] MEDS: PERCOCET 5MG/325MG TAB PO PRN ×2 (00:49→18:35)
[2017-06-05] MEDS: KCL 20MEQ IN D5/0.45NS 1000ML 1,000 ML IV SCH (02:30)
[2017-06-05] MEDS: KETOROLAC 30 MG/ML VIAL (J1885) IV SCH ×4 (02:54→20:35)
[2017-06-05 05:44] LABS: BASO % 0.1 % (0.0-1.0); EOS % 0.3 % (0.0-3.0); LARGE UNSTAINED CELL # 0.1 K/mm3 (0.0-0.4); LARGE UNSTAINED CELL % 0.9 % (0.0-4.0); LYMPH # 1.5 K/mm3 (1.5-4.5); LYMPH % 8.9 % (24.0-44.0); MEAN CORPUSCULAR HGB CONC 33.2 g/dl (32.0-36.5); MEAN CORPUSCULAR VOLUME 87.2 fl (80.0-96.0); MONO # 0.7 K/mm3 (0.0-0.8); MONO % 4.5 % (0.0-5.0); NEUTROPHILS # 12.7 K/mm3 (1.8-7.7); NEUTROPHILS % 85.3 % (36.0-66.0); PLATELET COUNT, AUTOMATED 508 k/mm3 (150-450); RED CELL DISTRIBUTION WIDTH 13.8 % (11.5-14.5); WHITE BLOOD COUNT 14.8 K/mm3 (4.0-10.0)
[2017-06-05 05:59] LABS: ANION GAP 7 MEQ/L (8-16); BLOOD UREA NITROGEN 16 MG/DL (7-18); CALCIUM LEVEL 8.2 MG/DL (8.5-10.1); CARBON DIOXIDE LEVEL 29 MEQ/L (21-32); CHLORIDE LEVEL 102 MEQ/L (98-107); GLOMERULAR FILTRATION RATE > 60.0 (>58); GLUCOSE, FASTING 128 MG/DL (70-105); POTASSIUM SERUM 4.9 MEQ/L (3.5-5.1); SODIUM LEVEL 138 MEQ/L (136-145)
[2017-06-05 06:14] LABS: ERYTHROCYTE SEDIMENTATION RATE 83 mm/hr (0-20)
--- NOTE | 2017-06-05 07:42 | IPN ---
DATE: 05/31/2017 Ashwini was in the recovery room when I saw her. She went back to the operating room for incision and drainage (I and D) of the epidural abscess. This was done by Dr. Hernández. LABORATORY DATA: White count is 13.4, hemoglobin 11.3, hematocrit 34.6, platelets 508. ESR 73. Sodium 137, potassium 4.2, chloride 100, bicarb 32, BUN 5, creatinine 0.56, glucose 90, calcium 8.6, CRP 17.5 down from 21.4, blood cultures were positive for Methicillin-sensitive staphylococcus aureus (MSSA). Psoas abscess culture was positive for Methicillin-sensitive staphylococcus aureus (MSSA). Repeat blood cultures done on 06/02 and 06/03 were no growth after 48 hours. Repeat cultures intraoperatively are pending. On physical exam temperature is 100.2, pulse 115, respirations 18, blood pressure 129/87, O2 sat 96% on room air. Postoperative vitals: Heart: Normal S1-S2, tachycardiac. Lungs are clear. No wheezes or rhonchi. Abdomen: Soft, nontender. Back: Has a wound Vac in place. Extremities: No edema. Patient moving all extremities. She was complaining of some thigh numbness. IMPRESSION: 1. Epidural abscess with psoas abscess due to Methicillin-sensitive staphylococcus aureus (MSSA) with sepsis. On IV cefazolin 2 grams every 12 hours, doing fairly well. 2. History of IV drug use although denies use for over 4 months. 3. History of L3-L4 discitis treated with 6 weeks of IV cefazolin improved. 4. Hepatitis C not treated yet due to poor compliance with medical visits. PLAN: Continue IV ceFazolin. The patient will need at least 6 weeks of IV antibiotics through PICC line. The patient could have PICC line placed tomorrow. We will continue to follow. [facility] HOSPITALHenri
--- NOTE | 2017-06-05 09:05 | IPNPDOC ---
Subjective Date Seen The patient was seen on 06/05/17. Subjective Chief Complaint/HPI The patient is a 47-year-old female admitted with a reason for visit of Psoas Abscess. Events since last encounter s/p I& D with Dr. Hernández for epidural and psoas abscess. Op notes not available for specificity. Patient states RLE numbness resolved. denies pain. Last pain medication was oxycodone x 1 at 2400. Getting OOB tolerating po. plan for PICC line today for shelter IV abx. Needs TTE due to abnormal echo. Constitutional: Reports: Fever, Denies: Chills, Night Sweats ENT: Denies: Head Aches, Ear Pain, Dysphagia Pulmonary: Denies: Dyspnea, Cough Cardiovascular: Denies: Chest Pain, Palpitations, Orthopnea, Paroxysmal Noc. Dyspnea, Lt Headedness Gastrointestinal: Denies: Nausea, Vomiting, Abdominal Pain, Diarrhea, Constipation Genitourinary: Denies: Dysuria, Frequency, Incontinence, Retention Psych: Reports: Mood Normal, Denies: Depression, Memory Issues Objective Physical Examination General Exam: Positive: Alert, Cooperative, Moderate Distress Eye Exam: Positive: PERRLA ENT Exam: Positive: Atraumatic, Mucous membr. moist/pink, Pharynx Normal Neck Exam: Positive: Supple, Negative: JVD Chest Exam: Positive: Clear to auscultation, Normal air movement, Negative: Rales, Rhonchi, Wheezing Heart Exam: Positive: Rate Normal, Regular Rhythm, Normal S1, Normal S2 Telemetry: Positive: No significant arrhythmia Abdomen Exam: Positive: Normal bowel sounds, Soft, Negative: Tenderness, Hepatospenomegaly Extremity Exam: Positive: Normal pulses, Tenderness (right hip and low back lumbar spine), Negative: Clubbing, Cyanosis, Edema, Swelling Skin Exam: Negative: Rash, Breakdown Neuro Exam: Positive: Normal Gait, Normal Speech, Strength at 5/5 X4 ext, Reflexes 2+ (bilateral 2/4 knee/Achilles jerk), Negative: Sensation Intact (decreased pain sensation R anterior thigh) Psych Exam: Positive: Mental status NL Assessment /Plan Problems (1) Staphylococcus aureus sepsis Status: Acute Response to Treatment: Stable Problem Text: Favor R psoas abscess source D5/42 cefazolin-plan repeat 6W cefazolin (began 06/01) (holding vanco) via PICC to place 06/05/1706/05 14.8 -Tm 100.5 06/03 14.8, CRP 15/ESR 73, afebrile; D3 vanco held due to BCX c MSSA 06/02 WBC 15.2 (17.0), Tmax 100 06/01 2000, check CT head given persistent frontal BRADY s neuro deficits 05/31 CRP 21/ESR 63 06/03/17 BCX P 06/02/17 BCX NG 05/31/17 BCX / MSSA 06/01/17 TTE-Dr. Valle: IMPRESSION: 1. Normal global left ventricular systolic function. There are some features of left ventricular diastolic dysfunction manifested by abnormal relaxation. 2. Aortic valve sclerosis with trace aortic regurgitation and trivial aortic stenosis. Could not rule out old vegetation on the aortic valve. In view of her history, to consider a transesophageal echocardiogram. 3. Trace to mild mitral regurgitation. 4. Trace tricuspid regurgitation with a normal calculated pulmonary artery systolic pressure. 5. Trace pericardial effusion. No evidence of cardiac tamponade. 6. Atrial septal aneurysm with possible patent foramen ovale. Once again, to consider a transesophageal echocardiogram. Per Dr. Moreland: minimal indication for PHILOMENA. Monitor patient. appreciate ID/Betty input (2) Epidural abscess Problem Text: 06/04 s/p ID-Betty new 6 mm abcscess in the right L2 neural foramen (3) Discitis Status: Acute Response to Treatment: Stable Problem Text: 06/04 - Neurosurgery taking patient to OR this afternoon due to findings on back MRI of: 1. Findings consistent with discitis/osteomyelitis at the L3-4 level that are unchanged compared to the previous study. 2. There is a small enhancing right paravertebral phlegmon with extension into the right L2 neural foramen. A 6 mm abscess is present in the right L2 neural foramen. There is extension into the right anterior aspect of the spinal canal. A new 6 mm epidural abscess is present in the anterior spinal canal at this level. There has been a slight increase in size of the epidural phlegmon. These findings produce minimal thecal sac compression. History of L3/4 MSSA diskitis admitted on 02/16 and discharged on 02/27/17 The patient had a peripherally inserted central catheter (PICC) line. The PICC line was removed on 04/06 as the patient was cured from the diskitis. 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 There is decreased enhancement of the L3 and L4 vertebral bodies and L3-4 intervertebral disc. There are new abscesses in the right psoas muscle and right posterior paravertebral soft tissue extending from the L1-2 level inferior to the L4-5 level. A small right intraforaminal and epidural abscess is present at the L2-3 level. There is minimal compression of the thecal sac. (4) Psoas abscess Status: Acute Response to Treatment: Stable Problem Text: R paraspinal wound vac in place 06/04 s/p drainage of psoas and paraspinal muscle abscesses by Betty hernandez CT localization 06/03 given MSO4 4 (up from 2 q3H) and ketorolac 30 IV x 1 secondary to increased pain/R anterior thigh numbness (patient reports ketorolac worked best) , given worsening pain/numbness-favor STAT MRI s/c andrew LS spine/pelvis R buttock , case d/w Dr. Adair and Dr. [facility] who agree c repeat imaging (obvious concern given 05/31 MRI c right L2/3 intraforaminal and epidural abscess c thecal sac compression) 06/02/17 recurrent R paralumbar pain radiating to R anterior thigh, similar to [id number] need to repeat MRI to r/o reaccumulation 06/01/17 R psoas abscess drainage of 17 cc fluid by IR 06/01/17 WCX 2/2 S. aureus consult PFS ? recurrent IV drug use-parents state she has not (5) Anemia Status: Acute Problem Text: H/H 9.7/29.1 upon admission; Hgb improved to baseline without intervention - Iron studies are consistent with iron deficiency - Occult stool is pending (6) Diarrhea Status: Acute Response to Treatment: Stable Problem Text: No BM since admission-prior to admission diarrhea Taking adequate po; therefore, 06/03 SLIV 06/03 + Ducolax supp (patient states usually works best for her) (7) Hypokalemia Response to Treatment: Stable Problem Text: favor 2 diarrhea 06/03 3.8 on 40 BID/ Mg 2.0 06/02 back down to 3.2 on 20; therefore, increased to 40 BID (8) Anxiety Status: Chronic Response to Treatment: Stable Problem Text: continue to monitor stable (9) History of substance use Status: Chronic Response to Treatment: Stable Problem Text: patient continues to deny substance abuse. has been following with [facility] behavioral health addiction services. 05/31/17 -UDS on admission consult PFS ? recurrent IV drug use (10) DVT prophylaxis Status: Acute Response to Treatment: Stable Problem Text: SCD TEDS (11) UTI (urinary tract infection) Status: Acute Response to Treatment: Stable Problem Text: rx as per sepsis 05/31/17 UCX E. coli >100K-pansensitive Plan/VTE VTE Prophylaxis Ordered?: Yes VS, I&O, 24H, Fishbone Vital Signs/I&O Vital Signs Date Time Temp Pulse Resp B/P (MAP) Pulse Ox O2 Delivery O2 Flow Rate FiO2 06/05/17 03:52 97.8 81 18 106/55 (72) 98 Room Air 06/04/17 16:20 3 I&O- Last 24 Hours up to 6 AM 06/05/17 06:00 Intake Total 2895 ml Output Total 2500 ml Balance 395 ml Laboratory Data 24H LABS Laboratory Tests 2 06/05/17 05:25: White Blood Count 14.8H, Red Blood Count 3.45L, Hemoglobin 10.0L, Hematocrit 30.1L, Mean Corpuscular Volume 87.2, Mean Corpuscular Hemoglobin 29.0, Mean Corpuscular Hemoglobin Concent 33.2, Red Cell Distribution Width 13.8, Platelet Count 508H, Neutrophils (%) (Auto) 85.3H, Lymphocytes (%) (Auto) 8.9L, Monocytes (%) (Auto) 4.5, Eosinophils (%) (Auto) 0.3, Basophils (%) (Auto) 0.1, Neutrophils # (Auto) 12.7H, Lymphocytes # (Auto) 1.5, Monocytes # (Auto) 0.7, Eosinophils # (Auto) 0.0, Basophils # (Auto) 0.0, Large Unclassified Cells % 0.9 , Large Unclassified Cells # 0.1, Erythrocyte Sedimentation Rate 83H, Anion Gap 7L, Glomerular Filtration Rate > 60.0, Blood Urea Nitrogen 16#, Creatinine 0.70 , Sodium Level 138, Potassium Level 4.9, Chloride Level 102, Carbon Dioxide Level 29, Calcium Level 8.2L, C-Reactive Protein, Quantitative 11.20H CBC/BMP Laboratory Tests 06/05/17 05:25 Red Blood Count 3.45 L, Mean Corpuscular Volume 87.2, Mean Corpuscular Hemoglobin 29.0, Mean Corpuscular Hemoglobin Concent 33.2, Red Cell Distribution Width 13.8, Neutrophils (%) (Auto) 85.3 H, Lymphocytes (%) (Auto) 8.9 L, Monocytes (%) (Auto) 4.5, Eosinophils (%) (Auto) 0.3, Basophils (%) (Auto ) 0.1, Neutrophils # (Auto) 12.7 H, Lymphocytes # (Auto) 1.5, Monocytes # (Auto ) 0.7, Eosinophils # (Auto) 0.0, Basophils # (Auto) 0.0, Calcium Level 8.2 L Microbiology Microbiology 06/03/17 Blood Culture - Preliminary, Resulted No Growth after 48 hours. All Specime... 06/02/17 Blood Culture - Preliminary, Resulted No Growth after 72 hours. All specime... 05/31/17 Blood Culture - Final, Complete Staphylococcus Aureus 05/31/17 Blood Culture - Final, Complete Staphylococcus Aureus 06/01/17 Anaerobic Culture - Final, Complete 06/01/17 Anaerobic Culture - Final, Complete 05/31/17 Urine Culture - Final, Complete Escherichia Coli 06/04/17 Acid Fast Stain, Received Pending 06/04/17 Mycobacterial Culture, Received Pending 06/04/17 Fungal Smear, Received Pending 06/04/17 Fungal Culture, Received Pending 06/04/17 Gram Stain - Final, Resulted 06/04/17 Wound Culture, Resulted Pending 06/04/17 Anaerobic Culture, Resulted Pending 06/01/17 Gram Stain - Final, Complete 06/01/17 Abscess Culture - Final, Complete Staphylococcus Aureus 06/01/17 Gram Stain - Final, Complete 06/01/17 Abscess Culture - Final, Complete Staphylococcus Aureus Serena Chow Jun 05, 2017 09:05 Kiran Cantrell M.D. Jun 05, 2017 14:58
--- NOTE | 2017-06-05 09:28 | REP ---
PARTIAL LUMBAR SPINE SERIES: Single view. HISTORY: Abscess. 3 seconds of fluoroscopy time is reported. FINDINGS: A single AP fluoroscopically obtained last image hold spot radiograph of the lumbar spine with a forceps marker in place is obtained as a operative localization film. Signed by Lucas Givens MD 06/05/2017 04:01 P
[2017-06-05] MEDS: LACTOBACILLUS ACIDOPHILUS CAP (BACID) PO SCH ×2 (09:55→20:35)
[2017-06-05] MEDS: DULoxetine 30 MG CAP (CYMBALTA) PO SCH (09:55)
[2017-06-05] MEDS: ASCORBIC ACID 500 MG TAB PO SCH (09:55)
[2017-06-05] MEDS: POTASSIUM CHLORIDE 10 MEQ SR TABLET PO SCH (09:56)
[2017-06-05] MEDS: ONDANSETRON 4 MG TAB (S0181) PO PRN (10:12)
[2017-06-05] MEDS: MORPHINE 2 MG/ML 1ML SYRINGE IV PRN (12:33)
[2017-06-05] MEDS: MIRALAX *UNIT DOSE* 17GM PACKET PO PRN (15:15)
--- NOTE | 2017-06-05 16:09 | REP ---
Procedure: PICC line insertion with Isabel-Damian The procedure was performed under the direct supervision of Dr. Givens. The risks and benefits of the procedure were explained to the patient and informed consent was obtained. The left basilic vein was localized using ultrasound guidance. The skin was prepped and draped in a sterile fashion. 2% lidocaine was used as a local anesthetic. Using ultrasound guidance the basilic vein was cannulated and a 0.018 guidewire was inserted and advanced to the SVC using fluoroscopic guidance. The needle was removed and a 4.5 Bahamian dilator and peel-away sheath was inserted over the guide wire. A 4.5 Bahamian single lumen catheter was cut to length of 41 cm. The dilator was removed and the catheter was inserted over the guide wire with the tip ending in the SVC. The peel-away sheath was removed and the catheter was flushed with heparinized saline as per Hospital protocol. The catheter was affixed to the skin and a sterile dressing was applied. The the patient tolerated the procedure well and there were no immediate complications. 0.2 minutes of fluoro time was utilized for this procedure. Reviewed by TRACEY Wagoner 06/05/2017 03:51 PSigned by Lucas Givens MD 06/05/2017 04:00 P
--- NOTE | 2017-06-05 17:35 | REP ---
CT LUMBAR SPINE WITHOUT CONTRAST: HISTORY: Psoas abscess. COMPARISON: MR 06/03/2017 A diffuse disc bulge is present a tilt table L1-2 level. There is minimal compression of the thecal sac. The L1 nerves exit the neural foramina without compression. A diffuse disc bulge is present at the L2-3 level. There is minimal compression of the thecal sac. There is compression of the right L2 nerve in the neural foramina. The left L2 nerve exits the neural foramina without compression. A diffuse disc bulge is present at the L3-4 level. There is minimal compression of the thecal sac. There is loss of height of the L3-4 intervertebral discs. There is destruction of the endplates of the L3 and 4 vertebral bodies adjacent to the disc. There is sclerosis in the L3 and 4 endplate regions. These findings are consistent with discitis osteomyelitis. The L3 nerve exits the neural foramina without compression. A diffuse disc bulge is present at the L4-5 level. There is minimal compression of the thecal sac. There is hypertrophy of the posterior articulating facets. The L4 nerves exit the neural foramina without compression. There is no disc bulge or herniation a the L5-S1 level. There is hypertrophy of the posterior articulating facets. The L5 nerves exit the neural foramina without compression. The L4-5 intervertebral disc is decreased in height consistent with disc degeneration. There is no subluxation. Drainage tubes are present in the right psoas muscle and right posterior paravertebral soft-tissue at the L3 level. Small collections of air are present in the surrounding soft tissue. The previously noted right psoas and right posterior paravertebral abscesses are not seen in the present examination. IMPRESSION: 1. Findings consistent with discitis osteomyelitis at the L3-4 level. 2. There are drainage tubes in the right psoas muscle and right posterior paravertebral soft tissue at the L3 level at the sites of previously seen abscesses.. The abscesses are not seen in this examination. Signed by Filiberto Graves MD 06/06/2017 07:57 A
[2017-06-05] MEDS: SODIUM CHLORIDE 0.9% INJ 10 ML SYR IV SCH (18:34)
[2017-06-05] MEDS: traZODone 100 MG TAB PO SCH (20:35)
[2017-06-06] VITALS (7 sets, daily range): BP systolic 137–170; BP diastolic 85–111
[2017-06-06] MEDS: KETOROLAC 30 MG/ML VIAL (J1885) IV SCH ×4 (02:00→20:29)
[2017-06-06] MEDS: SODIUM CHLORIDE 0.9% INJ 10 ML SYR IV SCH ×2 (05:13→17:31)
[2017-06-06] MEDS: PERCOCET 5MG/325MG TAB PO PRN ×3 (05:25→16:51)
[2017-06-06 06:16] LABS: ANION GAP 4 MEQ/L (8-16); BLOOD UREA NITROGEN 14 MG/DL (7-18); CALCIUM LEVEL 7.9 MG/DL (8.5-10.1); CARBON DIOXIDE LEVEL 32 MEQ/L (21-32); CHLORIDE LEVEL 102 MEQ/L (98-107); CREATININE FOR GFR 0.54 MG/DL (0.55-1.02); GLOMERULAR FILTRATION RATE > 60.0 (>58); GLUCOSE, FASTING 77 MG/DL (70-105); POTASSIUM SERUM 4.4 MEQ/L (3.5-5.1); SODIUM LEVEL 138 MEQ/L (136-145)
[2017-06-06 06:20] LABS: ERYTHROCYTE SEDIMENTATION RATE 65 mm/hr (0-20)
[2017-06-06 06:31] LABS: BASO # 0.1 K/mm3 (0.0-0.2); BASO % 0.7 % (0.0-1.0); EOS # 0.4 K/mm3 (0.0-0.50); EOS % 2.7 % (0.0-3.0); LARGE UNSTAINED CELL # 0.2 K/mm3 (0.0-0.4); LARGE UNSTAINED CELL % 1.3 % (0.0-4.0); LYMPH # 2.6 K/mm3 (1.5-4.5); LYMPH % 18.2 % (24.0-44.0); MEAN CORPUSCULAR HEMOGLOBIN 29.5 pg (27.0-33.0); MEAN CORPUSCULAR HGB CONC 33.6 g/dl (32.0-36.5); MONO # 0.6 K/mm3 (0.0-0.8); MONO % 4.3 % (0.0-5.0); NEUTROPHILS # 10.4 K/mm3 (1.8-7.7); NEUTROPHILS % 72.9 % (36.0-66.0); PLATELET COUNT, AUTOMATED 522 k/mm3 (150-450); RED CELL DISTRIBUTION WIDTH 13.6 % (11.5-14.5); WHITE BLOOD COUNT 14.2 K/mm3 (4.0-10.0)
[2017-06-06] MEDS: ASCORBIC ACID 500 MG TAB PO SCH (08:17)
[2017-06-06] MEDS: DULoxetine 30 MG CAP (CYMBALTA) PO SCH (08:18)
[2017-06-06] MEDS: POTASSIUM CHLORIDE 10 MEQ SR TABLET PO SCH ×2 (08:18→20:28)
[2017-06-06] MEDS: LACTOBACILLUS ACIDOPHILUS CAP (BACID) PO SCH ×2 (08:18→20:27)
[2017-06-06] MEDS: BISACODYL 10 MG SUPP PR PRN (08:24)
[2017-06-06] MEDS: MORPHINE 2 MG/ML 1ML SYRINGE IV PRN ×2 (09:00→22:06)
[2017-06-06] MEDS ORDERED: MOM 30ML SUSPENSION UDC PO PRN (11:00)
[2017-06-06] MEDS: SENNA 8.6 MG TAB (SENOKOT) PO PRN (11:01)
[2017-06-06] MEDS: DOCUSATE SODIUM 100 MG CAP PO SCH ×2 (11:01→20:28)
--- NOTE | 2017-06-06 11:05 | IPNPDOC ---
Subjective Date Seen The patient was seen on 06/06/17. Subjective Chief Complaint/HPI The patient is a 47-year-old female admitted with a reason for visit of Psoas Abscess. Events since last encounter c/o increased right sided back pain with RLE numbness. also constipation. No BM x 7 days. Unrelieved with Dulcolax or Miralax. Repeat MRI pending. Constitutional: Denies: Chills, Fever, Night Sweats ENT: Denies: Head Aches, Ear Pain, Dysphagia Skin: Denies: Rash, Lesions, Breakdown Pulmonary: Denies: Dyspnea, Cough Cardiovascular: Denies: Chest Pain, Palpitations, Orthopnea, Paroxysmal Noc. Dyspnea, Lt Headedness Gastrointestinal: Reports: Constipation Genitourinary: Denies: Dysuria, Frequency, Incontinence, Retention Neurological: Reports: Other Symptoms (RLE numbness) Objective Physical Examination General Exam: Positive: Alert, Cooperative, Moderate Distress Eye Exam: Positive: PERRLA ENT Exam: Positive: Atraumatic, Mucous membr. moist/pink, Pharynx Normal Neck Exam: Positive: Supple, Negative: JVD Chest Exam: Positive: Clear to auscultation, Normal air movement, Negative: Rales, Rhonchi, Wheezing Heart Exam: Positive: Rate Normal, Regular Rhythm, Normal S1, Normal S2 Telemetry: Positive: No significant arrhythmia Abdomen Exam: Positive: Normal bowel sounds, Soft, Negative: Tenderness, Hepatospenomegaly Extremity Exam: Positive: Normal pulses, Tenderness (right hip and low back lumbar spine), Negative: Clubbing, Cyanosis, Edema, Swelling Skin Exam: Negative: Rash, Breakdown Neuro Exam: Positive: Normal Gait, Normal Speech, Strength at 5/5 X4 ext, Reflexes 2+ (bilateral 2/4 knee/Achilles jerk), Negative: Sensation Intact (decreased pain sensation R anterior thigh) Psych Exam: Positive: Mental status NL Assessment /Plan Problems (1) Staphylococcus aureus sepsis Status: Acute Response to Treatment: Stable Problem Text: Favor R psoas abscess source cefazolin-plan repeat 6W cefazolin (began 06/01) (holding vanco) via PICC to place 06/05/1706/05 14.8 18-Tm 100.5 06/03 14.8, CRP 15/ESR 73, afebrile; D3 vanco held due to BCX c MSSA 7/15 WBC 15.2 (17.0), Tmax 100 06/01 2000, check CT head given persistent frontal BRADY s neuro deficits 05/31 CRP 21/ESR 63 06/03/17 BCX P 06/02/17 BCX NG 05/31/17 BCX 2/2 MSSA 06/01/17 TTE-Dr. Valle: IMPRESSION: 1. Normal global left ventricular systolic function. There are some features of left ventricular diastolic dysfunction manifested by abnormal relaxation. 2. Aortic valve sclerosis with trace aortic regurgitation and trivial aortic stenosis. Could not rule out old vegetation on the aortic valve. In view of her history, to consider a transesophageal echocardiogram. 3. Trace to mild mitral regurgitation. 4. Trace tricuspid regurgitation with a normal calculated pulmonary artery systolic pressure. 5. Trace pericardial effusion. No evidence of cardiac tamponade. 6. Atrial septal aneurysm with possible patent foramen ovale. Once again, to consider a transesophageal echocardiogram. Per Dr. Moreland: minimal indication for PHILOMENA. Monitor patient. appreciate ID/Betty input (2) Epidural abscess Problem Text: 06/04 s/p ID-Betty 06/03/17 new 6 mm abcscess in the right L2 neural foramen (3) Discitis Status: Acute Response to Treatment: Stable Problem Text: 06/06/17: Repeat MRI ordered by Neurosurgery. Pain control with oxycodone and morphine. 06/04 - Neurosurgery taking patient to OR this afternoon due to findings on back MRI of: 1. Findings consistent with discitis/osteomyelitis at the L3-4 level that are unchanged compared to the previous study. 2. There is a small enhancing right paravertebral phlegmon with extension into the right L2 neural foramen. A 6 mm abscess is present in the right L2 neural foramen. There is extension into the right anterior aspect of the spinal canal. A new 6 mm epidural abscess is present in the anterior spinal canal at this level. There has been a slight increase in size of the epidural phlegmon. These findings produce minimal thecal sac compression. History of L3/4 MSSA diskitis admitted on 02/16 and discharged on 02/27/17 The patient had a peripherally inserted central catheter (PICC) line. The PICC line was removed on 04/06 as the patient was cured from the diskitis. 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 There is decreased enhancement of the L3 and L4 vertebral bodies and L3-4 intervertebral disc. There are new abscesses in the right psoas muscle and right posterior paravertebral soft tissue extending from the L1-2 level inferior to the L4-5 level. A small right intraforaminal and epidural abscess is present at the L2-3 level. There is minimal compression of the thecal sac. (4) Psoas abscess Status: Acute Response to Treatment: Stable Problem Text: R paraspinal wound vac in place 06/04 s/p drainage of psoas and paraspinal muscle abscesses by Betty hernandez CT localization 06/03 given MSO4 4 (up from 2 q3H) and ketorolac 30 IV x 1 secondary to increased pain/R anterior thigh numbness (patient reports ketorolac worked best) , given worsening pain/numbness-favor STAT MRI s/c andrew LS spine/pelvis R buttock , case d/w Dr. Adair and Dr. [facility] who agree c repeat imaging (obvious concern given 05/31 MRI c right L2/3 intraforaminal and epidural abscess c thecal sac compression) 06/02/17 recurrent R paralumbar pain radiating to R anterior thigh, similar to [id number] need to repeat MRI to r/o reaccumulation 06/01/17 R psoas abscess drainage of 17 cc fluid by IR 06/01/17 WCX / S. aureus consult PFS ? recurrent IV drug use-parents state she has not (5) Anemia Status: Acute Problem Text: H/H 9.7/29.1 upon admission; Hgb improved to baseline without intervention - Iron studies are consistent with iron deficiency - Occult stool is pending (6) Diarrhea Status: Acute Response to Treatment: Stable Problem Text: No BM since admission-prior to admission diarrhea Taking adequate po; therefore, 06/03 SLIV 06/03 + Ducolax supp (patient states usually works best for her) (7) Hypokalemia Status: Resolved Response to Treatment: Stable Problem Text: favor 2 diarrhea 06/03 3.8 on 40 BID/ Mg 2.0 06/02 back down to 3.2 on 20; therefore, increased to 40 BID (8) Anxiety Status: Chronic Response to Treatment: Stable Problem Text: continue to monitor stable (9) History of substance use Status: Chronic Response to Treatment: Stable Problem Text: patient continues to deny substance abuse. has been following with [facility] behavioral health addiction services. 05/31/17 -UDS on admission consult PFS ? recurrent IV drug use (10) UTI (urinary tract infection) Status: Acute Response to Treatment: Stable Problem Text: rx as per sepsis 05/31/17 UCX E. coli >100K-pansensitive Plan/VTE VTE Prophylaxis Ordered?: Yes Plan Family Medicine Attending Note: I saw and examined Ms. Cardona this morning, at which point she was relatively comfortable - this was prior to her having worsening pain. I discussed her care with ISAIAH Thomas and I agree with her note above. Repeat MRI of back showed that disciitis is still present at L3-L4 and otherwise various muscle abscess are either improved or in resolved. Recommend continue IV antibiotic therapy and pain management as above. (KES) VS, I&O, 24H, Fishbone Vital Signs/I&O Vital Signs Date Time Temp Pulse Resp B/P (MAP) Pulse Ox O2 Delivery O2 Flow Rate FiO2 06/06/17 09:10 18 06/06/17 08:00 98.6 110 164/111 (128) 98 Room Air 06/04/17 16:20 3 I&O- Last 24 Hours up to 6 AM 06/06/17 06:00 Intake Total 1200 ml Output Total 1850 ml Balance -650 ml Laboratory Data 24H LABS Laboratory Tests 2 06/06/17 05:00: White Blood Count 14.2H, Red Blood Count 3.30L, Hemoglobin 9.8L, Hematocrit 29.1L, Mean Corpuscular Volume 88.0, Mean Corpuscular Hemoglobin 29.5, Mean Corpuscular Hemoglobin Concent 33.6, Red Cell Distribution Width 13.6, Platelet Count 522H, Neutrophils (%) (Auto) 72.9H, Lymphocytes (%) (Auto) 18.2L, Monocytes (%) (Auto) 4.3, Eosinophils (%) (Auto) 2.7, Basophils (%) (Auto) 0.7, Neutrophils # (Auto) 10.4H, Lymphocytes # (Auto) 2.6, Monocytes # (Auto) 0.6, Eosinophils # (Auto) 0.4, Basophils # (Auto) 0.1, Large Unclassified Cells % 1.3 , Large Unclassified Cells # 0.2, Erythrocyte Sedimentation Rate 65H, Anion Gap 4L, Glomerular Filtration Rate > 60.0, Blood Urea Nitrogen 14, Creatinine 0.54L , Sodium Level 138, Potassium Level 4.4, Chloride Level 102, Carbon Dioxide Level 32, Calcium Level 7.9L, C-Reactive Protein, Quantitative 5.93H CBC/BMP Laboratory Tests 06/06/17 05:00 Red Blood Count 3.30 L, Mean Corpuscular Volume 88.0, Mean Corpuscular Hemoglobin 29.5, Mean Corpuscular Hemoglobin Concent 33.6, Red Cell Distribution Width 13.6, Neutrophils (%) (Auto) 72.9 H, Lymphocytes (%) (Auto) 18.2 L, Monocytes (%) (Auto) 4.3, Eosinophils (%) (Auto) 2.7, Basophils (%) ( Auto) 0.7, Neutrophils # (Auto) 10.4 H, Lymphocytes # (Auto) 2.6, Monocytes # ( Auto) 0.6, Eosinophils # (Auto) 0.4, Basophils # (Auto) 0.1, Calcium Level 7.9 L Microbiology Microbiology 06/03/17 Blood Culture - Preliminary, Resulted No Growth after 72 hours. All specime... 06/02/17 Blood Culture - Preliminary, Resulted No Growth after 72 hours. All specime... 05/31/17 Blood Culture - Final, Complete Staphylococcus Aureus 05/31/17 Blood Culture - Final, Complete Staphylococcus Aureus 06/01/17 Anaerobic Culture - Final, Complete 06/01/17 Anaerobic Culture - Final, Complete 05/31/17 Urine Culture - Final, Complete Escherichia Coli 06/04/17 Acid Fast Stain, Received Pending 06/04/17 Mycobacterial Culture, Received Pending 06/04/17 Fungal Smear, Received Pending 06/04/17 Fungal Culture, Received Pending 06/04/17 Gram Stain - Final, Complete 06/04/17 Wound Culture - Final, Complete Staphylococcus Aureus 06/04/17 Anaerobic Culture - Final, Complete 06/01/17 Gram Stain - Final, Complete 06/01/17 Abscess Culture - Final, Complete Staphylococcus Aureus 06/01/17 Gram Stain - Final, Complete 06/01/17 Abscess Culture - Final, Complete Staphylococcus Aureus Serena Chow Jun 06, 2017 11:05 JOLLY DICKINSON MD Jun 06, 2017 16:23
--- NOTE | 2017-06-06 14:01 | REP ---
MR LUMBAR SPINE WITHOUT AND WITH CONTRAST: HISTORY: Psoas abscess. CONTRAST: ProHance 12 mL. COMPARISON: 06/03/2017 Decreased signal intensity on T2-weighted images is present in the L3-4 and L4-5 intervertebral discs. The discs are decreased in height. These findings are consistent with disc degeneration. Increased signal intensity on T2-weighted images is present in the L3 and L4 vertebral bodies and L3-4 intervertebral discs. There is mild heterogeneous enhancement with contrast. These findings are consistent with discitis/ osteomyelitis, that appear essentially unchanged compared to the previous study. An abscess is present in the right psoas muscle. A drainage tube is present in the abscess. The abscess measures 2.2 cm in the transverse by 0.5 cm in AP dimensions and is decreased in size compared to the previous study. The abscess extends from the L1-2 intervertebral disc inferior to the L3 vertebral body. A small enhancing paravertebral phlegmon is present. This is decreased in size compared to the previous study. There has been resolution of the previously noted small right intraforaminal and right anterior epidural abscess. A small abscess 6 mm in width is present at the anterior epidural space at the L2 level. This is unchanged in size compared to the previous study. A small amount of enhancing epidural phlegmon is present that is decreased compared to the previous study. There is minimal compression of the thecal sac. There is compression of the right L2 nerve in the neural foramen. An abscess is present in the right posterior paravertebral musculature. A drainage tube is present the abscess. The abscess measures 1.1 cm in transverse by 2.1 cm in AP dimensions and is decreased in size compared to the previous study. The abscess extends from the L3 level inferior to the L4-5 intervertebral disc. Two small abscesses measuring 3 and 6 mm are present medial to this abscess. There is a 9 mm abscess present in the left posterior paravertebral musculature at the level of the L4-5 intervertebral disc. Several small abscesses seen in the previous examination are not seen. Disc bulges are present at the L2-3, L3-4 and L4-5 levels. There is minimal compression of the thecal sac. IMPRESSION: 1. Findings consistent with discitis, osteomyelitis at the L3-4 level essentially unchanged compared to the previous study. 2. There has been a decrease in size of the right psoas and several right posterior paravertebral soft tissue abscesses. There has been resolution of several small right posterior paravertebral soft tissue abscesses. Signed by Filiberto Graves MD 06/06/2017 02:07 P
--- NOTE | 2017-06-06 15:08 | RO ---
DATE OF PROCEDURE: 06/04/2017 PREPROCEDURE DIAGNOSIS: Multiple paraspinal abscesses from L1-2 through L4-5 on the right. POSTPROCEDURE DIAGNOSIS: Multiple paraspinal abscesses from L1-2 through L4-5 on the right. PROCEDURE: Drainage of multiple paraspinal abscesses. SURGEON: Dr. Karishma Hernández LIVING NURSE: ANESTHESIA: FINDINGS: Please see my recent hospital progress notes for detail. The patient had been suffering from recurrent infections for several months. This started with pyelonephritis followed by discitis and epidural abscess which was treated with antibiotics per Dr. Adair. She relapsed several days ago with severe pain in the low back and early right L3 radicular pain. She was drained by the interventional radiologist (IR) department with some improvement. Though, soon the pain got much worse and the MRI showed recurrence and enlargement of the multiple abscess cavities in the right paraspinal region and also in the psoas on L2-3 region. The patient was seen in the preoperative area with her parents. The patient and family were aware of all options. They were aware of the grave outlook and they understood the scope, expected outcome, sequel and complications of the proposed salvage and decompression. They understood no guarantees of any kind could be given regarding complete and total removal of the infection. They understood the risk of surgery included by not limited to , paralysis, coma, meningitis, persistent worsening of symptoms and/or deficit, widespread destination of infection, septic shock, and in ability to remove the entire pus cavities, pulmonary embolus (PE), deep venous thrombosis (DVT), myocardial infarction (GA), bleeding, further infection and/or any catastrophic sequela. The patient and parents wished to proceed with surgery and after informed consent and after all matters pertaining to surgery, anesthesia and followup care have been discussed, as well as the nature course of illness was discussed a few times at her request she was taken to the operating room. DESCRIPTION OF PROCEDURE: Once in the operating room, the area of surgery was prepped and draped in the usual sterile fashion. Dr. Lucas Givens from radiology had currently marked the sites for the bigger abscesses and using fluoroscopic guidance, the skin incision was given several centimeters on the midline on the right. Minimal dorsal fascia was reached and incised to the right of the midline. There was significant congestion and induration or inflammatory? reaction in the subcutaneous tissue as well as over the lumbodorsal fascia with an increased vascularity. The lumbodorsal fascia was opened and the abscess cavity was entered. They appeared to be loculated and also the adjoining abscess was aspirated. Attention was now paid around the L2-L3 region where the transverse process of L2 were reached. An angio cath was introduced into the expected site of the abscess cavity, thus the abscess cavity was reached. It was opened and it also appeared to be loculated and the muscle was quite inflamed and swollen , most of the purulent gisele pus was removed. The pus was sent for pathology examination. At this time, a drain was placed in these two regions and the wound was closed in one layer and was covered with a Preveno vacuum dressing and a drain was attached to the NOHELIA suction bulb. Blood loss was negligible of maybe 20 mL according to the anesthesiologist. The patient tolerated the procedure well. Operative findings were discussed with the patient's parents in the waiting room. LYNDA
[2017-06-06] MEDS: MIRALAX *UNIT DOSE* 17GM PACKET PO PRN (16:50)
[2017-06-06] MEDS: traZODone 100 MG TAB PO SCH (20:27)
--- NOTE | 2017-06-06 22:30 | IPN ---
DATE: 06/05/2017 The patient was seen in PCU. She was doing well postoperatively day #1. She states her back pain and her thigh numbness have markedly improved. She was not requiring too many narcotics. She had no fever or chills. LABORATORY DATA: White count is 14.8, hemoglobin 10, hematocrit 30.1, platelets 508, 85% neutrophils, 9% lymphocytes, 4% monocytes. ESR 83. Sodium 138, potassium 4.9, chloride 102, bicarbonate 29, BUN 16, creatinine 0.7, glucose 128, calcium 8.2, CRP 11.2 down from 17.5. Intraoperative culture from the epidural abscess is positive for MSSA. Blood cultures were negative on 06/02/2017 and 06/03/2017, two sets were positive on 06/01/2017. Followup lumbar CT done on 06/05/2017, discitis at L3-L4 and drainage tubes in the right psoas abscess and right posterior paravertebral soft tissue at L3 level at the sites of previously seen abscesses, the abscesses are not seen on this examination. On physical exam, temperature is 98.6, pulse 67, respirations 18, oxygen saturation 97% on room air. Blood pressure 136/92. Heart: Normal S1, S2. No murmurs. Lungs are clear. No wheezes, rales or rhonchi. Abdomen is soft, nontender. Back: Mild lumbosacral tenderness. There is a large dressing with a wound VAC. Extremities: No edema. Minimal decreased sensation in the anterior thigh. IMPRESSION: 1. L3-4 discitis with epidural abscess at L2-L3 and right psoas abscess and paravertebral abscesses have been drained. All cultures positive for MSSA. The patient is on cefazolin 2 grams IV every 8 hours, doing well. She will need 6 weeks of IV antibiotics, end of treatment will be end of June, 07/18/2017. A PICC line has been placed. 2. Chronic hepatitis C genotype 3, not treated. Normal LFTs at this point. PLAN Continue IV cefazolin. Monitor CRP and sedimentation rate twice a week, not daily.
[2017-06-07] MEDS: KETOROLAC 30 MG/ML VIAL (J1885) IV SCH ×4 (02:34→20:37)
[2017-06-07] MEDS: PERCOCET 5MG/325MG TAB PO PRN ×3 (02:34→15:51)
[2017-06-07 04:00] VITALS: BP 128/77
[2017-06-07] MEDS: SODIUM CHLORIDE 0.9% INJ 10 ML SYR IV SCH ×2 (05:17→18:25)
[2017-06-07 05:42] LABS: ANION GAP 3 MEQ/L (8-16); BLOOD UREA NITROGEN 11 MG/DL (7-18); CALCIUM LEVEL 8.8 MG/DL (8.5-10.1); CARBON DIOXIDE LEVEL 32 MEQ/L (21-32); CHLORIDE LEVEL 100 MEQ/L (98-107); CREATININE FOR GFR 0.59 MG/DL (0.55-1.02); GLOMERULAR FILTRATION RATE > 60.0 (>58); GLUCOSE, FASTING 94 MG/DL (70-105); POTASSIUM SERUM 4.6 MEQ/L (3.5-5.1); SODIUM LEVEL 135 MEQ/L (136-145)
[2017-06-07 05:49] LABS: BASO % 0.4 % (0.0-1.0); EOS # 0.4 K/mm3 (0.0-0.50); LARGE UNSTAINED CELL # 0.2 K/mm3 (0.0-0.4); LARGE UNSTAINED CELL % 1.4 % (0.0-4.0); LYMPH # 1.6 K/mm3 (1.5-4.5); LYMPH % 12.4 % (24.0-44.0); MEAN CORPUSCULAR HEMOGLOBIN 28.8 pg (27.0-33.0); MEAN CORPUSCULAR HGB CONC 32.6 g/dl (32.0-36.5); MEAN CORPUSCULAR VOLUME 88.3 fl (80.0-96.0); MONO # 0.5 K/mm3 (0.0-0.8); MONO % 4.3 % (0.0-5.0); NEUTROPHILS # 8.7 K/mm3 (1.8-7.7); NEUTROPHILS % 77.4 % (36.0-66.0); PLATELET COUNT, AUTOMATED 490 k/mm3 (150-450); RED CELL DISTRIBUTION WIDTH 13.8 % (11.5-14.5); WHITE BLOOD COUNT 11.2 K/mm3 (4.0-10.0)
[2017-06-07 06:39] LABS: ERYTHROCYTE SEDIMENTATION RATE 126 mm/hr (0-20)
[2017-06-07 07:30] VITALS: BP 133/88
[2017-06-07] MEDS: LACTOBACILLUS ACIDOPHILUS CAP (BACID) PO SCH ×2 (08:51→20:40)
[2017-06-07] MEDS: POTASSIUM CHLORIDE 10 MEQ SR TABLET PO SCH ×2 (08:51→20:39)
[2017-06-07] MEDS: DULoxetine 30 MG CAP (CYMBALTA) PO SCH (08:52)
[2017-06-07] MEDS: ASCORBIC ACID 500 MG TAB PO SCH (08:52)
[2017-06-07] MEDS: DOCUSATE SODIUM 100 MG CAP PO SCH ×2 (08:53→20:39)
[2017-06-07] MEDS: MIRALAX *UNIT DOSE* 17GM PACKET PO PRN (10:30)
--- NOTE | 2017-06-07 11:20 | IPNPDOC ---
Subjective Date Seen The patient was seen on 06/07/17. Subjective Chief Complaint/HPI The patient is a 47-year-old female admitted with a reason for visit of Psoas Abscess. Events since last encounter pain is better controlled today. ambulating w/o difficulty. Denies c/o. Constitutional: Denies: Chills, Fever, Night Sweats Pulmonary: Denies: Dyspnea, Cough Cardiovascular: Denies: Chest Pain, Palpitations, Orthopnea, Paroxysmal Noc. Dyspnea, Lt Headedness Gastrointestinal: Denies: Nausea, Vomiting, Abdominal Pain, Diarrhea, Constipation Genitourinary: Denies: Dysuria, Frequency, Incontinence, Retention Musculoskeletal: Reports: Back Pain, Denies: Neck Pain, Joint Pain, Muscle Pain, Spasms Objective Physical Examination General Exam: Positive: Alert, Cooperative, Moderate Distress Eye Exam: Positive: PERRLA ENT Exam: Positive: Atraumatic, Mucous membr. moist/pink, Pharynx Normal Neck Exam: Positive: Supple, Negative: JVD Chest Exam: Positive: Clear to auscultation, Normal air movement, Negative: Rales, Rhonchi, Wheezing Heart Exam: Positive: Rate Normal, Regular Rhythm, Normal S1, Normal S2 Telemetry: Positive: No significant arrhythmia Abdomen Exam: Positive: Normal bowel sounds, Soft, Negative: Tenderness, Hepatospenomegaly Extremity Exam: Positive: Normal pulses, Tenderness (right hip and low back lumbar spine), Negative: Clubbing, Cyanosis, Edema, Swelling Skin Exam: Negative: Rash, Breakdown Neuro Exam: Positive: Normal Gait, Normal Speech, Strength at 5/5 X4 ext, Reflexes 2+ (bilateral 2/4 knee/Achilles jerk), Negative: Sensation Intact (decreased pain sensation R anterior thigh) Psych Exam: Positive: Mental status NL Assessment /Plan Problems (1) Staphylococcus aureus sepsis Status: Acute Response to Treatment: Stable Problem Text: cefazolin-plan repeat 6W cefazolin (began 06/01) (holding vanco) via PICC to place 06/05/1706/07: WBC 11.4, afebrile 06/05 14.8 -Tm 100.5 06/03 14.8, CRP 15/ESR 73, afebrile; D3 vanco held due to BCX c MSSA 06/02 WBC 15.2 (17.0), Tmax 100 06/01 2000, check CT head given persistent frontal BRADY s neuro deficits 05/31 CRP 21/ESR 63 06/03/17 BCX P 06/02/17 BCX NG 05/31/17 BCX 2/2 MSSA 06/01/17 TTE-Dr. Valle: IMPRESSION: 1. Normal global left ventricular systolic function. There are some features of left ventricular diastolic dysfunction manifested by abnormal relaxation. 2. Aortic valve sclerosis with trace aortic regurgitation and trivial aortic stenosis. Could not rule out old vegetation on the aortic valve. In view of her history, to consider a transesophageal echocardiogram. 3. Trace to mild mitral regurgitation. 4. Trace tricuspid regurgitation with a normal calculated pulmonary artery systolic pressure. 5. Trace pericardial effusion. No evidence of cardiac tamponade. 6. Atrial septal aneurysm with possible patent foramen ovale. Once again, to consider a transesophageal echocardiogram. Per Dr. Moreland: minimal indication for PHILOMENA. Monitor patient. appreciate ID/Lachellei input (2) Epidural abscess Problem Text: 06/07: wound vac in place. monitor with repeat MRI 06/08/17 for new forming abscess. See MRI report and Consult note. 06/04 s/p ID-Betty 06/03/17 new 6 mm abcscess in the right L2 neural foramen (3) Discitis Status: Acute Response to Treatment: Stable Problem Text: 06/06/17: Repeat MRI ordered by Neurosurgery. Pain control with oxycodone and morphine. 06/04 - Neurosurgery taking patient to OR this afternoon due to findings on back MRI of: 1. Findings consistent with discitis/osteomyelitis at the L3-4 level that are unchanged compared to the previous study. 2. There is a small enhancing right paravertebral phlegmon with extension into the right L2 neural foramen. A 6 mm abscess is present in the right L2 neural foramen. There is extension into the right anterior aspect of the spinal canal. A new 6 mm epidural abscess is present in the anterior spinal canal at this level. There has been a slight increase in size of the epidural phlegmon. These findings produce minimal thecal sac compression. History of L3/4 MSSA diskitis admitted on 02/16 and discharged on 02/27/17 The patient had a peripherally inserted central catheter (PICC) line. The PICC line was removed on 04/06 as the patient was cured from the diskitis. 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 There is decreased enhancement of the L3 and L4 vertebral bodies and L3-4 intervertebral disc. There are new abscesses in the right psoas muscle and right posterior paravertebral soft tissue extending from the L1-2 level inferior to the L4-5 level. A small right intraforaminal and epidural abscess is present at the L2-3 level. There is minimal compression of the thecal sac. (4) Psoas abscess Status: Acute Response to Treatment: Stable Problem Text: R paraspinal wound vac in place 06/04 s/p drainage of psoas and paraspinal muscle abscesses by Lorenwai p CT localization 06/03 given MSO4 4 (up from 2 q3H) and ketorolac 30 IV x 1 secondary to increased pain/R anterior thigh numbness (patient reports ketorolac worked best) , given worsening pain/numbness-favor STAT MRI s/c andrew LS spine/pelvis R buttock , case d/w Dr. Adair and Dr. Ingram Radiology who agree c repeat imaging (obvious concern given 05/31 MRI c right L2/3 intraforaminal and epidural abscess c thecal sac compression) 06/02/17 recurrent R paralumbar pain radiating to R anterior thigh, similar to [id number] need to repeat MRI to r/o reaccumulation 06/01/17 R psoas abscess drainage of 17 cc fluid by IR 06/01/17 WCX 2/2 S. aureus consult PFS ? recurrent IV drug use-parents state she has not (5) Anemia Status: Acute Problem Text: H/H 9.7/29.1 upon admission; Hgb improved to baseline without intervention - Iron studies are consistent with iron deficiency - Occult stool is pending (6) Diarrhea Status: Acute Response to Treatment: Stable Problem Text: No BM since admission-prior to admission diarrhea Taking adequate po; therefore, 06/03 SLIV 06/03 + Ducolax supp (patient states usually works best for her) (7) Hypokalemia Status: Resolved Response to Treatment: Stable Problem Text: favor 2 diarrhea 06/03 3.8 on 40 BID/ Mg 2.0 06/02 back down to 3.2 on 20; therefore, increased to 40 BID (8) Anxiety Status: Chronic Response to Treatment: Stable Problem Text: continue to monitor stable (9) History of substance use Status: Chronic Response to Treatment: Stable Problem Text: patient continues to deny substance abuse. has been following with [facility] behavioral health addiction services. 05/31/17 -UDS on admission consult PFS ? recurrent IV drug use (10) UTI (urinary tract infection) Status: Acute Response to Treatment: Stable Problem Text: rx as per sepsis 05/31/17 UCX E. coli >100K-pansensitive Plan/VTE VTE Prophylaxis Ordered?: Yes VS, I&O, 24H, Fishbone Vital Signs/I&O Vital Signs Date Time Temp Pulse Resp B/P (MAP) Pulse Ox O2 Delivery O2 Flow Rate FiO2 06/07/17 09:52 20 06/07/17 07:30 98.7 97 133/88 (103) 97 Room Air 06/04/17 16:20 3 I&O- Last 24 Hours up to 6 AM 06/07/17 05:59 Intake Total 600 ml Output Total 1280 ml Balance -680 ml Laboratory Data 24H LABS Laboratory Tests 2 06/07/17 05:16: White Blood Count 11.2H, Red Blood Count 3.69L, Hemoglobin 10.6L, Hematocrit 32.6L, Mean Corpuscular Volume 88.3, Mean Corpuscular Hemoglobin 28.8, Mean Corpuscular Hemoglobin Concent 32.6, Red Cell Distribution Width 13.8, Platelet Count 490H, Neutrophils (%) (Auto) 77.4H, Lymphocytes (%) (Auto) 12.4L, Monocytes (%) (Auto) 4.3, Eosinophils (%) (Auto) 4.0H, Basophils (%) (Auto) 0.4 , Neutrophils # (Auto) 8.7H, Lymphocytes # (Auto) 1.6, Monocytes # (Auto) 0.5, Eosinophils # (Auto) 0.4, Basophils # (Auto) 0.0, Large Unclassified Cells % 1.4 , Large Unclassified Cells # 0.2, Erythrocyte Sedimentation Rate 126H, Anion Gap 3L, Glomerular Filtration Rate > 60.0, Blood Urea Nitrogen 11, Creatinine 0.59, Sodium Level 135L, Potassium Level 4.6, Chloride Level 100, Carbon Dioxide Level 32, Calcium Level 8.8, C-Reactive Protein, Quantitative 4.87H CBC/BMP Laboratory Tests 06/07/17 05:16 Red Blood Count 3.69 L, Mean Corpuscular Volume 88.3, Mean Corpuscular Hemoglobin 28.8, Mean Corpuscular Hemoglobin Concent 32.6, Red Cell Distribution Width 13.8, Neutrophils (%) (Auto) 77.4 H, Lymphocytes (%) (Auto) 12.4 L, Monocytes (%) (Auto) 4.3, Eosinophils (%) (Auto) 4.0 H, Basophils (%) ( Auto) 0.4, Neutrophils # (Auto) 8.7 H, Lymphocytes # (Auto) 1.6, Monocytes # ( Auto) 0.5, Eosinophils # (Auto) 0.4, Basophils # (Auto) 0.0, Calcium Level 8.8 Microbiology Microbiology 06/03/17 Blood Culture - Preliminary, Resulted No Growth after 72 hours. All specime... 06/02/17 Blood Culture - Final, Complete NO GROWTH AFTER 5 DAYS 05/31/17 Blood Culture - Final, Complete Staphylococcus Aureus 05/31/17 Blood Culture - Final, Complete Staphylococcus Aureus 06/01/17 Anaerobic Culture - Final, Complete 06/01/17 Anaerobic Culture - Final, Complete 05/31/17 Urine Culture - Final, Complete Escherichia Coli 06/04/17 Acid Fast Stain - Final, Resulted 06/04/17 Mycobacterial Culture, Resulted Pending 06/04/17 Fungal Smear - Final, Resulted 06/04/17 Fungal Culture, Resulted Pending 06/04/17 Gram Stain - Final, Complete 06/04/17 Wound Culture - Final, Complete Staphylococcus Aureus 06/04/17 Anaerobic Culture - Final, Complete 06/01/17 Gram Stain - Final, Complete 06/01/17 Abscess Culture - Final, Complete Staphylococcus Aureus 06/01/17 Gram Stain - Final, Complete 06/01/17 Abscess Culture - Final, Complete Staphylococcus Aureus Serena Chow [facility] Jun 07, 2017 11:20
[2017-06-07 11:50] VITALS: BP 129/73
[2017-06-07 16:30] VITALS: BP 129/91
[2017-06-07] MEDS: traZODone 100 MG TAB PO SCH (20:39)
[2017-06-07] MEDS: SENNA 8.6 MG TAB (SENOKOT) PO PRN (20:39)
[2017-06-07 22:00] VITALS: BP 179/80
[2017-06-08] MEDS: KETOROLAC 30 MG/ML VIAL (J1885) IV SCH ×2 (02:30→08:09)
[2017-06-08] MEDS: SODIUM CHLORIDE 0.9% INJ 10 ML SYR IV SCH ×2 (05:41→17:30)
[2017-06-08] MEDS: PERCOCET 5MG/325MG TAB PO PRN ×3 (05:54→20:25)
[2017-06-08 06:00] VITALS: BP 126/79
[2017-06-08 06:06] LABS: BASO # 0.1 K/mm3 (0.0-0.2); BASO % 0.8 % (0.0-1.0); EOS # 0.5 K/mm3 (0.0-0.50); EOS % 5.4 % (0.0-3.0); LARGE UNSTAINED CELL # 0.2 K/mm3 (0.0-0.4); LARGE UNSTAINED CELL % 1.6 % (0.0-4.0); LYMPH # 1.9 K/mm3 (1.5-4.5); LYMPH % 18.6 % (24.0-44.0); MEAN CORPUSCULAR HEMOGLOBIN 28.3 pg (27.0-33.0); MEAN CORPUSCULAR HGB CONC 31.8 g/dl (32.0-36.5); MEAN CORPUSCULAR VOLUME 89.1 fl (80.0-96.0); MONO # 0.5 K/mm3 (0.0-0.8); MONO % 5.2 % (0.0-5.0); NEUTROPHILS # 6.8 K/mm3 (1.8-7.7); NEUTROPHILS % 68.4 % (36.0-66.0); PLATELET COUNT, AUTOMATED 491 k/mm3 (150-450); RED CELL DISTRIBUTION WIDTH 13.8 % (11.5-14.5); WHITE BLOOD COUNT 9.9 K/mm3 (4.0-10.0)
[2017-06-08 06:31] LABS: ALBUMIN 2.6 GM/DL (3.2-5.2); ALBUMIN/GLOBULIN RATIO 0.65 (1.00-1.93); ALKALINE PHOSPHATASE 57 U/L (45-117); ALT/SGPT 15 U/L (12-78); ANION GAP 4 MEQ/L (8-16); AST/SGOT 18 U/L (15-37); BILIRUBIN,TOTAL 0.3 MG/DL (0.2-1.0); BLOOD UREA NITROGEN 14 MG/DL (7-18); CALCIUM LEVEL 8.7 MG/DL (8.5-10.1); CARBON DIOXIDE LEVEL 31 MEQ/L (21-32); CHLORIDE LEVEL 104 MEQ/L (98-107); CREATININE FOR GFR 0.54 MG/DL (0.55-1.02); GLOMERULAR FILTRATION RATE > 60.0 (>58); GLUCOSE, FASTING 83 MG/DL (70-105); POTASSIUM SERUM 4.8 MEQ/L (3.5-5.1); SODIUM LEVEL 139 MEQ/L (136-145); TOTAL PROTEIN 6.6 GM/DL (6.4-8.2)
[2017-06-08] MEDS: POTASSIUM CHLORIDE 10 MEQ SR TABLET PO SCH ×2 (08:08→20:25)
[2017-06-08] MEDS: DOCUSATE SODIUM 100 MG CAP PO SCH ×2 (08:08→20:24)
[2017-06-08] MEDS: LACTOBACILLUS ACIDOPHILUS CAP (BACID) PO SCH ×2 (08:08→20:25)
[2017-06-08] MEDS: ASCORBIC ACID 500 MG TAB PO SCH (08:09)
[2017-06-08] MEDS: SODIUM CHLORIDE 0.9% INJ 10 ML SYR IV PRN ×2 (08:09→12:24)
[2017-06-08] MEDS: DULoxetine 30 MG CAP (CYMBALTA) PO SCH (08:09)
[2017-06-08] MEDS: MIRALAX *UNIT DOSE* 17GM PACKET PO PRN (09:56)
[2017-06-08] MEDS ORDERED: CEFA2INJ IV (11:15)
--- NOTE | 2017-06-08 16:57 | REP ---
MRI LUMBAR SPINE WITHOUT AND WITH CONTRAST: HISTORY: A paraspinal abscess. CONTRAST: ProHance 12 mL. COMPARISON: 06/06/2017. Decreased signal intensity on T2 weighted images is present in the L3-4 and L4-5 intervertebral discs. These findings are consistent with disc degeneration. Increased signal intensity on T2-weighted images is present in the L3 and L4 vertebral bodies and L3-4 intervertebral disc. There is mild heterogeneous enhancement with contrast. These findings are consistent with discitis osteomyelitis that are unchanged compared to the previous study. A small abscess is present in the right psoas muscle. The abscess measures 1.4 cm in transverse x 0.2 cm in AP dimensions and is decreased in size compared to the previous study. A drainage tube is present. A small enhancing right paravertebral phlegmon is present. There is extension into the right L2 neural foramen. A small enhancing epidural component is present at the L2-3 level. A small 6 mm abscess is present in the anterior epidural space at the L2 level. This is unchanged compared to the previous study. A diffuse disc bulge is present at the L2-3 level. There is compression of the right L2 nerve in the neural foramen. These findings are unchanged compared to the previous study. An abscess is present in the right psoas muscle at the L3-4 level. A drainage tube is present. The abscess measures 0.8 cm in transverse x 1.7 cm in AP dimensions and is decreased in size compared to the previous study. Analysis is present in the right posterior paravertebral musculature at the L4-5 level. This measures 8 cm in transverse by 1.7 cm and the images and is decreased in size compared to the previous study. A 0.7 cm abscess is present in the right posterior paravertebral musculature at the L4-5 level. A drainage tube is present. This is unchanged compared to the previous study. An abscess is present in the left posterior paravertebral musculature at the L4-5 level. The abscess measures 1.1 cm in transverse x 9.4 cm in AP dimensions and is slightly increased in size compared to the previous study. There are two small six and 7 mm abscesses medial to this abscess. These appear unchanged compared to the previous study pill Disc bulges are present at the L2-3, L3-4, and L4-5 level. There is minimal compression of the thecal sac. IMPRESSION: 1. Findings consistent with discitis osteomyelitis at the L3-4 level that are unchanged compared to the previous study. 2. small 6 mm anterior epidural abscess at the L2 level unchanged compared to the previous study. 3. There has been a decrease in size of the right psoas and right posterior paravertebral abscess that contains drains. There are 2 small 6 and 7 mm abscesses medial to the right posterior paravertebral abscess. There has been an increase in size of the left posterior paravertebral abscess at the L4-5 level. Signed by Filiberto Graves MD 06/08/2017 05:10 P
[2017-06-08] MEDS: traZODone 100 MG TAB PO SCH (20:24)
[2017-06-08 22:00] VITALS: BP 146/84
--- NOTE | 2017-06-09 00:33 | IPN ---
DATE OF SERVICE: 06/07/2017 Ashwini seems to be doing better today. She denies any nausea, vomiting, diarrhea, abdominal pain, fever or chills. No rashes. She was able to move her bowels. She still has a vacuum-assisted closure (VAC) on the incision site. She is afebrile since 06/04. Temperature is 98.5, pulse 87, respirations 19, blood pressure 129/91, oxygen saturation 96% on room air. Heart: Normal S1, S2 with no murmurs. Lungs are clear. No wheezes, rales or rhonchi. Abdomen: Soft, nontender. Extremities: No edema. Back: Has minimal tenderness along the incision site. There is a VAC dressing. LABORATORY DATA: White count is 11.2, hemoglobin 10.6, hematocrit 32.6, platelets 490. ESR is 126. Sodium 135, potassium 4.6, chloride 100, bicarbonate 32, BUN 11, creatinine 0.59, glucose 94, calcium 8.8, CRP 4.87. Wound cultures have been positive for MSSA and positive blood cultures on 06/01, negative blood culture on 06/02. IMPRESSION: 1. Epidural abscess and a right-sided psoas abscess. Both have been drained. The psoas abscess continues to have drainage, about 80 mL yesterday, 25 mL today. The patient on intravenous (IV) cefazolin with marked improvement after surgery and drainage procedure. The patient will need 6 weeks of IV antibiotic until the end of 07/18. 2. History of IV drug use. Currently in remission according to the patient. Urine drug screen was negative. The patient goes to behavioral health addiction. 3. Chronic hepatitis C. Liver profile is normal. Hepatitis C RNA was repeated. She will followup in my office for treatment. PLAN: The patient could be discharged home hopefully on Sunday, will arrange with [facility] IV cefazolin 2 grams every 8 hours for discharge home by Sunday. Also monitor blood work weekly including complete blood count (CBC), basic profile, erythrocyte sedimentation rate (ESR) and C-reactive protein (CRP).
[2017-06-09] MEDS: PERCOCET 5MG/325MG TAB PO PRN ×3 (04:51→21:00)
[2017-06-09 06:00] VITALS: BP 135/77
[2017-06-09] MEDS: SODIUM CHLORIDE 0.9% INJ 10 ML SYR IV SCH ×2 (06:09→17:50)
[2017-06-09 06:34] LABS: BASO % 0.4 % (0.0-1.0); EOS # 0.5 K/mm3 (0.0-0.50); EOS % 4.4 % (0.0-3.0); LARGE UNSTAINED CELL # 0.1 K/mm3 (0.0-0.4); LARGE UNSTAINED CELL % 0.9 % (0.0-4.0); LYMPH # 1.6 K/mm3 (1.5-4.5); LYMPH % 14.7 % (24.0-44.0); MEAN CORPUSCULAR HEMOGLOBIN 29.3 pg (27.0-33.0); MEAN CORPUSCULAR HGB CONC 33.1 g/dl (32.0-36.5); MEAN CORPUSCULAR VOLUME 88.4 fl (80.0-96.0); MONO # 0.4 K/mm3 (0.0-0.8); MONO % 4.1 % (0.0-5.0); NEUTROPHILS % 75.4 % (36.0-66.0); PLATELET COUNT, AUTOMATED 489 k/mm3 (150-450); WHITE BLOOD COUNT 10.6 K/mm3 (4.0-10.0)
[2017-06-09 06:53] LABS: ALBUMIN 2.6 GM/DL (3.2-5.2); ALBUMIN/GLOBULIN RATIO 0.68 (1.00-1.93); ALKALINE PHOSPHATASE 55 U/L (45-117); ALT/SGPT 20 U/L (12-78); ANION GAP 6 MEQ/L (8-16); AST/SGOT 21 U/L (15-37); BILIRUBIN,TOTAL 0.1 MG/DL (0.2-1.0); BLOOD UREA NITROGEN 12 MG/DL (7-18); CALCIUM LEVEL 8.2 MG/DL (8.5-10.1); CARBON DIOXIDE LEVEL 31 MEQ/L (21-32); CHLORIDE LEVEL 101 MEQ/L (98-107); CREATININE FOR GFR 0.55 MG/DL (0.55-1.02); GLOMERULAR FILTRATION RATE > 60.0 (>58); GLUCOSE, FASTING 86 MG/DL (70-105); POTASSIUM SERUM 4.6 MEQ/L (3.5-5.1); SODIUM LEVEL 138 MEQ/L (136-145); TOTAL PROTEIN 6.4 GM/DL (6.4-8.2)
[2017-06-09] MEDS: DULoxetine 30 MG CAP (CYMBALTA) PO SCH (08:35)
[2017-06-09] MEDS: LACTOBACILLUS ACIDOPHILUS CAP (BACID) PO SCH ×2 (08:36→20:49)
[2017-06-09] MEDS: ASCORBIC ACID 500 MG TAB PO SCH (08:36)
[2017-06-09] MEDS: DOCUSATE SODIUM 100 MG CAP PO SCH ×2 (08:36→20:48)
[2017-06-09] MEDS: POTASSIUM CHLORIDE 10 MEQ SR TABLET PO SCH ×2 (08:36→20:49)
[2017-06-09] MEDS: BISACODYL 10 MG SUPP PR PRN (08:43)
[2017-06-09] MEDS: MIRALAX *UNIT DOSE* 17GM PACKET PO PRN (08:43)
[2017-06-09] MEDS: SENNA 8.6 MG TAB (SENOKOT) PO PRN (08:43)
--- NOTE | 2017-06-09 09:53 | IPN ---
DATE: 06/08/2017 She seems to be doing very well. She is anxious to go home. She has a followup MRI scheduled for today to follow up on an abscess on the left epidural space. Dr. Hernández had ordered that and he would recommend interventional radiology to drain it if indicated. Labs: White count is 9.9, hemoglobin 10.6, hematocrit 33.3, and platelets 491. Sodium 139, potassium 4.8, chloride 104, bicarb 31, BUN 14, creatinine 0.5, glucose 83, calcium 8.7, bilirubin 0.3, AST 18, ALT 15, CRP 2.68 down from 21.4. On physical exam, temperature is 98.8, pulse 74, respirations 18, blood pressure 126/79 and O2 sat 98% on room air. Back: Minimal tenderness along the incision. The drain still has about 45 mL drained yesterday total from the right psoas abscess. IMPRESSION: Epidural abscess and right psoas abscess, status post irrigation and debridement (I and D). All cultures positive for methicillin-sensitive Staphylococcus aureus (MSSA), including blood cultures. The patient is doing very well on IV Kefzol 2 grams every 8 hours. CRP is decreasing. There is a residual left-sided epidural abscess along L3 and to L4 and L5 measuring 1.1 x 2.1 cm. PLAN: Followup MRI to be done today to make sure this abscess has decreased in size. I suspect it has as the patient has minimal symptoms, CRP is improving, she is afebrile and doing great. Discharge home today if MRI has improved and the patient will follow up in my office in two to three weeks. Continue Kefzol 2 grams every 8 hours. CBC, CRP and basic profile to be done weekly.
--- NOTE | 2017-06-09 10:40 | IPN ---
DATE: 06/09/2017 Ashwini is on 5 [place]. She is waiting for interventional radiology to drain a psoas abscess on Sunday. No fever or chills. No pain. She actually feels well. No weakness in the arms or legs. Vital signs stable, 135/78, 97.1 degrees. Exam is unchanged from previously documented. LABORATORIES: White count is 10.6, hemoglobin 10.5, creatinine is 0.5 The plan is for interventional radiology to drain psoas abscess on Sunday. She says she has a vaginal yeast infection and is requesting Diflucan, which I ordered. Appreciate the help of consultants, Dr. Adair and Dr. Hernández.
[2017-06-09] MEDS ORDERED: FLUCONAZOLE 50MG TABLET PO ONE (12:00)
[2017-06-09 14:00] VITALS: BP 125/73
[2017-06-09 14:12] LABS: HEPATITIS C QUANTITATION 173900 IU/mL (.)
[2017-06-09] MEDS: traZODone 100 MG TAB PO SCH (20:48)
[2017-06-09] MEDS: SODIUM CHLORIDE 0.9% INJ 10 ML SYR IV PRN (21:49)
[2017-06-09 22:00] VITALS: BP 121/71
[2017-06-10] MEDS: PERCOCET 5MG/325MG TAB PO PRN ×3 (03:30→20:30)
[2017-06-10] MEDS: SODIUM CHLORIDE 0.9% INJ 10 ML SYR IV SCH ×2 (05:26→17:33)
[2017-06-10 06:00] VITALS: BP 125/67
[2017-06-10 06:44] LABS: BASO # 0.1 K/mm3 (0.0-0.2); BASO % 1.4 % (0.0-1.0); EOS # 0.5 K/mm3 (0.0-0.50); EOS % 5.5 % (0.0-3.0); LARGE UNSTAINED CELL # 0.1 K/mm3 (0.0-0.4); LARGE UNSTAINED CELL % 1.6 % (0.0-4.0); LYMPH # 1.8 K/mm3 (1.5-4.5); LYMPH % 20.6 % (24.0-44.0); MEAN CORPUSCULAR HEMOGLOBIN 28.9 pg (27.0-33.0); MEAN CORPUSCULAR HGB CONC 32.3 g/dl (32.0-36.5); MEAN CORPUSCULAR VOLUME 89.7 fl (80.0-96.0); MONO # 0.5 K/mm3 (0.0-0.8); MONO % 5.2 % (0.0-5.0); NEUTROPHILS # 5.8 K/mm3 (1.8-7.7); NEUTROPHILS % 65.5 % (36.0-66.0); PLATELET COUNT, AUTOMATED 512 k/mm3 (150-450); WHITE BLOOD COUNT 8.9 K/mm3 (4.0-10.0)
[2017-06-10 07:15] LABS: ALBUMIN 2.6 GM/DL (3.2-5.2); ALBUMIN/GLOBULIN RATIO 0.72 (1.00-1.93); ALKALINE PHOSPHATASE 50 U/L (45-117); ALT/SGPT 20 U/L (12-78); ANION GAP 4 MEQ/L (8-16); AST/SGOT 24 U/L (15-37); BILIRUBIN,TOTAL 0.2 MG/DL (0.2-1.0); BLOOD UREA NITROGEN 14 MG/DL (7-18); CALCIUM LEVEL 8.5 MG/DL (8.5-10.1); CARBON DIOXIDE LEVEL 30 MEQ/L (21-32); CHLORIDE LEVEL 99 MEQ/L (98-107); CREATININE FOR GFR 0.52 MG/DL (0.55-1.02); GLOMERULAR FILTRATION RATE > 60.0 (>58); GLUCOSE, FASTING 81 MG/DL (70-105); POTASSIUM SERUM 4.9 MEQ/L (3.5-5.1); SODIUM LEVEL 133 MEQ/L (136-145); TOTAL PROTEIN 6.2 GM/DL (6.4-8.2)
[2017-06-10] MEDS: POTASSIUM CHLORIDE 10 MEQ SR TABLET PO SCH (08:18)
[2017-06-10] MEDS: ASCORBIC ACID 500 MG TAB PO SCH (08:18)
[2017-06-10] MEDS: DULoxetine 30 MG CAP (CYMBALTA) PO SCH (08:18)
[2017-06-10] MEDS: DOCUSATE SODIUM 100 MG CAP PO SCH ×2 (08:18→20:30)
[2017-06-10] MEDS: LACTOBACILLUS ACIDOPHILUS CAP (BACID) PO SCH ×2 (08:18→20:29)
--- NOTE | 2017-06-10 09:33 | IPN ---
DATE: 06/10/2017 Ashwini feels about the same, perhaps a little more right flank pain, but no fever or chills. No weakness in her legs. She is supposed to be getting an abscess drained by interventional radiology tomorrow. There is no interventional radiology support over the weekend. Her condition has not reached the point where I feel she needs urgent transfer over the weekend. Physical Examination: Afebrile at 97.2. Vital signs stable. 125/67. Lungs clear. Heart regular rate and rhythm. Abdomen soft, nontender. Little pain in the right flank to palpate. No palpable mass. Normal strength, reflexes, sensation in the legs. Labs: Potassium is up to 4.9. White count is down to 8.9. Plan: Today, we stopped her supplemental potassium. She is supposed to be getting an abscess drained by interventional radiology tomorrow. I do not think she warrants transfer to a higher level of care to have this done over the weekend. She is being also followed by Dr. Adair and Dr. Hernández. Their help is appreciated.
[2017-06-10 14:00] VITALS: BP 137/79
[2017-06-10] MEDS: MORPHINE 2 MG/ML 1ML SYRINGE IV PRN (17:33)
[2017-06-10] MEDS: traZODone 100 MG TAB PO SCH (20:30)
[2017-06-10 22:00] VITALS: BP 137/68
[2017-06-11] MEDS: ACETAMINOPHEN TAB 650MG DOSE (2X325MG) PO PRN (04:02)
[2017-06-11] MEDS: SODIUM CHLORIDE 0.9% INJ 10 ML SYR IV SCH (05:06)
[2017-06-11 05:23] LABS: BASO # 0.1 K/mm3 (0.0-0.2); EOS # 0.4 K/mm3 (0.0-0.50); EOS % 4.8 % (0.0-3.0); LARGE UNSTAINED CELL # 0.1 K/mm3 (0.0-0.4); LARGE UNSTAINED CELL % 1.6 % (0.0-4.0); LYMPH # 1.7 K/mm3 (1.5-4.5); LYMPH % 19.9 % (24.0-44.0); MEAN CORPUSCULAR HEMOGLOBIN 28.4 pg (27.0-33.0); MEAN CORPUSCULAR HGB CONC 31.8 g/dl (32.0-36.5); MEAN CORPUSCULAR VOLUME 89.5 fl (80.0-96.0); MONO # 0.5 K/mm3 (0.0-0.8); MONO % 5.6 % (0.0-5.0); NEUTROPHILS # 5.9 K/mm3 (1.8-7.7); NEUTROPHILS % 67.1 % (36.0-66.0); PLATELET COUNT, AUTOMATED 474 k/mm3 (150-450); RED CELL DISTRIBUTION WIDTH 14.2 % (11.5-14.5); WHITE BLOOD COUNT 8.7 K/mm3 (4.0-10.0)
[2017-06-11 05:37] LABS: ALBUMIN 2.6 GM/DL (3.2-5.2); ALBUMIN/GLOBULIN RATIO 0.76 (1.00-1.93); ALKALINE PHOSPHATASE 49 U/L (45-117); ALT/SGPT 21 U/L (12-78); ANION GAP 6 MEQ/L (8-16); AST/SGOT 22 U/L (15-37); BILIRUBIN,TOTAL 0.2 MG/DL (0.2-1.0); BLOOD UREA NITROGEN 15 MG/DL (7-18); CALCIUM LEVEL 7.7 MG/DL (8.5-10.1); CARBON DIOXIDE LEVEL 29 MEQ/L (21-32); CHLORIDE LEVEL 100 MEQ/L (98-107); CREATININE FOR GFR 0.63 MG/DL (0.55-1.02); GLOMERULAR FILTRATION RATE > 60.0 (>58); GLUCOSE, FASTING 90 MG/DL (70-105); POTASSIUM SERUM 4.1 MEQ/L (3.5-5.1); SODIUM LEVEL 135 MEQ/L (136-145)
[2017-06-11 06:00] VITALS: BP 112/69
[2017-06-11] MEDS: DULoxetine 30 MG CAP (CYMBALTA) PO SCH (08:33)
[2017-06-11] MEDS: LACTOBACILLUS ACIDOPHILUS CAP (BACID) PO SCH (08:33)
[2017-06-11] MEDS: DOCUSATE SODIUM 100 MG CAP PO SCH (08:33)
[2017-06-11] MEDS: ASCORBIC ACID 500 MG TAB PO SCH (08:33)
[2017-06-11 09:40] LABS: ERYTHROCYTE SEDIMENTATION RATE 54 mm/hr (0-20)
[2017-06-11] MEDS: PERCOCET 5MG/325MG TAB PO PRN (12:04)
[2017-06-11] MEDS: MORPHINE 2 MG/ML 1ML SYRINGE IV PRN (12:57)
[2017-06-11] MEDS ORDERED: LIDOCAINE 1% MDV 20ML VIAL As Ordered ONE (13:22)
[2017-06-11 14:00] VITALS: BP 135/71
--- NOTE | 2017-06-11 15:59 | REP ---
ULTRASOUND PARASPINOUS SOFT TISSUES: Real-time sonographic of the paraspinous soft tissues performed posteriorly with special attention paid to the left L4-5 level, where a small fluid collection was seen on recent MRI dated 06/08/2017. I do not see significant fluid collection in this region. The fluid collection is either too small to visualize or has resolved. Ultrasound guided drainage is therefore not performed. Signed by Basim Ingram MD 06/11/2017 05:27 P
--- NOTE | 2017-06-12 10:10 | IPN ---
DATE: 06/11/2017 Ashwini has been doing great. She only has minimal pain in the back area 01/26. She is ready for discharge. She had an MRI done last Sunday which showed a persistent paravertebral abscess on the left side, improving psoas abscess on the right side. She was scheduled to have drainage procedure done today. She had an ultrasound which did not show any evidence of the collection and therefore drainage procedure could not be done. She is clinically doing great. White count 8.7, hemoglobin of 9.8, hematocrit 30.8, platelet 474. ESR 54 down from 126, sodium 135, potassium 4.1, chloride 100, bicarb 29, BUN 50, creatinine 0.63, glucose 90, calcium 7.7. AST 22, ALT 21, alk phos 49, CRP 0.87 down from 21.4. Wound cultures from 06/04 had Methicillin-sensitive staphylococcus aureus (MSSA) but AFB smear was negative. Fungal smear was negative. Cultures are pending. MRI done on 06/08 shows discitis, osteomyelitis at L3-L4. Small 6 mm epidural abscess at L2 level unchanged compared to previous studies. A decrease in size of the right psoas abscess and right posterior paravertebral abscesses that contained the drains, two small 6 and 7 mm abscesses medial to the right posterior paravertebral abscesses as well. There has been an increase though of the size of the left posterior paravertebral abscess at L4-L5. Attempted ultrasound guided aspiration of this abscess today was not successful as they could not see the lesion on the ultrasound. PLAN: Continue IV cefazolin. The patient will continue with antibiotics until end june for total of 6 weeks. She will go home on Kefzol grams every 8 hours. Workup will include CBC, basic, CRP, sedimentation rate weekly. She will follow up with my office in 3 days. The drain from the psoas abscess will remain in place today as she has persistent drainage of 40 mL on 06/10, 20 mL on 06/11 and 20 mL today. I have opted to keep the drain for another 3 days.
--- NOTE | 2017-06-12 11:15 | DSES ---
DATE OF ADMISSION: 05/31/2017 DATE OF DISCHARGE: 06/11/2017 REASON FOR ADMISSION: The patient was admitted on 05/31/2017 with known psoas abscess. She had a history of infection related to IV drug use, although she says she stopped doing that for several months. This has included hepatitis C, discitis, psoas abscess and spinal abscesses on multiple levels. She had a drain that was placed by Dr. Hernández. Procedures have been done to facilitate drainage of these lesions including placement of a drain by Dr. Hernández on 06/04/2017. In addition, she has undergone percutaneous needle drainage on June 05 and June 01. June 01 was a right psoas muscle drainage performed with Dr. Ingram and Clinton Ugalde. On the , she had only placement of a peripherally inserted central catheter (PICC) line. June 08 MRI had shown a slight increase in fluid in the left posterior paravertebral musculature that measured 1.1 x 9.4 cm and was slightly increased in size compared to previous study. When she went back to radiology to have ultrasound guided drainage that fluid collection was no longer visible and needle drainage was not possible. Therefore, at this time, she is a candidate for discharge and will be sent home with IV Kefzol 2 grams every 8 hours and this will be continued until followup with Dr. Adair in approximately 2 weeks. PICC line is in place to facilitate IV antibiotic therapy located in the left basilic vein. DISCHARGE DIAGNOSIS 1. Psoas abscess, multilevel paraspinous abscesses/epidural abscesses. Status post percutaneous drainage and placement of drainage tube. The drain tube will be removed today before discharge. Followup with Dr. Adair's office in [address] Hernández per his recommendation. Discharge orders have already been completed and finalized by Opal Chow. She will have a followup with Opal Chow on 06/13/2017 at 8:00 a.m.
== END 2017-06-11 17:15 | disposition home health service (06) | DRG 710 ==
LOC: M ED 11:52 → M ED INP 17:55 → M PCU 21:19 → M MSPAV 06-02 16:36 → M PCU 06-04 17:45 → M MS5PR 06-07 16:11
PROVIDERS: ADMIT Internal Medicine; ATTEND Family Medicine
PROC: 0Q903ZZ Drainage of Lumbar Vertebra, Percutaneous Approach (ICD-10-PCS; 2017-06-01)
PROC: 0K9N3ZZ Drainage of Right Hip Muscle, Percutaneous Approach (ICD-10-PCS; 2017-06-01)
PROC: 00930ZZ Drainage of Intracranial Epidural Space, Open Approach (ICD-10-PCS; principal; 2017-06-04 14:00)
PROC: 05H533Z Insertion of Infusion Device into Right Subclavian Vein, Percutaneous Approach (ICD-10-PCS; 2017-06-05)
DX: A41.01 Sepsis due to Methicillin susceptible Staphylococcus aureus (principal); G06.2 Extradural and subdural abscess, unspecified; K68.12 Psoas muscle abscess; F32.9 Major depressive disorder, single episode, unspecified; B18.2 Chronic viral hepatitis C; F41.9 Anxiety disorder, unspecified; M46.46 Discitis, unspecified, lumbar region; R19.7 Diarrhea, unspecified; D50.9 Iron deficiency anemia, unspecified; E87.6 Hypokalemia; K59.00 Constipation, unspecified; I10 Essential (primary) hypertension; N39.0 Urinary tract infection, site not specified; B96.20 Unspecified Escherichia coli [E. coli] as the cause of diseases classified elsewhere; Z88.8 Allergy status to other drugs, medicaments and biological substances; Z88.0 Allergy status to penicillin; Z91.013 Allergy to seafood; Z91.030 Bee allergy status; Z79.899 Other long term (current) drug therapy; Z88.1 Allergy status to other antibiotic agents

== ENCOUNTER 2019-05-11 23:06 | Emergency (ER) | payer OTHER ==
[~2019-05-11] VITALS: Ht 162.6 cm; Wt 61.4 kg
[~2019-05-11 23:06] MED LIST changes: +CEFA2INJ3 IV; +DULO1CAP3 PO; -TRAZ-136 PO; +TRAZ-163 PO; +TYLE500T78 PO
[2019-05-12 00:40] LABS: BASO % 0.5 % (0.0-1.0); EOS # 0.2 10^3/uL (0.0-0.50); EOS % 2.4 % (0.0-3.0); HEMATOCRIT 37.3 % (36.0-47.0); HEMOGLOBIN 12.3 g/dl (12.0-15.5); LYMPH % 25.9 % (24.0-44.0); MEAN CORPUSCULAR HEMOGLOBIN 30.4 pg (27.0-33.0); MEAN CORPUSCULAR VOLUME 92.3 fl (80.0-96.0); MONO # 0.6 10^3/uL (0.0-0.8); MONO % 7.9 % (0.0-5.0); NEUTROPHILS % 62.9 % (36.0-66.0); PLATELET COUNT, AUTOMATED 246 10^3/uL (150-450); RED BLOOD COUNT 4.04 10^6/uL (4.00-5.40); WHITE BLOOD COUNT 7.9 10^3/uL (4.0-10.0)
[2019-05-12 00:43] LABS: INR 1.04; PROTHROMBIN TIME 13.3 SECONDS (11.8-14.0)
[2019-05-12 00:46] LABS: D-DIMER QUANT 332.49 ng/ml (<500)
[2019-05-12 00:55] LABS: PARTIAL THROMBOPLASTIN TIME 20.7 SECONDS (25.0-38.4)
[2019-05-12 01:04] LABS: ALBUMIN 3.3 GM/DL (3.2-5.2); ALT/SGPT 50 U/L (12-78); BILIRUBIN,DIRECT < 0.1 MG/DL (0.0-0.2); BILIRUBIN,TOTAL 0.1 MG/DL (0.2-1.0); BLOOD UREA NITROGEN 16 MG/DL (7-18); CALCIUM LEVEL 8.8 MG/DL (8.5-10.1); CARBON DIOXIDE LEVEL 27 MEQ/L (21-32); CHLORIDE LEVEL 108 MEQ/L (98-107); CK-MB VALUE MASS 1.4 NG/ML (<3.6); CPK CREATINE PHOSPHOKINASE 62 U/L (26-192); CREATININE FOR GFR 0.77 MG/DL (0.55-1.30); GLOMERULAR FILTRATION RATE > 60.0 (>58); GLUCOSE, FASTING 93 MG/DL (70-100); LIPASE 114 U/L (73-393); MB/CK RELATIVE INDEX 2.26 (< OR =4); POTASSIUM SERUM 4.1 MEQ/L (3.5-5.1); SODIUM LEVEL 141 MEQ/L (136-145); TOTAL PROTEIN 7.1 GM/DL (6.4-8.2); TROPONIN I < 0.02 NG/ML (< 0.10)
[2019-05-12 01:31] VITALS: BP 145/86
--- NOTE | 2019-05-12 07:10 | REP ---
Clinical: Acute chest pain . Comparison: 02/16/2017 . Technique: PA and lateral. Findings: The mediastinum and cardiac silhouette are normal. The lung colindres are clear and without acute consolidation, effusion, or pneumothorax. The skeletal structures are intact and normal. Impression: 1. No acute cardiopulmonary process. Electronically Signed by García Regalado MD 05/12/2019 07:01 A
--- NOTE | 2019-05-12 07:11 | ECGEPIP ---
[facility] - ED Test Date: 2019-05-11 Pat Name: OLIVER THOMPSON Department: Room: - Gender: Female Lab Support Technician: chris : [id number] Requested By: VENTURA BARNETT Order Number: [id number] Reading MD: Urbano Mckinnon Measurements Intervals [place] Rate: 78 P: 50 NM: 168 QRS: 23 QRSD: 83 T: 49 QT: 363 QTc: 414 Interpretive Statements SINUS RHYTHM POSSIBLE LEFT ATRIAL ENLARGEMENT SEPTAL MYOCARDIAL INFARCTION, OF INDETERMINATE AGE SIMILAR TO 02/16/17 Electronically Signed on 05-12-2019 7:11:23 EDT by Urbano Mckinnon
== END 2019-05-12 01:32 | disposition home or self-care (01) ==
LOC: M ED 23:06
DX: R07.89 Other chest pain (principal); I10 Essential (primary) hypertension; K21.9 Gastro-esophageal reflux disease without esophagitis; Z79.899 Other long term (current) drug therapy; Z91.030 Bee allergy status; Z88.1 Allergy status to other antibiotic agents; Z88.0 Allergy status to penicillin; Z91.013 Allergy to seafood; Z91.89 Other specified personal risk factors, not elsewhere classified

== ENCOUNTER → 2019-05-27 | Outpatient (CLI) | payer MEDICAID ==
[~2019-05-27] MED LIST changes: -DULO1CAP3 PO; +DULO1CAP6 PO
== END ==
LOC: M OUTALCOH 08:15
PROVIDERS: ATTEND Psychiatry & Neurology Psychiatry
DX: Z03.89 Encounter for observation for other suspected diseases and conditions ruled out (principal)

== ENCOUNTER 2019-06-13 11:00 | Outpatient (RCR) | payer MEDICAID | END 2019-06-18 | LOC: M OUTALCOH 11:00 | PROVIDERS: ATTEND Psychiatry & Neurology Psychiatry | DX: F15.10 Other stimulant abuse, uncomplicated (principal) ==

== ENCOUNTER 2019-07-14 14:00 | Outpatient (RCR) | payer MEDICAID ==
[~2019-07-14 14:00] MED LIST changes: -DIPH25CA PO; +DIPH25CA32 PO; +LISI20TA20 PO; -LISI20TA3 PO
== END 2019-07-19 ==
LOC: M OUTALCOH 14:00
PROVIDERS: ATTEND Psychiatry & Neurology Psychiatry
DX: F15.10 Other stimulant abuse, uncomplicated (principal)

== ENCOUNTER → 2019-11-18 | Outpatient (RCR) | payer MEDICAID | LOC: M OUTALCOH 14:56 | PROVIDERS: ATTEND Psychiatry & Neurology Psychiatry | DX: F15.10 Other stimulant abuse, uncomplicated (principal) ==

== ENCOUNTER → 2019-11-30 | Outpatient (CLI) | payer OTHER ==
[~2019-11-30] MED LIST changes: -TRAZ-163 PO; +TRAZ-257 PO
--- NOTE | 2019-12-01 07:21 | REP ---
CHEST, TWO VIEWS: There is no evidence of acute infiltrate. No pleural effusion is seen. The heart is normal in size. The mediastinal silhouette is unremarkable. The visualized osseous structures are intact. There appears to be a healed rib fracture on the left anterolaterally, the left 6th rib. IMPRESSION: No acute pulmonary disease. Electronically Signed by Basim Ingram MD 12/01/2019 05:55 P
== END ==
LOC: M LRY 16:49
PROVIDERS: ATTEND Physician Assistant
DX: R05 Cough (principal); R06.02 Shortness of breath

== ENCOUNTER 2019-12-08 08:45 | Outpatient (RCR) | payer MEDICAID | END 2019-12-19 | LOC: M OUTALCOH 08:45 | PROVIDERS: ATTEND Psychiatry & Neurology Psychiatry | DX: F15.20 Other stimulant dependence, uncomplicated (principal) ==

== ENCOUNTER → 2024-02-04 | Outpatient (CLI) | payer OTHER ==
[~2024-02-04] MED LIST changes: -CYMB60CA3 PO; +CYMB60CA4 PO; +DIPH-435 PO; -DIPH25CA32 PO; -LISI20TA20 PO; +LISI20TA37 PO; +VITA-243 PO; -VITA500T PO
== END ==
LOC: M RAD 09:27
PROVIDERS: ATTEND Pediatrics
DX: B19.20 Unspecified viral hepatitis C without hepatic coma (principal)

== ENCOUNTER → 2024-06-30 | Outpatient (REF) | payer MEDICAID, OTHER ==
[2024-06-30 15:17] LABS: BLOOD UREA NITROGEN 15 MG/DL (9-23); CALCIUM LEVEL 9.3 MG/DL (8.5-10.1); CARBON DIOXIDE LEVEL 27 MMOL/L (20-31); CHLORIDE LEVEL 105 MMOL/L (98-107); CHOLESTEROL LEVEL 217 MG/DL (<200); CHOLESTEROL RISK RATIO 2.39 (<5); CREATININE FOR GFR 0.71 MG/DL (0.55-1.30); GLOMERULAR FILTRATION RATE > 60.0 (>51); GLUCOSE, FASTING 98 MG/DL (60-100); HDL CHOLESTEROL 90.5 MG/DL (>40); LDL CHOLESTEROL 114.5 MG/DL (<100); NON-HDL-C 126.5 MG/DL; POTASSIUM SERUM 4.1 MMOL/L (3.5-5.1); SODIUM LEVEL 138 MMOL/L (136-145); TRIGLYCERIDES LEVEL 60 MG/DL (<150)
[2024-06-30 15:18] LABS: THYROID STIMULATING HORMONE 2.916 uIU/ML (0.55-4.78)
[2024-07-02 20:17] LABS: HCV RNA log10 4.77 Log IU/mL (NOT DETECTED)
== END ==
LOC: M LAB REF 12:59
PROVIDERS: ATTEND Pediatrics
DX: I10 Essential (primary) hypertension (principal); B19.20 Unspecified viral hepatitis C without hepatic coma; E78.5 Hyperlipidemia, unspecified; E55.9 Vitamin D deficiency, unspecified

== ENCOUNTER → 2024-07-29 | Outpatient (CLI) | payer OTHER | LOC: M WHC 13:22 | PROVIDERS: ATTEND Pediatrics | DX: Z12.31 Encounter for screening mammogram for malignant neoplasm of breast (principal) ==

== ENCOUNTER → 2024-08-22 | Outpatient (CLI) | payer OTHER | LOC: M RAD 09:31 | PROVIDERS: ATTEND Pediatrics | DX: N28.1 Cyst of kidney, acquired (principal) ==